=== PATIENT | male | born 1970 | race African-American/Black ===

== ENCOUNTER 2024-10-22 13:43 | Emergency (ER) | payer OTHER ==
--- OUTSIDE RECORDS SUMMARY | 2024-10-22 13:57 | XMS REPORT | Continuity of Care Document ---
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 [id number] Apply to area(s) 2 (two) times daily for 10 days. [facility] gentamicin 0.1 % ointment 2021-06 00:00: 00 05-19 05:59 :00 No [id number] Apply to area(s) 2 (two) times daily for 14 days. [facility] doxycycline hyclate 100 mg capsule 2021-06 1 00:00: 00 05-11 05:59 :00 No [id number] 100mg Take 1 capsule by mouth every 12 (twelve) hours for 14 days. [facility] doxycycline hyclate 100 mg capsule 03-22 00:00: 00 04-06 04:59 :00 No [id number] 100mg Take 1 capsule by mouth every 12 (twelve) hours for 14 days. [facility] doxycycline hyclate 100 mg capsule - 00:00: 00 03-16 04:59 :00 No [id number] 100mg Take 1 capsule by mouth every 12 (twelve) hours for 14 days. [facility] acetaminoph en (TYLENOL EXTRA STRENGTH) 500 mg tablet 12-21 11:59: 21 Yes 500mg Take 500 mg by mouth every 6 (six) hours as needed for Pain. [facility] clotrimazol e-betametha sone (LOTRISONE) cream 09-03 00:00: 00 12-30 00:00 :00 No [id number] Apply to area(s) 2 (two) times daily. [facility] Zinc Oxide (UNNA-FLEX ELASTIC UNNA BOOT) 4 X 10 "-yard [facility] 07-26 00:00: 00 Yes [id number] Use as directed [facility] Zinc Oxide (UNNA-FLEX ELASTIC UNNA BOOT) 4 X 10 "-yard [facility] 07-26 00:00: 00 Yes [id number] Use as directed [facility] ergocalcife rol, vitamin d2, (VITAMIN D2) 1,250 mcg (50,000 unit) capsule 2020-06 00:00: 00 Yes [id number] Take 1 capsule by mouth weekly. [facility] Non-Adheren t Bandage (MEPITEL) 2 X 3 " [facility] 2020-06 00:00: 00 Yes [id number] Use as directed [facility] Non-Adheren t Bandage (MEPITEL) 2 X 3 " [facility] 2020-06 0 00:00: 00 Yes [id number] Use as directed [facility] silver sulfate-non adh bandage 6 X 8 " [facility] - 00:00: 00 Yes [id number] Use as directed [facility] silver sulfate-non adh bandage 6 X 8 " [facility] 01-11 00:00: 00 Yes [id number] Use as directed [facility] omeprazole 40 mg capsule 11-25 00:00: 00 12-21 00:00 :00 No [id number] 40mg Take 1 capsule by mouth 2 (two) times daily. [facility] sodium hypochlorit e 0.125 % (DAKIN'S SOLUTION) solution 11-16 00:00: 00 Yes [id number] Apply to area(s) daily. [facility] lisinopriL- hydrochloro thiazide 20-12.5 mg per tablet 4-13 00:00: 00 02-23 00:00 :00 No [id number] 1{tbl} Take 1 tablet by mouth daily. [facility] calamine-zi nc oxide lotion 354 mL 07-23 17:12: 00 Yes 354mL [facility] Foam Bandage-Sadaf alva Sulfate (MEPILEX AG) 6 X 6 " [facility] 2018-06 0 00:00: 00 Yes [id number] Use as directed. Place over open wounds. [facility] Foam Bandage-Sadaf alva Sulfate (MEPILEX AG) 6 X 6 " [facility] 2018-06 0 00:00: 00 Yes [id number] Use as directed. Place over open wounds. [facility] silver nitrate applicator 2018-06 00:00: 00 12-21 00:00 :00 No [id number] 1{appli cator} Apply 1 Applicator to area(s) as needed (wound care). [facility] Immunizations Ordered Immunization Name Filled Immunization Name Date Status Comments Source Flu Injectable [facility]CK Pres-Free (FLUCELVAX) 2024-04-01 00:00:00 Completed [facility] SARS-COV-2 COVID-19 MODERNA 12+ YRS VACCINE 2024-03-19 15:00:00 Completed [facility] TDAP 2024-03-19 15:00:00 Completed [facility] Influenza Virus Vaccine Quad IM, Preserv and ABX Free 6 MO-64 YRS (FLUCELVAX) 2024-03-19 15:00:00 Completed [facility] SARS-COV-2 COVID-19 MODERNA 12+ YRS VACCINE 2024-03-05 09:30:00 Completed [facility] TDAP 2024-03-05 09:30:00 Completed [facility] SARS-COV-2 COVID-19 MODERNA 12+ YRS VACCINE 2023-12-12 09:30:00 Completed [facility] TDAP 2023-12-12 09:30:00 Completed [facility] Influenza Virus Vaccine Quad IM, Preserv and ABX Free 6 MO-64 YRS (FLUCELVAX) 2023-12-12 09:30:00 Completed [facility] SARS-COV-2 COVID-19 MODERNA 12+ YRS VACCINE 2023-12-08 10:15:00 Completed [facility] TDAP 2023-12-08 10:15:00 Completed [facility] Influenza Virus Vaccine Quad IM, Preserv and ABX Free 6 MO-64 YRS (FLUCELVAX) 2023-12-08 10:15:00 Completed [facility] SARS-COV-2 COVID-19 MODERNA 12+ YRS VACCINE 2023-12-05 10:15:00 Completed [facility] TDAP 2023-12-05 10:15:00 Completed [facility] Influenza Virus Vaccine Quad IM, Preserv and ABX Free 6 MO-64 YRS (FLUCELVAX) 2023-12-05 10:15:00 Completed [facility] SARS-COV-2 COVID-19 MODERNA 12+ YRS VACCINE 2023-11-30 10:15:00 Completed [facility] TDAP 2023-11-30 10:15:00 Completed [facility] Influenza Virus Vaccine Quad IM, Preserv and ABX Free 6 MO-64 YRS (FLUCELVAX) 2023-11-30 10:15:00 Completed [facility] SARS-COV-2 COVID-19 MODERNA 12+ YRS VACCINE 2023-11-24 11:00:00 Completed [facility] TDAP 2023-11-24 11:00:00 Completed [facility] Influenza Virus Vaccine Quad IM, Preserv and ABX Free 6 MO-64 YRS (FLUCELVAX) 2023-11-24 11:00:00 Completed [facility] SARS-COV-2 COVID-19 MODERNA 12+ YRS VACCINE 2023-11-10 11:00:00 Completed [facility] TDAP 2023-11-10 11:00:00 Completed [facility] Influenza Virus Vaccine Quad IM, Preserv and ABX Free 6 MO-64 YRS (FLUCELVAX) 2023-11-10 11:00:00 Completed [facility] SARS-COV-2 COVID-19 MODERNA 12+ YRS VACCINE 2023-11-03 14:30:00 Completed [facility] TDAP 2023-11-03 14:30:00 Completed [facility] Influenza Virus Vaccine Quad IM, Preserv and ABX Free 6 MO-64 YRS (FLUCELVAX) 2023-11-03 14:30:00 Completed [facility] SARS-COV-2 COVID-19 MODERNA 12+ YRS VACCINE 2023-10-31 14:30:00 Completed [facility] TDAP 2023-10-31 14:30:00 Completed [facility] Influenza Virus Vaccine Quad IM, Preserv and ABX Free 6 MO-64 YRS (FLUCELVAX) 2023-10-31 14:30:00 Completed [facility] SARS-COV-2 COVID-19 MODERNA 12+ YRS VACCINE 2023-10-26 08:00:00 Completed [facility] TDAP 2023-10-26 08:00:00 Completed [facility] Influenza Virus Vaccine Quad IM, Preserv and ABX Free 6 MO-64 YRS (FLUCELVAX) 2023-10-26 08:00:00 Completed [facility] SARS-COV-2 COVID-19 MODERNA 12+ YRS VACCINE 2023-10-20 14:00:00 Completed [facility] TDAP 2023-10-20 14:00:00 Completed [facility] Influenza Virus Vaccine Quad IM, Preserv and ABX Free 6 MO-64 YRS (FLUCELVAX) 2023-10-20 14:00:00 Completed [facility] SARS-COV-2 COVID-19 MODERNA 12+ YRS VACCINE 2023-10-17 15:15:00 Completed [facility] TDAP 2023-10-17 15:15:00 Completed [facility] Influenza Virus Vaccine Quad IM, Preserv and ABX Free 6 MO-64 YRS (FLUCELVAX) 2023-10-17 15:15:00 Completed [facility] SARS-COV-2 COVID-19 MODERNA 12+ YRS VACCINE 2023-10-12 13:00:00 Completed [facility] TDAP 2023-10-12 13:00:00 Completed [facility] Influenza Virus Vaccine Quad IM, Preserv and ABX Free 6 MO-64 YRS (FLUCELVAX) 2023-10-12 13:00:00 Completed [facility] SARS-COV-2 COVID-19 MODERNA 12+ YRS VACCINE 2023-10-06 08:45:00 Completed [facility] TDAP 2023-10-06 08:45:00 Completed [facility] Influenza Virus Vaccine Quad IM, Preserv and ABX Free 6 MO-64 YRS (FLUCELVAX) 2023-10-06 08:45:00 Completed [facility] SARS-COV-2 COVID-19 MODERNA 12+ YRS VACCINE 2023-10-04 00:00:00 Completed [facility] TDAP 2023-10-04 00:00:00 Completed [facility] Influenza Virus Vaccine Quad IM, Preserv and ABX Free 6 MO-64 YRS (FLUCELVAX) 2023-10-04 00:00:00 Completed [facility] SARS-COV-2 COVID-19 MODERNA 12+ YRS VACCINE 2023-10-03 08:00:00 Completed [facility] TDAP 2023-10-03 08:00:00 Completed [facility] Influenza Virus Vaccine Quad IM, Preserv and ABX Free 6 MO-64 YRS (FLUCELVAX) 2023-10-03 08:00:00 Completed [facility] SARS-COV-2 COVID-19 MODERNA 12+ YRS VACCINE 2023-10-02 00:00:00 Completed [facility] TDAP 2023-10-02 00:00:00 Completed [facility] Influenza Virus Vaccine Quad IM, Preserv and ABX Free 6 MO-64 YRS (FLUCELVAX) 2023-10-02 00:00:00 Completed [facility] SARS-COV-2 COVID-19 MODERNA 12+ YRS VACCINE 2023-09-29 11:30:00 Completed [facility] TDAP 2023-09-29 11:30:00 Completed [facility] Influenza Virus Vaccine Quad IM, Preserv and ABX Free 6 MO-64 YRS (FLUCELVAX) 2023-09-29 11:30:00 Completed [facility] Influenza Virus Vaccine Quad IM, Preserv and ABX Free 6 MO-64 YRS (FLUCELVAX) 2023-09-29 10:30:00 Completed [facility] SARS-COV-2 COVID-19 MODERNA 12+ YRS VACCINE 2023-09-29 10:30:00 Completed [facility] TDAP 2023-09-29 10:30:00 Completed [facility] SARS-COV-2 COVID-19 MODERNA 12+ YRS VACCINE 2023-09-27 15:15:00 Completed [facility] TDAP 2023-09-27 15:15:00 Completed [facility] Influenza Virus Vaccine Quad IM, Preserv and ABX Free 6 MO-64 YRS (FLUCELVAX) 2023-09-27 15:15:00 Completed [facility] SARS-COV-2 COVID-19 MODERNA 12+ YRS VACCINE 2023-09-15 14:00:00 Completed [facility] TDAP 2023-09-15 14:00:00 Completed [facility] Influenza Virus Vaccine Quad IM, Preserv and ABX Free 6 MO-64 YRS (FLUCELVAX) 2023-09-15 14:00:00 Completed [facility] SARS-COV-2 COVID-19 MODERNA 12+ YRS VACCINE 2023-09-12 15:15:00 Completed [facility] TDAP 2023-09-12 15:15:00 Completed [facility] Influenza Virus Vaccine Quad IM, Preserv and ABX Free 6 MO-64 YRS (FLUCELVAX) 2023-09-12 15:15:00 Completed [facility] SARS-COV-2 COVID-19 MODERNA 12+ YRS VACCINE 2023-09-06 13:00:00 Completed [facility] TDAP 2023-09-06 13:00:00 Completed [facility] Influenza Virus Vaccine Quad IM, Preserv and ABX Free 6 MO-64 YRS (FLUCELVAX) 2023-09-06 13:00:00 Completed [facility] SARS-COV-2 COVID-19 MODERNA 12+ YRS VACCINE 2023-09-06 00:00:00 Completed [facility] TDAP 2023-09-06 00:00:00 Completed [facility] Influenza Virus Vaccine Quad IM, Preserv and ABX Free 6 MO-64 YRS (FLUCELVAX) 2023-09-06 00:00:00 Completed [facility] SARS-COV-2 COVID-19 MODERNA 12+ YRS VACCINE 2023-09-06 00:00:00 Completed [facility] TDAP 2023-09-06 00:00:00 Completed [facility] Influenza Virus Vaccine Quad IM, Preserv and ABX Free 6 MO-64 YRS (FLUCELVAX) 2023-09-06 00:00:00 Completed [facility] SARS-COV-2 COVID-19 MODERNA 12+ YRS VACCINE 2023-09-04 00:00:00 Completed [facility] TDAP 2023-09-04 00:00:00 Completed [facility] Influenza Virus Vaccine Quad IM, Preserv and ABX Free 6 MO-64 YRS (FLUCELVAX) 2023-09-04 00:00:00 Completed [facility] SARS-COV-2 COVID-19 MODERNA 12+ YRS VACCINE 2023-09-01 15:15:00 Completed [facility] TDAP 2023-09-01 15:15:00 Completed [facility] Influenza Virus Vaccine Quad IM, Preserv and ABX Free 6 MO-64 YRS (FLUCELVAX) 2023-09-01 15:15:00 Completed [facility] SARS-COV-2 COVID-19 MODERNA 12+ YRS VACCINE 2023-09-01 00:00:00 Completed [facility] TDAP 2023-09-01 00:00:00 Completed [facility] Influenza Virus Vaccine Quad IM, Preserv and ABX Free 6 MO-64 YRS (FLUCELVAX) 2023-09-01 00:00:00 Completed [facility] SARS-COV-2 COVID-19 MODERNA 12+ YRS VACCINE 2023-08-25 16:00:00 Completed [facility] TDAP 2023-08-25 16:00:00 Completed [facility] Influenza Virus Vaccine Quad IM, Preserv and ABX Free 6 MO-64 YRS (FLUCELVAX) 2023-08-25 16:00:00 Completed [facility] SARS-COV-2 COVID-19 MODERNA 12+ YRS VACCINE 2023-08-23 00:00:00 Completed [facility] TDAP 2023-08-23 00:00:00 Completed [facility] Influenza Virus Vaccine Quad IM, Preserv and ABX Free 6 MO-64 YRS (FLUCELVAX) 2023-08-23 00:00:00 Completed [facility] SARS-COV-2 COVID-19 MODERNA 12+ YRS VACCINE 2023-08-22 13:45:00 Completed [facility] TDAP 2023-08-22 13:45:00 Completed [facility] Influenza Virus Vaccine Quad IM, Preserv and ABX Free 6 MO-64 YRS (FLUCELVAX) 2023-08-22 13:45:00 Completed [facility] SARS-COV-2 COVID-19 MODERNA 12+ YRS VACCINE 2023-08-18 13:45:00 Completed [facility] TDAP 2023-08-18 13:45:00 Completed [facility] Influenza Virus Vaccine Quad IM, Preserv and ABX Free 6 MO-64 YRS (FLUCELVAX) 2023-08-18 13:45:00 Completed [facility] SARS-COV-2 COVID-19 MODERNA 12+ YRS VACCINE 2023-08-15 16:45:00 Completed [facility] TDAP 2023-08-15 16:45:00 Completed [facility] Influenza Virus Vaccine Quad IM, Preserv and ABX Free 6 MO-64 YRS (FLUCELVAX) 2023-08-15 16:45:00 Completed [facility] SARS-COV-2 COVID-19 MODERNA 12+ YRS VACCINE 2023-08-11 13:00:00 Completed [facility] TDAP 2023-08-11 13:00:00 Completed [facility] Influenza Virus Vaccine Quad IM, Preserv and ABX Free 6 MO-64 YRS (FLUCELVAX) 2023-08-11 13:00:00 Completed [facility] Influenza Virus Vaccine Quad IM, Preserv and ABX Free 6 MO-64 YRS (FLUCELVAX) 2023-08-11 10:30:00 Completed [facility] SARS-COV-2 COVID-19 MODERNA 12+ YRS VACCINE 2023-08-11 10:30:00 Completed [facility] TDAP 2023-08-11 10:30:00 Completed [facility] SARS-COV-2 COVID-19 MODERNA 12+ YRS VACCINE 2023-08-11 10:22:01 Completed [facility] TDAP 2023-08-11 10:22:01 Completed [facility] Influenza Virus Vaccine Quad IM, Preserv and ABX Free 6 MO-64 YRS (FLUCELVAX) 2023-08-11 10:22:01 Completed [facility] SARS-COV-2 COVID-19 MODERNA 12+ YRS VACCINE 2023-08-11 00:00:00 Completed [facility] TDAP 2023-08-11 00:00:00 Completed [facility] Influenza Virus Vaccine Quad IM, Preserv and ABX Free 6 MO-64 YRS (FLUCELVAX) 2023-08-11 00:00:00 Completed [facility] Influenza Virus Vaccine Quad IM, Preserv and ABX Free 6 MO-64 YRS (FLUCELVAX) 2023-08-03 00:00:00 Completed [facility] SARS-COV-2 COVID-19 MODERNA 12+ YRS VACCINE 2023-08-03 00:00:00 Completed [facility] TDAP 2023-08-03 00:00:00 Completed [facility] SARS-COV-2 COVID-19 MODERNA 12+ YRS VACCINE 2023-08-02 14:30:00 Completed [facility] TDAP 2023-08-02 14:30:00 Completed [facility] Influenza Virus Vaccine Quad IM, Preserv and ABX Free 6 MO-64 YRS (FLUCELVAX) 2023-08-02 14:30:00 Completed [facility] SARS-COV-2 COVID-19 MODERNA 12+ YRS VACCINE 2023-07-31 22:23:00 Completed [facility] TDAP 2023-07-31 22:23:00 Completed [facility] Influenza Virus Vaccine Quad IM, Preserv and ABX Free 6 MO-64 YRS (FLUCELVAX) 2023-07-31 22:23:00 Completed [facility] SARS-COV-2 COVID-19 MODERNA 12+ YRS VACCINE 2023-07-28 10:15:00 Completed [facility] TDAP 2023-07-28 10:15:00 Completed [facility] Influenza Virus Vaccine Quad IM, Preserv and ABX Free 6 MO-64 YRS (FLUCELVAX) 2023-07-28 10:15:00 Completed [facility] SARS-COV-2 COVID-19 MODERNA 12+ YRS VACCINE 2023-07-28 00:00:00 Completed [facility] TDAP 2023-07-28 00:00:00 Completed [facility] Influenza Virus Vaccine Quad IM, Preserv and ABX Free 6 MO-64 YRS (FLUCELVAX) 2023-07-28 00:00:00 Completed [facility] SARS-COV-2 COVID-19 MODERNA 12+ YRS VACCINE 2023-07-19 13:00:00 Completed [facility] TDAP 2023-07-19 13:00:00 Completed [facility] Influenza Virus Vaccine Quad IM, Preserv and ABX Free 6 MO-64 YRS (FLUCELVAX) 2023-07-19 13:00:00 Completed [facility] SARS-COV-2 COVID-19 MODERNA 12+ YRS VACCINE 2023-07-14 09:30:00 Completed [facility] TDAP 2023-07-14 09:30:00 Completed [facility] Influenza Virus Vaccine Quad IM, Preserv and ABX Free 6 MO-64 YRS (FLUCELVAX) 2023-07-14 09:30:00 Completed [facility] SARS-COV-2 COVID-19 MODERNA 12+ YRS VACCINE 2023-07-11 00:00:00 Completed [facility] TDAP 2023-07-11 00:00:00 Completed [facility] Influenza Virus Vaccine Quad IM, Preserv and ABX Free 6 MO-64 YRS (FLUCELVAX) 2023-07-11 00:00:00 Completed [facility] SARS-COV-2 COVID-19 MODERNA 12+ YRS VACCINE 2023-06-30 13:00:00 Completed [facility] TDAP 2023-06-30 13:00:00 Completed [facility] Influenza Virus Vaccine Quad IM, Preserv and ABX Free 6 MO-64 YRS (FLUCELVAX) 2023-06-30 13:00:00 Completed [facility] SARS-COV-2 COVID-19 MODERNA 12+ YRS VACCINE 2023-06-27 14:30:00 Completed [facility] TDAP 2023-06-27 14:30:00 Completed [facility] Influenza Virus Vaccine Quad IM, Preserv and ABX Free 6 MO-64 YRS (FLUCELVAX) 2023-06-27 14:30:00 Completed [facility] SARS-COV-2 COVID-19 MODERNA 12+ YRS VACCINE 2023-06-20 00:00:00 Completed [facility] TDAP 2023-06-20 00:00:00 Completed [facility] Influenza Virus Vaccine Quad IM, Preserv and ABX Free 6 MO-64 YRS (FLUCELVAX) 2023-06-20 00:00:00 Completed [facility] SARS-COV-2 COVID-19 MODERNA 12+ YRS VACCINE 2023-06-14 15:15:00 Completed [facility] TDAP 2023-06-14 15:15:00 Completed [facility] Influenza Virus Vaccine Quad IM, Preserv and ABX Free 6 MO-64 YRS (FLUCELVAX) 2023-06-14 15:15:00 Completed [facility] SARS-COV-2 COVID-19 MODERNA 12+ YRS VACCINE 2023-06-08 13:00:00 Completed [facility] TDAP 2023-06-08 13:00:00 Completed [facility] Influenza Virus Vaccine Quad IM, Preserv and ABX Free 6 MO-64 YRS (FLUCELVAX) 2023-06-08 13:00:00 Completed [facility] SARS-COV-2 COVID-19 MODERNA 12+ YRS VACCINE 2023-06-01 13:00:00 Completed [facility] TDAP 2023-06-01 13:00:00 Completed [facility] Influenza Virus Vaccine Quad IM, Preserv and ABX Free 6 MO-64 YRS (FLUCELVAX) 2023-06-01 13:00:00 Completed [facility] SARS-COV-2 COVID-19 MODERNA 12+ YRS VACCINE 2023-05-25 13:00:00 Completed [facility] TDAP 2023-05-25 13:00:00 Completed [facility] Influenza Virus Vaccine Quad IM, Preserv and ABX Free 6 MO-64 YRS (FLUCELVAX) 2023-05-25 13:00:00 Completed [facility] SARS-COV-2 COVID-19 MODERNA 12+ YRS VACCINE 2023-05-16 13:00:00 Completed [facility] TDAP 2023-05-16 13:00:00 Completed [facility] Influenza Virus Vaccine Quad IM, Preserv and ABX Free 6 MO-64 YRS (FLUCELVAX) 2023-05-16 13:00:00 Completed [facility] SARS-COV-2 COVID-19 MODERNA 12+ YRS VACCINE 2023-05-12 00:00:00 Completed [facility] TDAP 2023-05-12 00:00:00 Completed [facility] Influenza Virus Vaccine Quad IM, Preserv and ABX Free 6 MO-64 YRS (FLUCELVAX) 2023-05-12 00:00:00 Completed [facility] Influenza Virus Vaccine Quad IM, Preserv and ABX Free 6 MO-64 YRS (FLUCELVAX) 2023-04-27 13:00:00 Completed [facility] SARS-COV-2 COVID-19 MODERNA 12+ YRS VACCINE 2023-04-27 13:00:00 Completed [facility] TDAP 2023-04-27 13:00:00 Completed [facility] SARS-COV-2 COVID-19 MODERNA 12+ YRS VACCINE 2023-04-20 00:00:00 Completed [facility] TDAP 2023-04-20 00:00:00 Completed [facility] Influenza Virus Vaccine Quad IM, Preserv and ABX Free 6 MO-64 YRS (FLUCELVAX) 2023-04-20 00:00:00 Completed [facility] SARS-COV-2 COVID-19 MODERNA 12+ YRS VACCINE 2023-04-14 13:00:00 Completed [facility] TDAP 2023-04-14 13:00:00 Completed [facility] Influenza Virus Vaccine Quad IM, Preserv and ABX Free 6 MO-64 YRS (FLUCELVAX) 2023-04-14 13:00:00 Completed [facility] SARS-COV-2 COVID-19 MODERNA 12+ YRS VACCINE 2023-04-07 08:00:00 Completed [facility] TDAP 2023-04-07 08:00:00 Completed [facility] Influenza Virus Vaccine Quad IM, Preserv and ABX Free 6 MO-64 YRS (FLUCELVAX) 2023-04-07 08:00:00 Completed [facility] SARS-COV-2 COVID-19 MODERNA 12+ YRS VACCINE 2023-03-31 08:00:00 Completed [facility] TDAP 2023-03-31 08:00:00 Completed [facility] Influenza Virus Vaccine Quad IM, Preserv and ABX Free 6 MO-64 YRS (FLUCELVAX) 2023-03-31 08:00:00 Completed [facility] SARS-COV-2 COVID-19 MODERNA 12+ YRS VACCINE 2023-03-28 14:30:00 Completed [facility] TDAP 2023-03-28 14:30:00 Completed [facility] Influenza Virus Vaccine Quad IM, Preserv and ABX Free 6 MO-64 YRS (FLUCELVAX) 2023-03-28 14:30:00 Completed [facility] SARS-COV-2 COVID-19 MODERNA 12+ YRS VACCINE 2023-03-24 08:00:00 Completed [facility] TDAP 2023-03-24 08:00:00 Completed [facility] Influenza Virus Vaccine Quad IM, Preserv and ABX Free 6 MO-64 YRS (FLUCELVAX) 2023-03-24 08:00:00 Completed [facility] SARS-COV-2 COVID-19 MODERNA 12+ YRS VACCINE 2023-03-17 08:00:00 Completed [facility] TDAP 2023-03-17 08:00:00 Completed [facility] Influenza Virus Vaccine Quad IM, Preserv and ABX Free 6 MO-64 YRS (FLUCELVAX) 2023-03-17 08:00:00 Completed [facility] SARS-COV-2 COVID-19 MODERNA 12+ YRS VACCINE 2022-06-03 00:00:00 Completed [facility] TDAP 2022-06-03 00:00:00 Completed [facility] Influenza Virus Vaccine Quad IM, Preserv and ABX Free 6 MO-64 YRS (FLUCELVAX) 2022-06-03 00:00:00 Completed [facility] SARS-COV-2 COVID-19 MODERNA 12+ YRS VACCINE 2021-12-31 00:00:00 Completed [facility] TDAP 2021-12-31 00:00:00 Completed [facility] Influenza Virus Vaccine Quad IM, Preserv and ABX Free 6 MO-64 YRS (FLUCELVAX) 2021-12-31 00:00:00 Completed [facility] SARS-COV-2 COVID-19 MODERNA 12+ YRS VACCINE 2021-10-04 00:00:00 Completed [facility] TDAP 2021-10-04 00:00:00 Completed [facility] Influenza Virus Vaccine Quad IM, Preserv and ABX Free 6 MO-64 YRS (FLUCELVAX) 2021-10-04 00:00:00 Completed [facility] SARS-COV-2 COVID-19 MODERNA 12+ YRS VACCINE 2021-04-08 00:00:00 Completed [facility] TDAP 2021-04-08 00:00:00 Completed [facility] Influenza Virus Vaccine Quad IM, Preserv and ABX Free 6 MO-64 YRS (FLUCELVAX) 2021-04-08 00:00:00 Completed [facility] Influenza Virus Vaccine Quad IM, Preserv and ABX Free 6 MO-64 YRS (FLUCELVAX) 2021-04-02 00:00:00 Completed [facility] TDAP 2021-04-02 00:00:00 Completed [facility] Influenza Virus Vaccine Quad IM, Preserv and ABX Free 6 MO-64 YRS (FLUCELVAX) 2021-04-02 00:00:00 Completed [facility] TDAP 2021-04-02 00:00:00 Completed [facility] Influenza Virus Vaccine Quad IM, Preserv and ABX Free 6 MO-64 YRS (FLUCELVAX) 2021-04-02 00:00:00 Completed [facility] TDAP 2021-04-02 00:00:00 Completed [facility] Influenza Virus Vaccine Quad IM, Preserv and ABX Free 6 MO-64 YRS (FLUCELVAX) 2021-04-02 00:00:00 Completed [facility] TDAP 2021-04-02 00:00:00 Completed [facility] Influenza Virus Vaccine Quad IM, Preserv and ABX Free 6 MO-64 YRS (FLUCELVAX) 2021-04-02 00:00:00 Completed [facility] TDAP 2021-04-02 00:00:00 Completed [facility] Influenza Virus Vaccine Quad IM, Preserv and ABX Free 6 MO-64 YRS 2021-04-02 00:00:00 Completed [facility] TDAP 2021-04-02 00:00:00 Completed [facility] Influenza Virus Vaccine Quad IM, Preserv and ABX Free 6 MO-64 YRS 2021-04-02 00:00:00 Completed [facility] TDAP 2021-04-02 00:00:00 Completed [facility] Influenza Virus Vaccine Quad IM, Preserv and ABX Free 6 MO-64 YRS 2021-04-02 00:00:00 Completed [facility] TDAP 2021-04-02 00:00:00 Completed [facility] Influenza Virus Vaccine Quad IM, Preserv and ABX Free 6 MO-64 YRS 2021-04-02 00:00:00 Completed [facility] TDAP 2021-04-02 00:00:00 Completed [facility] Influenza Virus Vaccine Quad IM, Preserv and ABX Free 6 MO-64 YRS 2021-04-02 00:00:00 Completed [facility] TDAP 2021-04-02 00:00:00 Completed [facility] Influenza Virus Vaccine Quad IM, Preserv and ABX Free 6 MO-64 YRS 2021-04-02 00:00:00 Completed [facility] TDAP 2021-04-02 00:00:00 Completed [facility] Influenza Virus Vaccine Quad IM, Preserv and ABX Free 6 MO-64 YRS 2021-04-02 00:00:00 Completed [facility] TDAP 2021-04-02 00:00:00 Completed [facility] Influenza Virus Vaccine Quad IM, Preserv and ABX Free 6 MO-64 YRS 2021-04-02 00:00:00 Completed [facility] TDAP 2021-04-02 00:00:00 Completed [facility] Influenza Virus Vaccine Quad IM, Preserv and ABX Free 6 MO-64 YRS 2021-04-02 00:00:00 Completed [facility] TDAP 2021-04-02 00:00:00 Completed [facility] Influenza Virus Vaccine Quad IM, Preserv and ABX Free 6 MO-64 YRS 2021-04-02 00:00:00 Completed [facility] TDAP 2021-04-02 00:00:00 Completed [facility] Influenza Virus Vaccine Quad IM, Preserv and ABX Free 6 MO-64 YRS 2021-04-02 00:00:00 Completed [facility] TDAP 2021-04-02 00:00:00 Completed [facility] Influenza Virus Vaccine Quad IM, Preserv and ABX Free 6 MO-64 YRS 2021-04-02 00:00:00 Completed [facility] TDAP 2021-04-02 00:00:00 Completed [facility] Influenza Virus Vaccine Quad IM, Preserv and ABX Free 6 MO-64 YRS 2021-04-02 00:00:00 Completed [facility] TDAP 2021-04-02 00:00:00 Completed [facility] Influenza Virus Vaccine Quad IM, Preserv and ABX Free 6 MO-64 YRS 2021-04-02 00:00:00 Completed [facility] TDAP 2021-04-02 00:00:00 Completed [facility] Influenza Virus Vaccine Quad IM, Preserv and ABX Free 6 MO-64 YRS 2021-04-02 00:00:00 Completed [facility] TDAP 2021-04-02 00:00:00 Completed [facility] Influenza Virus Vaccine Quad IM, Preserv and ABX Free 6 MO-64 YRS 2021-04-02 00:00:00 Completed [facility] TDAP 2021-04-02 00:00:00 Completed [facility] Influenza Virus Vaccine Quad IM, Preserv and ABX Free 6 MO-64 YRS 2021-04-02 00:00:00 Completed [facility] TDAP 2021-04-02 00:00:00 Completed [facility] Influenza Virus Vaccine Quad IM, Preserv and ABX Free 6 MO-64 YRS 2021-04-02 00:00:00 Completed [facility] TDAP 2021-04-02 00:00:00 Completed [facility] Influenza Virus Vaccine Quad IM, Preserv and ABX Free 6 MO-64 YRS 2021-04-02 00:00:00 Completed [facility] TDAP 2021-04-02 00:00:00 Completed [facility] Influenza Virus Vaccine Quad IM, Preserv and ABX Free 6 MO-64 YRS 2021-04-02 00:00:00 Completed [facility] TDAP 2021-04-02 00:00:00 Completed [facility] Influenza Virus Vaccine Quad IM, Preserv and ABX Free 6 MO-64 YRS 2021-04-02 00:00:00 Completed [facility] TDAP 2021-04-02 00:00:00 Completed [facility] Influenza Virus Vaccine Quad IM, Preserv and ABX Free 6 MO-64 YRS 2021-04-02 00:00:00 Completed [facility] TDAP 2021-04-02 00:00:00 Completed [facility] Influenza Virus Vaccine Quad IM, Preserv and ABX Free 6 MO-64 YRS 2021-04-02 00:00:00 Completed [facility] TDAP 2021-04-02 00:00:00 Completed [facility] Influenza Virus Vaccine Quad IM, Preserv and ABX Free 6 MO-64 YRS 2021-04-02 00:00:00 Completed [facility] TDAP 2021-04-02 00:00:00 Completed [facility] Influenza Virus Vaccine Quad IM, Preserv and ABX Free 6 MO-64 YRS 2021-04-02 00:00:00 Completed [facility] TDAP 2021-04-02 00:00:00 Completed [facility] Influenza Virus Vaccine Quad IM, Preserv and ABX Free 6 MO-64 YRS 2021-04-02 00:00:00 Completed [facility] TDAP 2021-04-02 00:00:00 Completed [facility] Influenza Virus Vaccine Quad IM, Preserv and ABX Free 6 MO-64 YRS 2021-04-02 00:00:00 Completed [facility] TDAP 2021-04-02 00:00:00 Completed [facility] Influenza Virus Vaccine Quad IM, Preserv and ABX Free 6 MO-64 YRS 2021-04-02 00:00:00 Completed [facility] TDAP 2021-04-02 00:00:00 Completed [facility] Influenza Virus Vaccine Quad IM, Preserv and ABX Free 6 MO-64 YRS 2021-04-02 00:00:00 Completed [facility] TDAP 2021-04-02 00:00:00 Completed [facility] Influenza Virus Vaccine Quad IM, Preserv and ABX Free 6 MO-64 YRS 2021-04-02 00:00:00 Completed [facility] TDAP 2021-04-02 00:00:00 Completed [facility] Influenza Virus Vaccine Quad IM, Preserv and ABX Free 6 MO-64 YRS 2021-04-02 00:00:00 Completed [facility] TDAP 2021-04-02 00:00:00 Completed [facility] Influenza Virus Vaccine Quad IM, Preserv and ABX Free 6 MO-64 YRS 2021-04-02 00:00:00 Completed [facility] TDAP 2021-04-02 00:00:00 Completed [facility] Influenza Virus Vaccine Quad IM, Preserv and ABX Free 6 MO-64 YRS 2021-04-02 00:00:00 Completed [facility] TDAP 2021-04-02 00:00:00 Completed [facility] Influenza Virus Vaccine Quad IM, Preserv and ABX Free 6 MO-64 YRS 2021-04-02 00:00:00 Completed [facility] TDAP 2021-04-02 00:00:00 Completed [facility] Influenza Virus Vaccine Quad IM, Preserv and ABX Free 6 MO-64 YRS 2021-04-02 00:00:00 Completed [facility] TDAP 2021-04-02 00:00:00 Completed [facility] Influenza Virus Vaccine Quad IM, Preserv and ABX Free 6 MO-64 YRS 2021-04-02 00:00:00 Completed [facility] TDAP 2021-04-02 00:00:00 Completed [facility] Influenza Virus Vaccine Quad IM, Preserv and ABX Free 6 MO-64 YRS 2021-04-02 00:00:00 Completed [facility] TDAP 2021-04-02 00:00:00 Completed [facility] Influenza Virus Vaccine Quad IM, Preserv and ABX Free 6 MO-64 YRS 2021-04-02 00:00:00 Completed [facility] TDAP 2021-04-02 00:00:00 Completed [facility] Influenza Virus Vaccine Quad IM, Preserv and ABX Free 6 MO-64 YRS 2021-04-02 00:00:00 Completed [facility] TDAP 2021-04-02 00:00:00 Completed [facility] Influenza Virus Vaccine Quad IM, Preserv and ABX Free 6 MO-64 YRS 2021-04-02 00:00:00 Completed [facility] TDAP 2021-04-02 00:00:00 Completed [facility] Influenza Virus Vaccine Quad IM, Preserv and ABX Free 6 MO-64 YRS 2021-04-02 00:00:00 Completed [facility] TDAP 2021-04-02 00:00:00 Completed [facility] Influenza Virus Vaccine Quad IM, Preserv and ABX Free 6 MO-64 YRS 2021-04-02 00:00:00 Completed [facility] TDAP 2021-04-02 00:00:00 Completed [facility] Influenza Virus Vaccine Quad IM, Preserv and ABX Free 6 MO-64 YRS 2021-04-02 00:00:00 Completed [facility] TDAP 2021-04-02 00:00:00 Completed [facility] Influenza Virus Vaccine Quad IM, Preserv and ABX Free 6 MO-64 YRS 2021-04-02 00:00:00 Completed [facility] TDAP 2021-04-02 00:00:00 Completed [facility] Influenza Virus Vaccine Quad IM, Preserv and ABX Free 6 MO-64 YRS 2021-04-02 00:00:00 Completed [facility] TDAP 2021-04-02 00:00:00 Completed [facility] Influenza Virus Vaccine Quad IM, Preserv and ABX Free 6 MO-64 YRS 2021-04-02 00:00:00 Completed [facility] TDAP 2021-04-02 00:00:00 Completed [facility] Influenza Virus Vaccine Quad IM, Preserv and ABX Free 6 MO-64 YRS 2021-04-02 00:00:00 Completed [facility] TDAP 2021-04-02 00:00:00 Completed [facility] Influenza Virus Vaccine Quad IM, Preserv and ABX Free 6 MO-64 YRS 2021-04-02 00:00:00 Completed [facility] TDAP 2021-04-02 00:00:00 Completed [facility] Influenza Virus Vaccine Quad IM, Preserv and ABX Free 6 MO-64 YRS 2021-04-02 00:00:00 Completed [facility] TDAP 2021-04-02 00:00:00 Completed [facility] Influenza Virus Vaccine Quad IM, Preserv and ABX Free 6 MO-64 YRS 2021-04-02 00:00:00 Completed [facility] TDAP 2021-04-02 00:00:00 Completed [facility] Influenza Virus Vaccine Quad IM, Preserv and ABX Free 6 MO-64 YRS 2021-04-02 00:00:00 Completed [facility] TDAP 2021-04-02 00:00:00 Completed [facility] Influenza Virus Vaccine Quad IM, Preserv and ABX Free 6 MO-64 YRS 2021-04-02 00:00:00 Completed [facility] TDAP 2021-04-02 00:00:00 Completed [facility] Influenza Virus Vaccine Quad IM, Preserv and ABX Free 6 MO-64 YRS 2021-04-02 00:00:00 Completed [facility] TDAP 2021-04-02 00:00:00 Completed [facility] Influenza Virus Vaccine Quad IM, Preserv and ABX Free 6 MO-64 YRS 2021-04-02 00:00:00 Completed [facility] TDAP 2021-04-02 00:00:00 Completed [facility] Influenza Virus Vaccine Quad IM, Preserv and ABX Free 6 MO-64 YRS 2021-04-02 00:00:00 Completed [facility] TDAP 2021-04-02 00:00:00 Completed [facility] Influenza Virus Vaccine Quad IM, Preserv and ABX Free 6 MO-64 YRS 2021-04-02 00:00:00 Completed [facility] TDAP 2021-04-02 00:00:00 Completed [facility] Influenza Virus Vaccine Quad IM, Preserv and ABX Free 6 MO-64 YRS 2021-04-02 00:00:00 Completed [facility] TDAP 2021-04-02 00:00:00 Completed [facility] Influenza Virus Vaccine Quad IM, Preserv and ABX Free 6 MO-64 YRS 2021-04-02 00:00:00 Completed [facility] TDAP 2021-04-02 00:00:00 Completed [facility] Influenza Virus Vaccine Quad IM, Preserv and ABX Free 6 MO-64 YRS 2021-04-02 00:00:00 Completed [facility] TDAP 2021-04-02 00:00:00 Completed [facility] Influenza Virus Vaccine Quad IM, Preserv and ABX Free 6 MO-64 YRS 2021-04-02 00:00:00 Completed [facility] TDAP 2021-04-02 00:00:00 Completed [facility] Influenza Virus Vaccine Quad IM, Preserv and ABX Free 6 MO-64 YRS 2021-04-02 00:00:00 Completed [facility] TDAP 2021-04-02 00:00:00 Completed [facility] Influenza Virus Vaccine Quad IM, Preserv and ABX Free 6 MO-64 YRS 2021-04-02 00:00:00 Completed [facility] TDAP 2021-04-02 00:00:00 Completed [facility] Influenza Virus Vaccine Quad IM, Preserv and ABX Free 6 MO-64 YRS 2021-04-02 00:00:00 Completed [facility] TDAP 2021-04-02 00:00:00 Completed [facility] Influenza Virus Vaccine Quad IM, Preserv and ABX Free 6 MO-64 YRS 2021-04-02 00:00:00 Completed [facility] TDAP 2021-04-02 00:00:00 Completed [facility] Influenza Virus Vaccine Quad IM, Preserv and ABX Free 6 MO-64 YRS 2021-04-02 00:00:00 Completed [facility] TDAP 2021-04-02 00:00:00 Completed [facility] Influenza Virus Vaccine Quad IM, Preserv and ABX Free 6 MO-64 YRS 2021-04-02 00:00:00 Completed [facility] TDAP 2021-04-02 00:00:00 Completed [facility] Influenza Virus Vaccine Quad IM, Preserv and ABX Free 6 MO-64 YRS 2021-04-02 00:00:00 Completed [facility] TDAP 2021-04-02 00:00:00 Completed [facility] Influenza Virus Vaccine Quad IM, Preserv and ABX Free 6 MO-64 YRS 2021-04-02 00:00:00 Completed [facility] TDAP 2021-04-02 00:00:00 Completed [facility] Influenza Virus Vaccine Quad IM, Preserv and ABX Free 6 MO-64 YRS 2021-04-02 00:00:00 Completed [facility] TDAP 2021-04-02 00:00:00 Completed [facility] Influenza Virus Vaccine Quad IM, Preserv and ABX Free 6 MO-64 YRS 2021-04-02 00:00:00 Completed [facility] TDAP 2021-04-02 00:00:00 Completed [facility] Influenza Virus Vaccine Quad IM, Preserv and ABX Free 6 MO-64 YRS 2021-04-02 00:00:00 Completed [facility] TDAP 2021-04-02 00:00:00 Completed [facility] Influenza Virus Vaccine Quad IM, Preserv and ABX Free 6 MO-64 YRS 2021-04-02 00:00:00 Completed [facility] TDAP 2021-04-02 00:00:00 Completed [facility] Influenza Virus Vaccine Quad IM, Preserv and ABX Free 6 MO-64 YRS 2021-04-02 00:00:00 Completed [facility] TDAP 2021-04-02 00:00:00 Completed [facility] Influenza Virus Vaccine Quad IM, Preserv and ABX Free 6 MO-64 YRS 2021-04-02 00:00:00 Completed [facility] TDAP 2021-04-02 00:00:00 Completed [facility] Influenza Virus Vaccine Quad IM, Preserv and ABX Free 6 MO-64 YRS 2021-04-02 00:00:00 Completed [facility] TDAP 2021-04-02 00:00:00 Completed [facility] Influenza Virus Vaccine Quad IM, Preserv and ABX Free 6 MO-64 YRS 2021-04-02 00:00:00 Completed [facility] TDAP 2021-04-02 00:00:00 Completed [facility] Influenza Virus Vaccine Quad IM, Preserv and ABX Free 6 MO-64 YRS 2021-04-02 00:00:00 Completed [facility] TDAP 2021-04-02 00:00:00 Completed [facility] Influenza Virus Vaccine Quad IM, Preserv and ABX Free 6 MO-64 YRS 2021-04-02 00:00:00 Completed [facility] TDAP 2021-04-02 00:00:00 Completed [facility] Influenza Virus Vaccine Quad IM, Preserv and ABX Free 6 MO-64 YRS 2021-04-02 00:00:00 Completed [facility] TDAP 2021-04-02 00:00:00 Completed [facility] Influenza Virus Vaccine Quad IM, Preserv and ABX Free 6 MO-64 YRS 2021-04-02 00:00:00 Completed [facility] TDAP 2021-04-02 00:00:00 Completed [facility] Influenza Virus Vaccine Quad IM, Preserv and ABX Free 6 MO-64 YRS 2021-04-02 00:00:00 Completed [facility] TDAP 2021-04-02 00:00:00 Completed [facility] Influenza Virus Vaccine Quad IM, Preserv and ABX Free 6 MO-64 YRS 2021-04-02 00:00:00 Completed [facility] TDAP 2021-04-02 00:00:00 Completed [facility] Influenza Virus Vaccine Quad IM, Preserv and ABX Free 6 MO-64 YRS 2021-04-02 00:00:00 Completed [facility] TDAP 2021-04-02 00:00:00 Completed [facility] Influenza Virus Vaccine Quad IM, Preserv and ABX Free 6 MO-64 YRS 2021-04-02 00:00:00 Completed [facility] TDAP 2021-04-02 00:00:00 Completed [facility] SARS-COV-2 COVID-19 MODERNA 12+ YRS VACCINE 2020-10-25 00:00:00 Completed [facility] TDAP 2020-10-25 00:00:00 Completed [facility] SARS-COV-2 COVID-19 MODERNA 12+ YRS VACCINE 2020-09-24 00:00:00 Completed [facility] TDAP 2020-09-24 00:00:00 Completed [facility] SARS-COV-2 COVID-19 MODERNA 12+ YRS VACCINE 2020-09-20 00:00:00 Completed [facility] SARS-COV-2 COVID-19 MODERNA 12+ YRS VACCINE 2020-09-20 00:00:00 Completed [facility] SARS-COV-2 COVID-19 MODERNA 12+ YRS VACCINE 2020-09-20 00:00:00 Completed [facility] SARS-COV-2 COVID-19 MODERNA 12+ YRS VACCINE 2020-09-20 00:00:00 Completed [facility] SARS-COV-2 COVID-19 MODERNA 12+ YRS VACCINE 2020-09-20 00:00:00 Completed [facility] SARS-COV-2 COVID-19 MODERNA 12+ YRS VACCINE 2020-09-20 00:00:00 Completed [facility] SARS-COV-2 COVID-19 MODERNA 12+ YRS VACCINE 2020-09-20 00:00:00 Completed [facility] SARS-COV-2 COVID-19 MODERNA 12+ YRS VACCINE 2020-09-20 00:00:00 Completed [facility] SARS-COV-2 COVID-19 MODERNA 12+ YRS VACCINE 2020-09-20 00:00:00 Completed [facility] SARS-COV-2 COVID-19 MODERNA 12+ YRS VACCINE 2020-09-20 00:00:00 Completed [facility] SARS-COV-2 COVID-19 MODERNA 12+ YRS VACCINE 2020-09-20 00:00:00 Completed [facility] SARS-COV-2 COVID-19 MODERNA 12+ YRS VACCINE 2020-09-20 00:00:00 Completed [facility] SARS-COV-2 COVID-19 MODERNA 12+ YRS VACCINE 2020-09-20 00:00:00 Completed [facility] SARS-COV-2 COVID-19 MODERNA 12+ YRS VACCINE 2020-09-20 00:00:00 Completed [facility] SARS-COV-2 COVID-19 MODERNA 12+ YRS VACCINE 2020-09-20 00:00:00 Completed [facility] SARS-COV-2 COVID-19 MODERNA 12+ YRS VACCINE 2020-09-20 00:00:00 Completed [facility] SARS-COV-2 COVID-19 MODERNA 12+ YRS VACCINE 2020-09-20 00:00:00 Completed [facility] SARS-COV-2 COVID-19 MODERNA 12+ YRS VACCINE 2020-09-20 00:00:00 Completed [facility] SARS-COV-2 COVID-19 MODERNA 12+ YRS VACCINE 2020-09-20 00:00:00 Completed [facility] SARS-COV-2 COVID-19 MODERNA 12+ YRS VACCINE 2020-09-20 00:00:00 Completed [facility] SARS-COV-2 COVID-19 MODERNA 12+ YRS VACCINE 2020-09-20 00:00:00 Completed [facility] SARS-COV-2 COVID-19 MODERNA 12+ YRS VACCINE 2020-09-20 00:00:00 Completed [facility] SARS-COV-2 COVID-19 MODERNA 12+ YRS VACCINE 2020-09-20 00:00:00 Completed [facility] SARS-COV-2 COVID-19 MODERNA 12+ YRS VACCINE 2020-09-20 00:00:00 Completed [facility] SARS-COV-2 COVID-19 MODERNA 12+ YRS VACCINE 2020-09-20 00:00:00 Completed [facility] SARS-COV-2 COVID-19 MODERNA 12+ YRS VACCINE 2020-09-20 00:00:00 Completed [facility] SARS-COV-2 COVID-19 MODERNA 12+ YRS VACCINE 2020-09-20 00:00:00 Completed [facility] SARS-COV-2 COVID-19 MODERNA 12+ YRS VACCINE 2020-09-20 00:00:00 Completed [facility] SARS-COV-2 COVID-19 MODERNA 12+ YRS VACCINE 2020-09-20 00:00:00 Completed [facility] SARS-COV-2 COVID-19 MODERNA 12+ YRS VACCINE 2020-09-20 00:00:00 Completed [facility] SARS-COV-2 COVID-19 MODERNA 12+ YRS VACCINE 2020-09-20 00:00:00 Completed [facility] SARS-COV-2 COVID-19 MODERNA 12+ YRS VACCINE 2020-09-20 00:00:00 Completed [facility] SARS-COV-2 COVID-19 MODERNA 12+ YRS VACCINE 2020-09-20 00:00:00 Completed [facility] SARS-COV-2 COVID-19 MODERNA 12+ YRS VACCINE 2020-09-20 00:00:00 Completed [facility] SARS-COV-2 COVID-19 MODERNA 12+ YRS VACCINE 2020-09-20 00:00:00 Completed [facility] SARS-COV-2 COVID-19 MODERNA 12+ YRS VACCINE 2020-09-20 00:00:00 Completed [facility] SARS-COV-2 COVID-19 MODERNA 12+ YRS VACCINE 2020-09-20 00:00:00 Completed [facility] SARS-COV-2 COVID-19 MODERNA 12+ YRS VACCINE 2020-09-20 00:00:00 Completed [facility] SARS-COV-2 COVID-19 MODERNA 12+ YRS VACCINE 2020-09-20 00:00:00 Completed [facility] SARS-COV-2 COVID-19 MODERNA 12+ YRS VACCINE 2020-09-20 00:00:00 Completed [facility] SARS-COV-2 COVID-19 MODERNA 12+ YRS VACCINE 2020-09-20 00:00:00 Completed [facility] SARS-COV-2 COVID-19 MODERNA 12+ YRS VACCINE 2020-09-20 00:00:00 Completed [facility] SARS-COV-2 COVID-19 MODERNA 12+ YRS VACCINE 2020-09-20 00:00:00 Completed [facility] SARS-COV-2 COVID-19 MODERNA 12+ YRS VACCINE 2020-09-20 00:00:00 Completed [facility] SARS-COV-2 COVID-19 MODERNA 12+ YRS VACCINE 2020-09-20 00:00:00 Completed [facility] SARS-COV-2 COVID-19 MODERNA 12+ YRS VACCINE 2020-09-20 00:00:00 Completed [facility] SARS-COV-2 COVID-19 MODERNA 12+ YRS VACCINE 2020-09-20 00:00:00 Completed [facility] SARS-COV-2 COVID-19 MODERNA 12+ YRS VACCINE 2020-09-20 00:00:00 Completed [facility] SARS-COV-2 COVID-19 MODERNA 12+ YRS VACCINE 2020-09-20 00:00:00 Completed [facility] SARS-COV-2 COVID-19 MODERNA 12+ YRS VACCINE 2020-09-20 00:00:00 Completed [facility] SARS-COV-2 COVID-19 MODERNA 12+ YRS VACCINE 2020-09-20 00:00:00 Completed [facility] SARS-COV-2 COVID-19 MODERNA 12+ YRS VACCINE 2020-09-20 00:00:00 Completed [facility] SARS-COV-2 COVID-19 MODERNA 12+ YRS VACCINE 2020-09-20 00:00:00 Completed [facility] SARS-COV-2 COVID-19 MODERNA 12+ YRS VACCINE 2020-09-20 00:00:00 Completed [facility] SARS-COV-2 COVID-19 MODERNA 12+ YRS VACCINE 2020-09-20 00:00:00 Completed [facility] SARS-COV-2 COVID-19 MODERNA 12+ YRS VACCINE 2020-09-20 00:00:00 Completed [facility] SARS-COV-2 COVID-19 MODERNA 12+ YRS VACCINE 2020-09-20 00:00:00 Completed [facility] SARS-COV-2 COVID-19 MODERNA 12+ YRS VACCINE 2020-09-20 00:00:00 Completed [facility] SARS-COV-2 COVID-19 MODERNA 12+ YRS VACCINE 2020-09-20 00:00:00 Completed [facility] SARS-COV-2 COVID-19 MODERNA 12+ YRS VACCINE 2020-09-20 00:00:00 Completed [facility] SARS-COV-2 COVID-19 MODERNA 12+ YRS VACCINE 2020-09-20 00:00:00 Completed [facility] SARS-COV-2 COVID-19 MODERNA 12+ YRS VACCINE 2020-09-20 00:00:00 Completed [facility] SARS-COV-2 COVID-19 MODERNA 12+ YRS VACCINE 2020-09-20 00:00:00 Completed [facility] SARS-COV-2 COVID-19 MODERNA 12+ YRS VACCINE 2020-09-20 00:00:00 Completed [facility] SARS-COV-2 COVID-19 MODERNA 12+ YRS VACCINE 2020-09-20 00:00:00 Completed [facility] SARS-COV-2 COVID-19 MODERNA 12+ YRS VACCINE 2020-09-20 00:00:00 Completed [facility] SARS-COV-2 COVID-19 MODERNA 12+ YRS VACCINE 2020-09-20 00:00:00 Completed [facility] SARS-COV-2 COVID-19 MODERNA 12+ YRS VACCINE 2020-09-20 00:00:00 Completed [facility] SARS-COV-2 COVID-19 MODERNA 12+ YRS VACCINE 2020-09-20 00:00:00 Completed [facility] SARS-COV-2 COVID-19 MODERNA 12+ YRS VACCINE 2020-09-20 00:00:00 Completed [facility] SARS-COV-2 COVID-19 MODERNA 12+ YRS VACCINE 2020-09-20 00:00:00 Completed [facility] SARS-COV-2 COVID-19 MODERNA 12+ YRS VACCINE 2020-09-20 00:00:00 Completed [facility] SARS-COV-2 COVID-19 MODERNA 12+ YRS VACCINE 2020-09-20 00:00:00 Completed [facility] SARS-COV-2 COVID-19 MODERNA 12+ YRS VACCINE 2020-09-20 00:00:00 Completed [facility] SARS-COV-2 COVID-19 MODERNA 12+ YRS VACCINE 2020-09-20 00:00:00 Completed [facility] SARS-COV-2 COVID-19 MODERNA 12+ YRS VACCINE 2020-09-20 00:00:00 Completed [facility] SARS-COV-2 COVID-19 MODERNA 12+ YRS VACCINE 2020-09-20 00:00:00 Completed [facility] SARS-COV-2 COVID-19 MODERNA 12+ YRS VACCINE 2020-09-20 00:00:00 Completed [facility] SARS-COV-2 COVID-19 MODERNA 12+ YRS VACCINE 2020-09-20 00:00:00 Completed [facility] SARS-COV-2 COVID-19 MODERNA 12+ YRS VACCINE 2020-09-20 00:00:00 Completed [facility] SARS-COV-2 COVID-19 MODERNA 12+ YRS VACCINE 2020-09-20 00:00:00 Completed [facility] SARS-COV-2 COVID-19 MODERNA 12+ YRS VACCINE 2020-09-20 00:00:00 Completed [facility] SARS-COV-2 COVID-19 MODERNA 12+ YRS VACCINE 2020-09-20 00:00:00 Completed [facility] SARS-COV-2 COVID-19 MODERNA 12+ YRS VACCINE 2020-09-20 00:00:00 Completed [facility] SARS-COV-2 COVID-19 MODERNA 12+ YRS VACCINE 2020-09-20 00:00:00 Completed [facility] SARS-COV-2 COVID-19 MODERNA 12+ YRS VACCINE 2020-09-20 00:00:00 Completed [facility] SARS-COV-2 COVID-19 MODERNA 12+ YRS VACCINE 2020-09-20 00:00:00 Completed [facility] SARS-COV-2 COVID-19 MODERNA 12+ YRS VACCINE 2020-09-20 00:00:00 Completed [facility] SARS-COV-2 COVID-19 MODERNA 12+ YRS VACCINE 2020-09-20 00:00:00 Completed [facility] SARS-COV-2 COVID-19 MODERNA 12+ YRS VACCINE 2020-08-23 00:00:00 Completed [facility] SARS-COV-2 COVID-19 MODERNA 12+ YRS VACCINE 2020-08-23 00:00:00 Completed [facility] SARS-COV-2 COVID-19 MODERNA 12+ YRS VACCINE 2020-08-23 00:00:00 Completed [facility] SARS-COV-2 COVID-19 MODERNA 12+ YRS VACCINE 2020-08-23 00:00:00 Completed [facility] SARS-COV-2 COVID-19 MODERNA 12+ YRS VACCINE 2020-08-23 00:00:00 Completed [facility] SARS-COV-2 COVID-19 MODERNA 12+ YRS VACCINE 2020-08-23 00:00:00 Completed [facility] SARS-COV-2 COVID-19 MODERNA 12+ YRS VACCINE 2020-08-23 00:00:00 Completed [facility] SARS-COV-2 COVID-19 MODERNA 12+ YRS VACCINE 2020-08-23 00:00:00 Completed [facility] SARS-COV-2 COVID-19 MODERNA 12+ YRS VACCINE 2020-08-23 00:00:00 Completed [facility] SARS-COV-2 COVID-19 MODERNA 12+ YRS VACCINE 2020-08-23 00:00:00 Completed [facility] SARS-COV-2 COVID-19 MODERNA 12+ YRS VACCINE 2020-08-23 00:00:00 Completed [facility] SARS-COV-2 COVID-19 MODERNA 12+ YRS VACCINE 2020-08-23 00:00:00 Completed [facility] SARS-COV-2 COVID-19 MODERNA 12+ YRS VACCINE 2020-08-23 00:00:00 Completed [facility] SARS-COV-2 COVID-19 MODERNA 12+ YRS VACCINE 2020-08-23 00:00:00 Completed [facility] SARS-COV-2 COVID-19 MODERNA 12+ YRS VACCINE 2020-08-23 00:00:00 Completed [facility] SARS-COV-2 COVID-19 MODERNA 12+ YRS VACCINE 2020-08-23 00:00:00 Completed [facility] SARS-COV-2 COVID-19 MODERNA 12+ YRS VACCINE 2020-08-23 00:00:00 Completed [facility] SARS-COV-2 COVID-19 MODERNA 12+ YRS VACCINE 2020-08-23 00:00:00 Completed [facility] SARS-COV-2 COVID-19 MODERNA 12+ YRS VACCINE 2020-08-23 00:00:00 Completed [facility] SARS-COV-2 COVID-19 MODERNA 12+ YRS VACCINE 2020-08-23 00:00:00 Completed [facility] SARS-COV-2 COVID-19 MODERNA 12+ YRS VACCINE 2020-08-23 00:00:00 Completed [facility] SARS-COV-2 COVID-19 MODERNA 12+ YRS VACCINE 2020-08-23 00:00:00 Completed [facility] SARS-COV-2 COVID-19 MODERNA 12+ YRS VACCINE 2020-08-23 00:00:00 Completed [facility] SARS-COV-2 COVID-19 MODERNA 12+ YRS VACCINE 2020-08-23 00:00:00 Completed [facility] SARS-COV-2 COVID-19 MODERNA 12+ YRS VACCINE 2020-08-23 00:00:00 Completed [facility] SARS-COV-2 COVID-19 MODERNA 12+ YRS VACCINE 2020-08-23 00:00:00 Completed [facility] SARS-COV-2 COVID-19 MODERNA 12+ YRS VACCINE 2020-08-23 00:00:00 Completed [facility] SARS-COV-2 COVID-19 MODERNA 12+ YRS VACCINE 2020-08-23 00:00:00 Completed [facility] SARS-COV-2 COVID-19 MODERNA 12+ YRS VACCINE 2020-08-23 00:00:00 Completed [facility] SARS-COV-2 COVID-19 MODERNA 12+ YRS VACCINE 2020-08-23 00:00:00 Completed [facility] SARS-COV-2 COVID-19 MODERNA 12+ YRS VACCINE 2020-08-23 00:00:00 Completed [facility] SARS-COV-2 COVID-19 MODERNA 12+ YRS VACCINE 2020-08-23 00:00:00 Completed [facility] SARS-COV-2 COVID-19 MODERNA 12+ YRS VACCINE 2020-08-23 00:00:00 Completed [facility] SARS-COV-2 COVID-19 MODERNA 12+ YRS VACCINE 2020-08-23 00:00:00 Completed [facility] SARS-COV-2 COVID-19 MODERNA 12+ YRS VACCINE 2020-08-23 00:00:00 Completed [facility] SARS-COV-2 COVID-19 MODERNA 12+ YRS VACCINE 2020-08-23 00:00:00 Completed [facility] SARS-COV-2 COVID-19 MODERNA 12+ YRS VACCINE 2020-08-23 00:00:00 Completed [facility] SARS-COV-2 COVID-19 MODERNA 12+ YRS VACCINE 2020-08-23 00:00:00 Completed [facility] SARS-COV-2 COVID-19 MODERNA 12+ YRS VACCINE 2020-08-23 00:00:00 Completed [facility] SARS-COV-2 COVID-19 MODERNA 12+ YRS VACCINE 2020-08-23 00:00:00 Completed [facility] SARS-COV-2 COVID-19 MODERNA 12+ YRS VACCINE 2020-08-23 00:00:00 Completed [facility] SARS-COV-2 COVID-19 MODERNA 12+ YRS VACCINE 2020-08-23 00:00:00 Completed [facility] SARS-COV-2 COVID-19 MODERNA 12+ YRS VACCINE 2020-08-23 00:00:00 Completed [facility] SARS-COV-2 COVID-19 MODERNA 12+ YRS VACCINE 2020-08-23 00:00:00 Completed [facility] SARS-COV-2 COVID-19 MODERNA 12+ YRS VACCINE 2020-08-23 00:00:00 Completed [facility] SARS-COV-2 COVID-19 MODERNA 12+ YRS VACCINE 2020-08-23 00:00:00 Completed [facility] SARS-COV-2 COVID-19 MODERNA 12+ YRS VACCINE 2020-08-23 00:00:00 Completed [facility] SARS-COV-2 COVID-19 MODERNA 12+ YRS VACCINE 2020-08-23 00:00:00 Completed [facility] SARS-COV-2 COVID-19 MODERNA 12+ YRS VACCINE 2020-08-23 00:00:00 Completed [facility] SARS-COV-2 COVID-19 MODERNA 12+ YRS VACCINE 2020-08-23 00:00:00 Completed [facility] SARS-COV-2 COVID-19 MODERNA 12+ YRS VACCINE 2020-08-23 00:00:00 Completed [facility] SARS-COV-2 COVID-19 MODERNA 12+ YRS VACCINE 2020-08-23 00:00:00 Completed [facility] SARS-COV-2 COVID-19 MODERNA 12+ YRS VACCINE 2020-08-23 00:00:00 Completed [facility] SARS-COV-2 COVID-19 MODERNA 12+ YRS VACCINE 2020-08-23 00:00:00 Completed [facility] SARS-COV-2 COVID-19 MODERNA 12+ YRS VACCINE 2020-08-23 00:00:00 Completed [facility] SARS-COV-2 COVID-19 MODERNA 12+ YRS VACCINE 2020-08-23 00:00:00 Completed [facility] SARS-COV-2 COVID-19 MODERNA 12+ YRS VACCINE 2020-08-23 00:00:00 Completed [facility] SARS-COV-2 COVID-19 MODERNA 12+ YRS VACCINE 2020-08-23 00:00:00 Completed [facility] SARS-COV-2 COVID-19 MODERNA 12+ YRS VACCINE 2020-08-23 00:00:00 Completed [facility] SARS-COV-2 COVID-19 MODERNA 12+ YRS VACCINE 2020-08-23 00:00:00 Completed [facility] SARS-COV-2 COVID-19 MODERNA 12+ YRS VACCINE 2020-08-23 00:00:00 Completed [facility] SARS-COV-2 COVID-19 MODERNA 12+ YRS VACCINE 2020-08-23 00:00:00 Completed [facility] SARS-COV-2 COVID-19 MODERNA 12+ YRS VACCINE 2020-08-23 00:00:00 Completed [facility] SARS-COV-2 COVID-19 MODERNA 12+ YRS VACCINE 2020-08-23 00:00:00 Completed [facility] SARS-COV-2 COVID-19 MODERNA 12+ YRS VACCINE 2020-08-23 00:00:00 Completed [facility] SARS-COV-2 COVID-19 MODERNA 12+ YRS VACCINE 2020-08-23 00:00:00 Completed [facility] SARS-COV-2 COVID-19 MODERNA 12+ YRS VACCINE 2020-08-23 00:00:00 Completed [facility] SARS-COV-2 COVID-19 MODERNA 12+ YRS VACCINE 2020-08-23 00:00:00 Completed [facility] SARS-COV-2 COVID-19 MODERNA 12+ YRS VACCINE 2020-08-23 00:00:00 Completed [facility] SARS-COV-2 COVID-19 MODERNA 12+ YRS VACCINE 2020-08-23 00:00:00 Completed [facility] SARS-COV-2 COVID-19 MODERNA 12+ YRS VACCINE 2020-08-23 00:00:00 Completed [facility] SARS-COV-2 COVID-19 MODERNA 12+ YRS VACCINE 2020-08-23 00:00:00 Completed [facility] SARS-COV-2 COVID-19 MODERNA 12+ YRS VACCINE 2020-08-23 00:00:00 Completed [facility] SARS-COV-2 COVID-19 MODERNA 12+ YRS VACCINE 2020-08-23 00:00:00 Completed [facility] SARS-COV-2 COVID-19 MODERNA 12+ YRS VACCINE 2020-08-23 00:00:00 Completed [facility] SARS-COV-2 COVID-19 MODERNA 12+ YRS VACCINE 2020-08-23 00:00:00 Completed [facility] SARS-COV-2 COVID-19 MODERNA 12+ YRS VACCINE 2020-08-23 00:00:00 Completed [facility] SARS-COV-2 COVID-19 MODERNA 12+ YRS VACCINE 2020-08-23 00:00:00 Completed [facility] SARS-COV-2 COVID-19 MODERNA 12+ YRS VACCINE 2020-08-23 00:00:00 Completed [facility] SARS-COV-2 COVID-19 MODERNA 12+ YRS VACCINE 2020-08-23 00:00:00 Completed [facility] SARS-COV-2 COVID-19 MODERNA 12+ YRS VACCINE 2020-08-23 00:00:00 Completed [facility] SARS-COV-2 COVID-19 MODERNA 12+ YRS VACCINE 2020-08-23 00:00:00 Completed [facility] SARS-COV-2 COVID-19 MODERNA 12+ YRS VACCINE 2020-08-23 00:00:00 Completed [facility] SARS-COV-2 COVID-19 MODERNA 12+ YRS VACCINE 2020-08-23 00:00:00 Completed [facility] SARS-COV-2 COVID-19 MODERNA 12+ YRS VACCINE 2020-08-23 00:00:00 Completed [facility] SARS-COV-2 COVID-19 MODERNA 12+ YRS VACCINE 2020-08-23 00:00:00 Completed [facility] SARS-COV-2 COVID-19 MODERNA 12+ YRS VACCINE 2020-08-23 00:00:00 Completed [facility] SARS-COV-2 COVID-19 MODERNA 12+ YRS VACCINE 2020-08-23 00:00:00 Completed [facility] SARS-COV-2 COVID-19 MODERNA 12+ YRS VACCINE 2020-08-23 00:00:00 Completed [facility] TDAP 2020-02-16 00:00:00 Completed [facility]AP 2020-01-26 00:00:00 Completed [facility] 2010-10-09 00:00:00 Completed [facility]AP 2010-10-09 00:00:00 Completed [facility] 2010-10-09 00:00:00 Completed [facility]AP 2010-10-09 00:00:00 Completed [facility] 2010-10-09 00:00:00 [facility] [facility] 2010-10-09 00:00:00 Completed [facility] TD[facility] 2010-10-09 00:00:00 Completed [facility] TD[facility] 2010-10-09 00:00:00 Completed [facility] TDAP 2010-10-09 00:00:00 Completed [facility] TDAP 2010-10-09 00:00:00 Completed [facility] TDAP 2010-10-09 00:00:00 Completed [facility] TDAP 2010-10-09 00:00:00 Completed [facility] TDAP 2010-10-09 00:00:00 Completed [facility] TDAP 2010-10-09 00:00:00 Completed [facility] TDAP 2010-10-09 00:00:00 Completed [facility] TDAP 2010-10-09 00:00:00 Completed [facility] TDAP 2010-10-09 00:00:00 Completed [facility] TDAP 2010-10-09 00:00:00 Completed [facility] TDAP 2010-10-09 00:00:00 Completed [facility] TDAP 2010-10-09 00:00:00 Completed [facility] TDAP 2010-10-09 00:00:00 Completed [facility] TDAP 2010-10-09 00:00:00 Completed [facility] TDAP 2010-10-09 00:00:00 Completed [facility] TDAP 2010-10-09 00:00:00 Completed [facility] TDAP 2010-10-09 00:00:00 Completed [facility] TDAP 2010-10-09 00:00:00 Completed [facility] TDAP 2010-10-09 00:00:00 Completed [facility] TDAP 2010-10-09 00:00:00 Completed [facility] TDAP 2010-10-09 00:00:00 Completed [facility] TDAP 2010-10-09 00:00:00 Completed [facility] TDAP 2010-10-09 00:00:00 Completed [facility] TDAP 2010-10-09 00:00:00 Completed [facility] TDAP 2010-10-09 00:00:00 Completed [facility] TDAP 2010-10-09 00:00:00 Completed [facility] TDAP 2010-10-09 00:00:00 Completed [facility] TDAP 2010-10-09 00:00:00 Completed [facility] TDAP 2010-10-09 00:00:00 Completed [facility] TDAP 2010-10-09 00:00:00 Completed [facility] TDAP 2010-10-09 00:00:00 Completed [facility] TDAP 2010-10-09 00:00:00 Completed [facility] TDAP 2010-10-09 00:00:00 Completed [facility] TDAP 2010-10-09 00:00:00 Completed [facility] TDAP 2010-10-09 00:00:00 Completed [facility] TDAP 2010-10-09 00:00:00 Completed [facility] TDAP 2010-10-09 00:00:00 Completed [facility] TDAP 2010-10-09 00:00:00 Completed [facility] TDAP 2010-10-09 00:00:00 Completed [facility] TDAP 2010-10-09 00:00:00 Completed [facility] TDAP 2010-10-09 00:00:00 Completed [facility] TDAP 2010-10-09 00:00:00 Completed [facility] TDAP 2010-10-09 00:00:00 Completed [facility] TDAP 2010-10-09 00:00:00 Completed [facility] TDAP 2010-10-09 00:00:00 Completed [facility] TDAP 2010-10-09 00:00:00 Completed [facility] TDAP 2010-10-09 00:00:00 Completed [facility] TDAP 2010-10-09 00:00:00 Completed [facility] TDAP 2010-10-09 00:00:00 Completed [facility] TDAP 2010-10-09 00:00:00 Completed [facility] TDAP 2010-10-09 00:00:00 Completed [facility] TDAP 2010-10-09 00:00:00 Completed [facility] TDAP 2010-10-09 00:00:00 Completed [facility] TDAP 2010-10-09 00:00:00 Completed [facility] TDAP 2010-10-09 00:00:00 Completed [facility] TDAP 2010-10-09 00:00:00 Completed [facility] TDAP 2010-10-09 00:00:00 Completed [facility] TDAP 2010-10-09 00:00:00 Completed [facility] TDAP 2010-10-09 00:00:00 Completed [facility] TDAP 2010-10-09 00:00:00 Completed [facility] TDAP 2010-10-09 00:00:00 Completed [facility] TDAP 2010-10-09 00:00:00 Completed [facility] TD[facility] 2010-10-09 00:00:00 Completed [facility] TDAP 2010-10-09 00:00:00 Completed [facility] TDAP 2010-10-09 00:00:00 Completed [facility] TDAP 2010-10-09 00:00:00 Completed [facility] TDAP 2010-10-09 00:00:00 Completed [facility] TDAP 2010-10-09 00:00:00 Completed [facility] TDAP 2010-10-09 00:00:00 Completed [facility] TDAP 2010-10-09 00:00:00 Completed [facility] TDAP 2010-10-09 00:00:00 Completed [facility] TDAP 2010-10-09 00:00:00 Completed [facility] TDAP 2010-10-09 00:00:00 Completed [facility] TDAP 2010-10-09 00:00:00 Completed [facility] TDAP 2010-10-09 00:00:00 Completed [facility] TDAP 2010-10-09 00:00:00 Completed [facility] TDAP 2010-10-09 00:00:00 Completed [facility] TDAP 2010-10-09 00:00:00 Completed [facility] TDAP 2010-10-09 00:00:00 Completed [facility] TDAP 2010-10-09 00:00:00 Completed [facility] TDAP 2010-10-09 00:00:00 Completed [facility] Vital Signs Vital Name Observation Time Observation Value Comments S nisreen Systolic blood pressure 2024-09-30 14:59:00 152 mm[Hg] [facility] Diastolic blood pressure 2024-09-30 14:59:00 81 mm[Hg] [facility] Heart rate 2024-09-30 14:51:00 62 /min [facility] Body height 2024-09-30 14:51:00 190.5 cm [facility] Body weight 2024-09-30 14:51:00 195.818 kg [facility] BMI 2024-09-30 14:51:00 53.96 kg/m2 [facility] Oxygen saturation in Arterial blood by Pulse oximetry 2024-09-30 14:51:00 99 /min [facility] Systolic blood pressure 2024-07-01 16:12:00 140 mm[Hg] [facility] Diastolic blood pressure 2024-07-01 16:12:00 75 mm[Hg] [facility] Heart rate 2024-07-01 16:12:00 73 /min [facility] Body height 2024-07-01 16:12:00 182.9 cm [facility] Body weight 2024-07-01 16:12:00 181.439 kg [facility] BMI 2024-07-01 16:12:00 54.25 kg/m2 [facility] Oxygen saturation in Arterial blood by Pulse oximetry 2024-07-01 16:12:00 97 /min [facility] Body temperature 2024-06-07 15:16:00 36.67 Camille [facility] Body height 2024-06-07 15:16:00 185.4 cm [facility] Body weight 2024-06-07 15:16:00 181.439 kg [facility] BMI 2024-06-07 15:16:00 52.77 kg/m2 [facility] Systolic blood pressure 2024-05-16 19:05:00 122 mm[Hg] [facility] Diastolic blood pressure 2024-05-16 19:05:00 78 mm[Hg] [facility] Heart rate 2024-05-16 19:05:00 80 /min [facility] Body height 2024-05-16 19:05:00 185.4 cm [facility] Body weight 2024-05-16 19:05:00 179.171 kg [facility] BMI 2024-05-16 19:05:00 52.11 kg/m2 [facility] Oxygen saturation in Arterial blood by Pulse oximetry 2024-05-16 19:05:00 98 /min [facility] Systolic blood pressure 2024-05-10 19:03:00 150 mm[Hg] [facility] Diastolic blood pressure 2024-05-10 19:03:00 77 mm[Hg] [facility] Heart rate 2024-05-10 19:03:00 95 /min [facility] Body temperature 2024-05-10 19:03:00 36.78 Cam[place] [facility] Respiratory rate 2024-05-10 19:03:00 16 /min [facility] Body height 2024-05-10 19:03:00 188 cm [facility] Body weight 2024-05-10 19:03:00 181.439 kg [facility] BMI 2024-05-10 19:03:00 51.36 kg/m2 [facility] Oxygen saturation in Arterial blood by Pulse oximetry 2024-05-10 19:03:00 99 /min [facility] Systolic blood pressure 2024-04-21 19:57:00 141 mm[Hg] [facility] Diastolic blood pressure 2024-04-21 19:57:00 74 mm[Hg] [facility] Heart rate 2024-04-21 19:57:00 103 /min [facility] Body temperature 2024-04-21 19:57:00 36.89 Cam[place] [facility] Respiratory rate 2024-04-21 19:57:00 20 /min [facility] Body weight 2024-04-21 19:57:00 190.511 kg [facility] BMI 2024-04-21 19:57:00 56.96 kg/m2 [facility] Oxygen saturation in Arterial blood by Pulse oximetry 2024-04-21 19:57:00 94 /min [facility] Systolic blood pressure 2024-04-19 15:31:00 141 mm[Hg] [facility] Diastolic blood pressure 2024-04-19 15:31:00 61 mm[Hg] [facility] Heart rate 2024-04-19 15:21:00 78 /min [facility] Body temperature 2024-04-19 15:21:00 36.61 Camille [facility] Respiratory rate 2024-04-19 15:21:00 18 /min [facility] Body height 2024-04-19 15:21:00 182.9 cm [facility] Body weight 2024-04-19 15:21:00 198.857 kg [facility] BMI 2024-04-19 15:21:00 59.46 kg/m2 [facility] Oxygen saturation in Arterial blood by Pulse oximetry 2024-04-19 15:21:00 97 /min [facility] Systolic blood pressure 2024-04-01 14:26:00 169 mm[Hg] [facility] Diastolic blood pressure 2024-04-01 14:26:00 77 mm[Hg] [facility] Heart rate 2024-04-01 14:25:00 76 /min [facility] Body temperature 2024-04-01 14:25:00 36.72 Cam[place] [facility] Respiratory rate 2024-04-01 14:25:00 18 /min [facility] Body height 2024-04-01 14:25:00 190.5 cm [facility] Body weight 2024-04-01 14:25:00 204.119 kg [facility] BMI 2024-04-01 14:25:00 56.25 kg/m2 [facility] Oxygen saturation in Arterial blood by Pulse oximetry 2024-04-01 14:25:00 96 /min [facility] Systolic blood pressure 2024-03-28 16:31:00 154 mm[Hg] [facility] Diastolic blood pressure 2024-03-28 16:31:00 75 mm[Hg] [facility] Heart rate 2024-03-28 15:58:00 66 /min [facility] Respiratory rate 2024-03-28 15:58:00 16 /min [facility] Body height 2024-03-28 15:58:00 193 cm [facility] Body weight 2024-03-28 15:58:00 206.84 kg [facility] BMI 2024-03-28 15:58:00 55.51 kg/m2 [facility] Oxygen saturation in Arterial blood by Pulse oximetry 2024-03-28 15:58:00 97 /min [facility] Heart rate 2024-02-11 03:01:00 100 /min [facility] Respiratory rate 2024-02-11 03:01:00 21 /min [facility] Oxygen saturation in Arterial blood by Pulse oximetry 2024-02-11 03:01:00 100 /min [facility] Systolic blood pressure 2024-02-11 02:29:00 169 mm[Hg] [facility] Diastolic blood pressure 2024-02-11 02:29:00 85 mm[Hg] [facility] Body temperature 2024-02-11 02:29:00 38.22 Camille [facility] Body height 2024-02-11 02:29:00 193 cm [facility] Body weight 2024-02-11 02:29:00 192.983 kg [facility] BMI 2024-02-11 02:29:00 51.79 kg/m2 [facility] Systolic blood pressure 2023-12-31 21:22:00 162 mm[Hg] [facility] Diastolic blood pressure 2023-12-31 21:22:00 87 mm[Hg] [facility] Heart rate 2023-12-31 21:21:00 80 /min [facility] Body temperature 2023-12-31 21:21:00 36.61 [place] [facility] Respiratory rate 2023-12-31 21:21:00 17 /min [facility] Body weight 2023-12-31 21:21:00 181.439 [facility] 2023-12-31 21:21:00 48.69 kg/m2 [facility] Oxygen saturation in Arterial blood by Pulse oximetry 2023-12-31 21:21:00 98 /min [facility] Systolic blood pressure 2023-09-29 15:41:00 140 mm[Hg] [facility] Diastolic blood pressure 2023-09-29 15:41:00 69 mm[Hg] [facility] Heart rate 2023-09-29 15:41:00 64 /min [facility] Body height 2023-09-29 15:41:00 193 cm [facility] Body weight 2023-09-29 15:41:00 181.439 kg [facility] BMI 2023-09-29 15:41:00 48.69 kg/m2 [facility] Oxygen saturation in Arterial blood by Pulse oximetry 2023-09-29 15:41:00 98 /min [facility] Body height 2023-08-11 16:17:00 193 cm [facility] Body weight 2023-08-11 16:17:00 181.439 kg [facility] BMI 2023-08-11 16:17:00 48.69 kg/m2 [facility] Systolic blood pressure 2023-08-02 13:54:00 169 mm[Hg] [facility] Diastolic blood pressure 2023-08-02 13:54:00 99 mm[Hg] [facility] Heart rate 2023-08-02 13:54:00 66 /min [facility] Body temperature 2023-08-02 13:54:00 36.11 Cam[place] [facility] Respiratory rate 2023-08-02 13:54:00 17 /min [facility] Oxygen saturation in Arterial blood by Pulse oximetry 2023-08-02 13:54:00 98 /min [facility] Body weight 2023-08-02 09:37:00 201.488 kg [facility] BMI 2023-08-02 09:37:00 55.52 kg/m2 [facility] Body height 2023-08-01 08:40:00 190.5 cm [facility] Systolic blood pressure 2023-03-10 15:04:00 139 mm[Hg] [facility] Diastolic blood pressure 2023-03-10 15:04:00 73 mm[Hg] [facility] Heart rate 2023-03-10 15:04:00 58 /min [facility] Body height 2023-03-10 15:04:00 190.5 cm [facility] Body weight 2023-03-10 15:04:00 189.15 kg [facility] BMI 2023-03-10 15:04:00 52.12 kg/m2 [facility] Oxygen saturation in Arterial blood by Pulse oximetry 2023-03-10 15:04:00 97 /min [facility] Systolic blood pressure 2023-02-23 20:02:00 173 mm[Hg] [facility] Diastolic blood pressure 2023-02-23 20:02:00 76 mm[Hg] [facility] Heart rate 2023-02-23 20:01:00 62 /min [facility] Body height 2023-02-23 20:01:00 190.5 cm [facility] Body weight 2023-02-23 20:01:00 189.558 kg [facility] BMI 2023-02-23 20:01:00 52.23 kg/m2 [facility] Oxygen saturation in Arterial blood by Pulse oximetry 2023-02-23 20:01:00 99 /min [facility] Systolic blood pressure 2022-12-12 04:30:00 172 mm[Hg] [facility] Diastolic blood pressure 2022-12-12 04:30:00 92 mm[Hg] [facility] Heart rate 2022-12-12 04:30:00 105 /min [facility] Respiratory rate 2022-12-12 04:30:00 16 /min [facility] Oxygen saturation in Arterial blood by Pulse oximetry 2022-12-12 04:30:00 99 /min [facility] Body temperature 2022-12-12 02:20:00 37.61 Cam[place] [facility] Body height 2022-12-12 02:20:00 190.5 cm [facility] Body weight 2022-12-12 02:20:00 158.759 kg [facility] BMI 2022-12-12 02:20:00 43.75 kg/m2 [facility] Systolic blood pressure 2022-09-23 14:16:00 171 mm[Hg] [facility] Diastolic blood pressure 2022-09-23 14:16:00 79 mm[Hg] [facility] Heart rate 2022-09-23 14:08:00 62 /min [facility] Body height 2022-09-23 14:08:00 193 cm [facility] Body weight 2022-09-23 14:08:00 175.497 kg [facility] BMI 2022-09-23 14:08:00 47.09 kg/m2 [facility] Oxygen saturation in Arterial blood by Pulse oximetry 2022-09-23 14:08:00 100 /min [facility] Systolic blood pressure 2022-08-31 14:45:00 182 mm[Hg] [facility] Diastolic blood pressure 2022-08-31 14:45:00 65 mm[Hg] [facility] Heart rate 2022-08-31 14:43:00 73 /min [facility] Body temperature 2022-08-31 14:43:00 36.67 Cam[place] [facility] Respiratory rate 2022-08-31 14:43:00 20 /min [facility] Body weight 2022-08-31 14:43:00 189.059 kg [facility] BMI 2022-08-31 14:43:00 50.73 kg/m2 [facility] Oxygen saturation in Arterial blood by Pulse oximetry 2022-08-31 14:43:00 100 /min [facility] Systolic blood pressure 2022-08-18 17:36:00 127 mm[Hg] [facility] Diastolic blood pressure 2022-08-18 17:36:00 84 mm[Hg] [facility] Heart rate 2022-08-18 17:36:00 87 /min [facility] Body temperature 2022-08-18 17:36:00 36.89 [place] [facility] Respiratory rate 2022-08-18 17:36:00 16 /min [facility] Body height 2022-08-18 17:36:00 193 cm [facility] Body weight 2022-08-18 17:36:00 181.439 kg [facility] BMI 2022-08-18 17:36:00 48.69 kg/m2 [facility] Oxygen saturation in Arterial blood by Pulse oximetry 2022-08-18 17:36:00 100 /min [facility] Systolic blood pressure 2022-08-03 20:32:00 166 mm[Hg] [facility] Diastolic blood pressure 2022-08-03 20:32:00 87 mm[Hg] [facility] Heart rate 2022-08-03 20:32:00 79 /min [facility] Body temperature 2022-08-03 20:32:00 36.56 Cam[place] [facility] Respiratory rate 2022-08-03 20:32:00 22 /min [facility] Oxygen saturation in Arterial blood by Pulse oximetry 2022-08-03 20:32:00 95 /min [facility] Respiratory rate 2022-06-07 20:31:00 18 /min [facility] Oxygen saturation in Arterial blood by Pulse oximetry 2022-06-07 20:31:00 99 /min [facility] Systolic blood pressure 2022-05-26 15:37:00 178 mm[Hg] [facility] Diastolic blood pressure 2022-05-26 15:37:00 91 mm[Hg] [facility] Heart rate 2022-05-26 15:37:00 73 /min [facility] Body temperature 2022-05-26 15:37:00 36.11 Cam[place] [facility] Respiratory rate 2022-05-26 15:37:00 22 /min [facility] Body weight 2022-05-26 15:37:00 188.243 kg [facility] BMI 2022-05-26 15:37:00 51.87 kg/m2 [facility] Oxygen saturation in Arterial blood by Pulse oximetry 2022-05-26 15:37:00 95 /min [facility] Systolic blood pressure 2022-05-26 14:37:00 135 mm[Hg] [facility] Diastolic blood pressure 2022-05-26 14:37:00 80 mm[Hg] [facility] Heart rate 2022-05-26 14:24:00 64 /min [facility] Body temperature 2022-05-26 14:24:00 35.56 [place] [facility] Body height 2022-05-26 14:24:00 190.5 cm [facility] Body weight 2022-05-26 14:24:00 188.923 kg [facility] BMI 2022-05-26 14:24:00 52.06 kg/m2 [facility] Oxygen saturation in Arterial blood by Pulse oximetry 2022-05-26 14:24:00 98 /min [facility] Systolic blood pressure 2022-05-04 15:09:00 158 mm[Hg] [facility] Diastolic blood pressure 2022-05-04 15:09:00 87 mm[Hg] [facility] Heart rate 2022-05-04 15:08:00 55 /min [facility] Body temperature 2022-05-04 15:08:00 37 [place] [facility] Respiratory rate 2022-05-04 15:08:00 22 /min [facility] Body weight 2022-05-04 15:08:00 186.882 kg [facility] BMI 2022-05-04 15:08:00 51.50 kg/m2 [facility] Oxygen saturation in Arterial blood by Pulse oximetry 2022-05-04 15:08:00 97 /min [facility] Systolic blood pressure 2022-04-20 13:55:00 183 mm[Hg] [facility] Diastolic blood pressure 2022-04-20 13:55:00 112 mm[Hg] [facility] Heart rate 2022-04-20 13:55:00 60 /min [facility] Body temperature 2022-04-20 13:55:00 36.39 Cam[place] [facility] Respiratory rate 2022-04-20 13:55:00 16 /min [facility] Body height 2022-04-20 13:55:00 190.5 cm [facility] Body weight 2022-04-20 13:55:00 189.059 kg [facility] BMI 2022-04-20 13:55:00 52.10 kg/m2 [facility] Oxygen saturation in Arterial blood by Pulse oximetry 2022-04-20 13:55:00 98 /min [facility] Systolic blood pressure 2022-03-16 13:59:00 150 mm[Hg] [facility] Diastolic blood pressure 2022-03-16 13:59:00 82 mm[Hg] [facility] Heart rate 2022-03-16 13:49:00 91 /min [facility] Body temperature 2022-03-16 13:49:00 36.78 Cam[place] [facility] Respiratory rate 2022-03-16 13:49:00 20 /min [facility] Body weight 2022-03-16 13:49:00 184.478 kg [facility] BMI 2022-03-16 13:49:00 50.83 kg/m2 [facility] Oxygen saturation in Arterial blood by Pulse oximetry 2022-03-16 13:49:00 98 /min [facility] Systolic blood pressure 2022-02-24 14:27:00 135 mm[Hg] [facility] Diastolic blood pressure 2022-02-24 14:27:00 80 mm[Hg] [facility] Heart rate 2022-02-24 14:27:00 76 /min [facility] Respiratory rate 2022-02-24 14:27:00 20 /min [facility] Body weight 2022-02-24 14:27:00 186.519 kg [facility] BMI 2022-02-24 14:27:00 51.40 kg/m2 [facility] Services Oxygen saturation in Arterial blood by Pulse oximetry 2022-02-24 14:27:00 96 /min [facility] Procedures Procedure Date / Time Performed Performing Clinician Source XR FOOT 3+ VW RIGHT 2024-05-10 19:50:09 Monika Silvestre [facility] FLU VACC (0917-2002), 6 MO-64 YRS, .5ML, IM, TIV (FLUCELVAX) 2024-04-01 14:49:58 Teresita Luque [facility] XR CHEST 2 VW 2024-02-11 03:16:26 [facility] RSV COVID NAAT 2024-02-11 02:55:00 Venkata Emerson [facility] PHYSICIAN ORDERS 2023-10-12 12:16:32 Doctor Unas signed, Huson [facility] REFERRAL- REQUEST/RESPONSE 2023-10-10 21:03:16 Doctor Unassigned, Huson [facility] COMP. METABOLIC PANEL (26169) 2023-09-29 16:35:00 Teresita Luque [facility] CBC WITH DIFF 2023-09-29 16:35:00 Teresita Luque [facility] DME/SUPPLY JUSTIFICATION 2023-09-29 13:54:23 Doc tor Unassigned, Huson [facility] PHYSICIAN ORDERS 2023-09-25 12:52:22 Doctor Unas signed, Huson [facility] PHYSICIAN ORDERS 2023-09-01 06:01:00 Doctor Unas signed, Huson [facility] XR ELBOW >3 VW RIGHT 2023-08-11 16:29:43 Arie Barbosa [facility] PHYSICIAN ORDERS 2023-08-11 06:01:00 Doctor Unas signed, Huson [facility] BASIC METABOLIC PANEL (NA, K, CL, CO2, GLUCOSE, BUN, CREATININE, CA) 2023-08-02 11:20:00 Va Benjamin [facility] CBC WITH DIFF 2023-08-02 11:20:00 Va Benjamin [facility] C-REACTIVE PROTEIN 2023-08-01 07:15:00 Katelyn Jensen [facility] LACTIC ACID WHOLE BLOOD 2023-08-01 07:08:00 Yehuda Jensen [facility] BLOOD CULTURE SCREEN 2023-08-01 07:05:00 Shola Jensen [facility] XR ELBOW >3 VW RIGHT 2023-08-01 05:11:34 Shola Jensen [facility] URIC ACID 2023-08-01 04:38:00 Katelyn Jensen [facility] BASIC METABOLIC PANEL (NA, K, CL, CO2, GLUCOSE, BUN, CREATININE, CA) 2023-08-01 04:38:00 Katelyn Jensen [facility] SEDIMENTATION RATE 2023-08-01 04:38:00 Katelyn Jensen [facility] CBC WITH DIFF 2023-08-01 04:38:00 Katelyn Jensen [facility] NOTICE OF PRIVACY PRACTICES 2023-08-01 04:17:09 Doctor Unassigned, Huson [facility] CONSENT/REFUSAL FOR DIAGNOSIS AND TREATMENT 2023-08-01 04:16:15 Doctor Unassigned, Huson [facility] PHYSICIAN ORDERS 2023-07-28 06:01:00 Doctor Unas signed, Huson [facility] PHYSICIAN ORDERS 2023-07-11 06:01:00 Doctor Unas signed, Huson [facility] PHYSICIAN ORDERS 2023-06-20 06:01:00 Doctor Unas signed, Huson [facility] PHYSICIAN ORDERS 2023-05-12 06:01:00 Doctor Unas signed, Huson [facility] PHYSICIAN ORDERS 2023-02-16 05:01:00 Doctor Unas signed, Huson [facility] PHYSICIAN ORDERS 2023-02-02 05:01:00 Doctor Unas signed, Huson [facility] PHYSICIAN ORDERS 2023-01-25 05:01:00 Doctor Unas signed, Huson [facility] PHYSICIAN ORDERS 2023-01-17 05:01:00 Doctor Alexandras signed, Huson [facility] PHYSICIAN ORDERS 2023-01-03 05:01:00 Doctor Alexandras signed, Huson [facility] PHYSICIAN ORDERS 2022-12-20 05:01:00 Doctor Alexandras signed, Huson [facility] XR CHEST 1 VW 2022-12-12 03:38:21 Singer [facility] URINALYSIS 2022-12-12 03:00:00 Wolfe, [facility] TROPONIN I 2022-12-12 02:53:00 Woodruff [facility] COMP. METABOLIC PANEL ([id number]) 2022-12-12 02:53:00 Singer Brad [facility] CBC WITH DIFF 2022-12-12 02:53:00 Woodruff [facility] PHYSICIAN ORDERS 2022-12-01 05:01:00 Doctor Pope signed, Huson [facility] ASSIGNMENT OF BENEFITS 2022-11-11 15:05:32 Docto r Unassigned, Huson [facility] PHYSICIAN ORDERS 2022-11-02 05:01:00 Doctor Toshia signed, Huson [facility] PHYSICIAN ORDERS 2022-10-13 05:01:00 Doctor Alexandras signed, Huson [facility] PHYSICIAN ORDERS 2022-09-27 05:01:00 Doctor Alexandras signed, Huson [facility] POCT HEMOGLOBIN A1C TEST 2022-09-23 14:18:00 Trent Bliss [facility] ASPIRATE OR ABSCESS CULTURE(AEROBIC/ANAEROBI C) 2022-08-31 15:31:00 Monisha Garcia [facility] WOUND/ASPIRATE OR ABSCESS CULTURE 2022-08-31 15:31:00 Monisha Garcia [facility] PATIENT FINANCIAL POLICY 2022-08-31 14:06:28 Doctor Unassigned, Huson [facility] COMP. METABOLIC PANEL ([id number]) 2022-08-18 19:43:00 Charanjit Rod [facility] CBC WITH DIFF 2022-08-18 19:43:00 Charanjit Rod [facility] ASSIGNMENT OF BENEFITS 2022-08-18 19:10:45 Docto r Unassigned, Huson [facility] CONSENT/REFUSAL FOR DIAGNOSIS AND TREATMENT 2022-08-18 16:50:11 Doctor Unassigned, Huson [facility] ASPIRATE OR ABSCESS CULTURE(AEROBIC/ANAEROBI C) 2022-08-03 21:10:00 Radha [facility] WOUND/ASPIRATE OR ABSCESS CULTURE 2022-08-03 21:10:00 Radha [facility] DME/SUPPLY JUSTIFICATION 2022-06-08 06:01:00 Doc tor Unassigned, Huson [facility] ASPIRATE OR ABSCESS CULTURE(AEROBIC/ANAEROBI C) 2022-06-07 22:13:00 Radha [facility] WOUND/ASPIRATE OR ABSCESS CULTURE 2022-06-07 22:13:00 Radha [facility] ASPIRATE OR ABSCESS CULTURE(AEROBIC/ANAEROBI C) 2022-05-26 21:56:00 Radha [facility] WOUND/ASPIRATE OR ABSCESS CULTURE 2022-05-26 21:56:00 Radha [facility] ASPIRATE OR ABSCESS CULTURE(AEROBIC/ANAEROBI C) 2022-04-20 14:57:00 Radha [facility] WOUND/ASPIRATE OR ABSCESS CULTURE 2022-04-20 14:57:00 Radha [facility] ASPIRATE OR ABSCESS CULTURE(AEROBIC/ANAEROBI C) 2022-03-16 18:39:00 Radha [facility] WOUND/ASPIRATE OR ABSCESS CULTURE 2022-03-16 18:39:00 Bridges, [facility] ASPIRATE OR ABSCESS CULTURE(AEROBIC/ANAEROBI C) 2022-02-24 16:47:00 Monisha Garcia [facility] WOUND/ASPIRATE OR ABSCESS CULTURE 2022-02-24 16:47:00 Monisha Garcia [facility] Encounters Start Date/Time End Date/Time Encounter Type Admission Type Attending [facility] Care Department Encounter ID Source 2021-12-06 09:19:04 Outpatient CECILE CASAS [facility] SVC [id number] [facility] 2021-10-07 16:58:12 Outpatient R CRISTINA BUSTILLOS [facility] EDVIN [id number] [facility] 2021-04-25 18:54:12 Outpatient R CRISTINA BUSTILLOS [facility] GIE [id number] [facility] 2021-04-22 18:10:20 Outpatient R LUCINDA LUCEROM [facility] GIE [id number] [facility] 2021-04-22 11:11:37 Outpatient R CHASE JANETTE [facility] GIE [id number] [facility] 2024-10-02 00:00:00 2024-10-02 12:59:06 Patient Secure Msg Doctor Unassigned, Huson Doctor Unassigned, Huson [facility] 2.840.114 350.1.13.10 4.2.7.2.686 [id number] [facility] 2024-09-30 10:45:00 2024-09-30 10:45:00 Wound Care Nurse Visit Lab, Ang - Teresita Ramírez Lab, Ang - Db [facility] 2.840.114 350.1.13.10 4.2.7.2.686 [id number] [facility] 2024-09-30 10:00:00 2024-09-30 10:37:36 Outpatient R TERESITA LUQUE [facility] [id number] [facility] 2024-09-30 10:00:00 2024-09-30 10:37:36 Office Visit Teresita Luque [facility] 1.2.840.114 350.1.13.10 4.2.7.2.686 [id number] [facility] 2024-08-29 00:00:00 2024-08-29 08:59:34 [facility] 1.2840.114 350.1.13.10 4.2.7.2.686 [id number] [facility] 2024-08-12 10:00:00 2024-08-12 10:00:00 Outpatient R AYLEEN GIFFORD [facility] [id number] [facility] 2018-06-04 00:00:00 2024-08-10 03:13:09 Orders Only Denisha Gonzalez [facility] ([facility]) 1.2.840.114 350.1.13.10 4.2.7.2.686 [id number] [facility] 2023-09-29 00:00:00 2024-08-10 02:26:47 Orders Only Doctor Unassigned, Huson Doctor Unassigned, Huson [facility] ([facility]) 1.2.840.114 350.1.13.10 4.2.7.2.686 [id number] [facility] 2023-10-10 00:00:00 2024-08-10 02:19:20 Orders Only Doctor Unassigned, Huson Doctor Unassigned, Huson [facility] ([facility]) 1.2.840.114 350.1.13.10 4.2.7.2.686 [id number] [facility] 2024-07-30 00:00:00 2024-07-30 10:44:37 Teresita Lindsey [facility] 1.2.840.114 350.1.13.10 4.2.7.2.686 [id number] [facility] 2024-07-01 09:45:00 2024-07-01 11:29:03 Outpatient R [facility] [id number] [facility] 2024-07-01 09:45:00 2024-07-01 11:29:03 Office Visit Balta [facility] 1.2.840.114 350.1.13.10 4.2.7.2.686 [id number] [facility] 2024-06-27 09:00:00 2024-06-27 09:00:00 Outpatient R KENNETH SOFI SUÁREZJamir [facility] [id number] [facility] 2024-06-10 00:00:00 2024-06-13 10:47:01 Telephone Kenneth [facility] 1.2.840.114 350.1.13.10 4.2.7.2.686 [id number] [facility] 2024-06-13 08:45:00 2024-06-13 08:45:00 Outpatient R RADHA DIMAS MITCHELL [facility] [id number] [facility] 2024-06-11 16:30:00 2024-06-11 16:30:00 Outpatient R GIA CARLOS [facility] [id number] [facility] 2024-06-07 08:50:00 2024-06-07 09:45:43 Outpatient R KELSY VALERIO [facility] [id number] [facility] 2024-06-07 08:50:00 2024-06-07 09:45:43 Office Visit Kelsy Valerio [facility] 1.2840.114 350.1.13.10 4.2.7.2.686 [id number] [facility] 2024-05-31 00:00:00 2024-06-06 20:40:55 [facility]phone [facility] 1.2840.114 350.1.13.10 4.2.7.2.686 [id number] [facility] 2024-05-31 16:30:00 2024-05-31 16:30:00 [facility] [id number] 2024-05-27 00:00:00 2024-05-30 16:20:13 Telephone Rebel [facility] 1.2840.114 350.1.13.10 4.2.7.2.686 [id number] [facility] 2024-05-27 00:00:00 2024-05-27 10:19:50 Telephone Gia Carlos [facility] 1.284.114 350.1.13.10 4.2.7.2.686 [id number] [facility] 2024-05-27 08:15:00 2024-05-27 08:15:00 Outpatient R [facility] [id number] [facility] 2024-05-22 14:12:52 2024-05-22 23:59:00 [facility] [id number] 2024-05-22 14:12:52 2024-05-22 23:59:00 Hospital Encounter Sofi Cooper [facility] 1.2840.114 350.1.13.10 4.2.7.2.686 [id number] [facility] 2024-05-22 14:12:52 2024-05-22 23:59:00 Hospital Encounter Sofi Cooper [facility] 1.2840.114 350.1.13.10 4.2.7.2.686 [id number] [facility] 2024-05-22 13:00:00 2024-05-22 14:27:49 Office Visit Sofi Cooper [facility] 1.2840.114 350.1.13.10 4.2.7.2.686 [id number] [facility] 2024-05-17 14:24:46 2024-05-17 23:59:00 Hospital Encounter Sofi Cooper [place] [facility] 1.2840.114 350.1.13.10 4.2.7.2.686 [id number] [facility] 2024-05-17 14:24:22 2024-05-17 23:59:00 Outpatient R SOFI COOPER SELENA [facility] [id number] [facility] 2024-05-17 14:24:22 2024-05-17 23:59:00 Hospital Encounter Sofi Cooper AT [facility] 1.2840.114 350.1.13.10 4.2.7.2.686 [id number] [facility] 2024-05-16 13:34:45 2024-05-16 23:59:00 Hospital Encounter Sofi Cooper [facility] 1.284.114 350.1.13.10 4.2.7.2.686 [id number] [facility] 2024-05-16 15:15:00 2024-05-16 15:15:00 Wound Care Nurse Visit Lab, Ang - Db Sujey Coopera Lab, Ang - Db [facility] 1..840.114 350.1.13.10 4.2.7.2.686 [id number] [facility] 2024-05-16 15:15:00 2024-05-16 14:46:57 Outpatient R KENNETHSOFI BowieTED SOFI [facility] [id number] [facility] 2024-05-16 13:00:00 2024-05-16 14:45:38 Office Visit [facility] 1.840.114 350.1.13.10 4.2.7.2.686 [id number] [facility] 2024-05-14 00:00:00 2024-05-14 10:34:17 Telephone [facility] 1.840.114 350.1.13.10 4.2.7.2.686 [id number] [facility] 2024-05-13 00:00:00 2024-05-13 12:08:08 Telephone [place], Gosia Anton Storey Gosia Walton ILANA MENDES 1.84.114 350.1.13.10 4.2.7.2.686 [id number] [facility] 2024-05-12 00:00:00 2024-05-13 09:59:04 [facility]ill [facility] 1.84.114 350.1.13.10 4.2.7.2.686 [id number] [facility] 2024-05-10 13:07:00 2024-05-10 15:15:00 Emergency X SILVA SILVESTRE [facility] ERT [id number] [facility] 2024-05-10 13:07:00 2024-05-10 15:15:00 Emergency Silva Silvestre [facility] 1.2840.114 350.1.13.10 4.2.7.2.686 [id number] [facility] 2024-04-21 14:40:00 2024-04-21 15:00:00 Urgent Care Talia Culp Unknown, Attending [facility] 1.84.114 350.1.13.10 4.2.7.2.686 [id number] [facility] 2024-04-21 14:40:00 2024-04-21 14:40:00 Outpatient R TALIA CULP [facility] [id number] [facility] 2024-04-19 10:30:00 2024-04-19 11:20:41 Outpatient R GREGORIO WALSH [facility] [id number] [facility] 2024-04-19 10:30:00 2024-04-19 11:20:41 Office Visit Gregorio Walsh [facility] 1.84.114 350.1.13.10 4.2.7.2.686 [id number] [facility] 2024-04-01 10:15:00 2024-04-01 10:34:54 Wound Care Nurse Visit Lab, Ang - Teresita Ramírez Lab, Ang - Db [facility] 1.840.114 350.1.13.10 4.2.7.2.686 [id number] [facility] 2024-04-01 09:30:00 2024-04-01 10:12:48 Outpatient R TERESITA LUQUE [facility] [id number] [facility] 2024-04-01 09:30:00 2024-04-01 10:12:48 Office Visit Teresita Luque [facility] 1..840.114 350.1.13.10 4.2.7.2.686 [id number] [facility] 2024-03-28 11:00:00 2024-03-28 11:34:44 Outpatient R RICK FULLER [facility] [id number] [facility] 2024-03-28 11:00:00 2024-03-28 11:34:44 Office Visit Rick Fuller [facility] 1.840.114 350.1.13.10 4.2.7.2.686 [id number] [facility] 2024-03-19 15:00:00 2024-03-19 16:00:42 Outpatient R SANJUANA BARBOSA CRAIG [facility] [id number] [facility] 2024-03-19 15:00:00 2024-03-19 16:00:42 Ancillary Visit Leigh Ann Meredith Craig L Brown, Melissa K [facility] BU[facility] 1..840.114 350.1.13.10 4.2.7.2.686 [id number] [facility] 2024-03-05 09:30:00 2024-03-05 10:19:53 Ancillary Visit Leigh Ann Meredith Craig L Brown, Melissa K [facility] BU[facility] 1..840.114 350.1.13.10 4.2.7.2.686 [id number] [facility] 2024-02-27 13:00:00 2024-02-27 14:00:00 Ancillary Visit Leigh Ann Meredith Craig L Brown Leigh Ann K [facility] BU[facility] 1.2.840.114 350.1.13.10 4.2.7.2.686 [id number] [facility] 2024-02-22 15:15:00 2024-02-22 16:11:42 Outpatient R SANJUANA BARBOSA CRAIG [facility] [id number] [facility] 2024-02-22 15:15:00 2024-02-22 16:11:42 Ancillary Visit Leigh Ann MeredithSanjuana Leigh Ann Meredith [facility] 1.2.840.114 350.1.13.10 4.2.7.2.686 [id number] [facility] 2024-02-16 09:30:00 2024-02-16 10:49:40 Ancillary Visit Leigh Ann Meredith BarbosaSanjuanaLeigh Ann [facility] 1.2.840.114 350.1.13.10 4.2.7.2.686 [id number] [facility] 2024-02-13 09:30:00 2024-02-13 10:33:23 Ancillary Visit Leigh Ann Meredith Leigh Ann Iglesias [facility] 1.2.840.114 350.1.13.10 4.2.7.2.686 [id number] [facility] 2024-02-12 00:00:00 2024-02-12 11:30:48 Telephone Alejandrina Taylor [facility] 1.2.840.114 350.1.13.10 4.2.7.2.686 [id number] [facility] 2024-02-10 21:31:00 2024-02-10 23:07:00 Emergency X AMADA, VENKATA EMERSON, VENKATA [facility] ERT [id number] [facility] 2024-02-10 21:31:00 2024-02-10 23:07:00 Emergency Venkata Emerson [facility] 1.2.840.114 350.1.13.10 4.2.7.2.686 [id number] [facility] 2024-02-09 14:30:00 2024-02-09 15:30:00 Ancillary Visit Leigh Ann Meredith Sanjuana Lord Leigh [facility] 1.2.840.114 350.1.13.10 4.2.7.2.686 [id number] [facility] 2024-02-02 10:15:00 2024-02-02 11:15:00 Ancillary Visit Masoud Leigh AnnSanjuana WardLeigh Ann [facility] BU[facility] 1.2.840.114 350.1.13.10 4.2.7.2.686 [id number] [facility] 2024-01-30 10:15:00 2024-01-30 11:48:10 Ancillary Visit Leigh Ann Meredith Sanjuana Lord Leigh Ann Meredith [facility] 1.2.840.114 350.1.13.10 4.2.7.2.686 [id number] [facility] 2024-01-25 11:00:00 2024-01-25 11:46:09 Ancillary Visit Ro MeredithSanjuana Ward [facility] 1.2.840.114 350.1.13.10 4.2.7.2.686 [id number] [facility] 2024-01-19 09:30:00 2024-01-19 10:21:19 Ancillary Visit Masoud Leigh AnnSanjuana Ward [facility] N[facility] BUILD[facility] 1.2.840.114 350.1.13.10 4.2.7.2.686 [id number] [facility] 2024-01-16 09:30:00 2024-01-16 10:46:00 Ancillary Visit Leigh Ann Meredith Craig L [facility] BU[facility] 1..840.114 350.1.13.10 4.2.7.2.686 [id number] [facility] 2024-01-12 00:00:00 2024-01-12 11:00:18 Case Management Leigh Ann Meredith [facility] 1.840.114 350.1.13.10 4.2.7.2.686 [id number] [facility] 2024-01-10 13:00:00 2024-01-10 13:00:00 Outpatient R SANJUANA BARBOSA CRAIG [facility] [id number] [facility] 2023-12-31 16:00:00 2023-12-31 16:33:05 Outpatient R ANA LILIA HENRIQUEZ [facility] [id number] [facility] 2023-12-31 16:00:00 2023-12-31 16:33:05 Urgent Care Ana Lilia Henriquez Unknown, Attending [facility] 1..840.114 350.1.13.10 4.2.7.2.686 [id number] [facility] 2023-12-22 08:45:00 2023-12-22 09:30:00 Ancillary Visit Leigh Ann Meredith Brian A [facility] BU[facility] 1..840.114 350.1.13.10 4.2.7.2.686 [id number] [facility] 2023-12-12 09:30:00 2023-12-12 10:14:48 Ancillary Visit Leigh Ann Meredith Brian A [facility] BUILD[facility] 1.2.840.114 350.1.13.10 4.2.7.2.686 [id number] [facility] 2023-12-08 10:15:00 2023-12-08 11:40:21 Ancillary Visit Leigh Ann Meredith Brian A [facility] BU[facility] 1.2.840.114 350.1.13.10 4.2.7.2.686 [id number] 179 [id number] [facility] 2023-12-05 10:15:00 2023-12-05 11:42:40 Ancillary Visit Leigh Ann Meredith Brian A [facility] BU[facility] 1.2.840.114 350.1.13.10 4.2.7.2.686 [id number] [facility] 2023-11-30 10:15:00 2023-11-30 11:34:15 Outpatient URBANO YOUNG [facility] [id number] [facility] 2023-11-30 10:15:00 2023-11-30 11:15:00 Ancillary Visit Leigh Ann Meredith Brian A [facility] BU[facility] 1.2.840.114 350.1.13.10 4.2.7.2.686 [id number] 179 [id number] [facility] 2023-11-24 11:00:00 2023-11-24 11:45:00 Ancillary Visit Leigh Ann Meredith Craig L [facility] BUILDING 1.2.840.114 350.1.13.10 4.2.7.2.686 [id number] 179 [id number] [facility] 2023-11-10 11:00:00 2023-11-10 11:47:41 Ancillary Visit Leigh Ann Meredith Craig L [facility] BU[facility] 1.2.840.114 350.1.13.10 4.2.7.2.686 [id number] 179 [id number] [facility] 2023-11-03 14:30:00 2023-11-03 15:30:00 Ancillary Visit Leigh Ann Meredith Craig L [facility] BU[facility] 1.2.840.114 350.1.13.10 4.2.7.2.686 [id number] 179 [id number] [facility] 2023-10-31 14:30:00 2023-10-31 15:30:00 Ancillary Visit Leigh Ann Meredith Craig L [facility] BU[facility] 1.2.840.114 350.1.13.10 4.2.7.2.686 [id number] 179 [id number] [facility] 2023-10-26 08:00:00 2023-10-26 10:48:24 Outpatient R SANJUANA BARBOSA CRAIG [facility] [id number] [facility] 2023-10-26 08:00:00 2023-10-26 09:00:00 Ancillary Visit Leigh Ann Meredith Craig L [facility] BU[facility] 1.2.840.114 350.1.13.10 4.2.7.2.686 [id number] 179 [id number] [facility] 2023-10-20 14:00:00 2023-10-20 14:56:27 Ancillary Visit Leigh Ann Meredith Craig L [facility] BU[facility] 1.2.840.114 350.1.13.10 4.2.7.2.686 [id number] 179 [id number] [facility] 2023-10-17 15:15:00 2023-10-17 16:11:22 Ancillary Visit Leigh Ann Meredith Craig L [facility] BU[facility] 1.2.840.114 350.1.13.10 4.2.7.2.686 [id number] 179 [id number] [facility] 2023-10-12 13:00:00 2023-10-12 14:00:00 Ancillary Visit Leigh Ann Meredith Craig L [facility] BU[facility] 1.2.840.114 350.1.13.10 4.2.7.2.686 [id number] 179 [id number] [facility] 2023-10-06 08:45:00 2023-10-06 09:56:17 Ancillary Visit Leigh Ann Meredith Craig L [facility] BU[facility] 1.2.840.114 350.1.13.10 4.2.7.2.686 [id number] 179 [id number] [facility] 2023-10-04 00:00:00 2023-10-04 00:00:00 Patient Secure Msg Doctor Unassigned, Huson [facility] BU[facility] 1.2.840.114 350.1.13.10 4.2.7.2.686 [id number] [facility] 2023-10-03 08:00:00 2023-10-03 09:12:39 Ancillary Visit Leigh Ann Meredith Craig L [facility] BU[facility] 1.2.840.114 350.1.13.10 4.2.7.2.686 [id number] 179 [id number] [facility] 2023-10-02 00:00:00 2023-10-02 00:00:00 Patient Secure Msg Doctor Unassigned, Huson [facility] 1.2.840.114 350.1.13.10 4.2.7.2.686 [id number] [id number] [facility] 2023-09-29 11:30:00 2023-09-29 11:45:00 Wound Care Nurse Visit Lab, Teresita Tolbert [facility] 1.2.840.114 350.1.13.10 4.2.7.2.686 [id number] [facility] 2023-09-29 10:30:00 2023-09-29 11:31:50 Outpatient R TERESITA LUQUE [facility] [id number] [facility] 2023-09-29 10:30:00 2023-09-29 11:31:50 Office Visit [facility]res[facility] 1.2.840.114 350.1.13.10 4.2.7.2.686 [id number] 044 [id number] [facility] 2023-09-27 15:15:00 2023-09-27 16:58:02 Outpatient R SANJUANA BARBOSA CRAIG [facility] [id number] [facility] 2023-09-27 15:15:00 2023-09-27 16:15:00 Ancillary Visit Leigh Ann Meredith Craig L [facility] 1.2.840.114 350.1.13.10 4.2.7.2.686 [id number] 179 [id number] [facility] 2023-09-15 14:00:00 2023-09-15 15:11:06 Ancillary Visit Leigh Ann Meredith Craig L [facility] NAL BUILDING 1.2.840.114 350.1.13.10 4.2.7.2.686 [id number] 179 [id number] [facility] 2023-09-12 15:15:00 2023-09-12 16:13:04 Ancillary Visit Leigh Ann Meredith Craig L [facility] BUILDING 1.2.840.114 350.1.13.10 4.2.7.2.686 [id number] 179 [id number] [facility] 2023-09-06 13:00:00 2023-09-06 14:00:00 Ancillary Visit Leigh Ann Meredith Cynthia [facility] 1.2.840.114 350.1.13.10 4.2.7.2.686 [id number] 179 [id number] [facility] 2023-09-06 00:00:00 2023-09-06 00:00:00 Refill [facility]qu[facility] 1.2.840.114 350.1.13.10 4.2.7.2.686 [id number] [id number] [facility] 2023-09-06 00:00:00 2023-09-06 00:00:00 Telephone Barbara [facility]ju[facility] 1.2840.114 350.1.13.10 4.2.7.2.686 [id number] [facility] 2023-09-04 00:00:00 2023-09-04 00:00:00 Telephone Rae Luquethia [facility] 1.2.840.114 350.1.13.10 4.2.7.2.686 [id number] [id number] [facility] 2023-09-01 15:15:00 2023-09-01 15:39:42 Ancillary Visit Leigh Ann Meredith [facility] NAL BUILDING 1.2.840.114 350.1.13.10 4.2.7.2.686 [id number] 179 [id number] [facility] 2023-09-01 00:00:00 2023-09-01 00:00:00 Orders Only Doctor Unassigned, Huson [facility] 1.2.840.114 350.1.13.10 4.2.7.2.686 [id number] [facility] 2023-08-25 16:00:00 2023-08-25 17:54:42 Outpatient R TERESITA LUQUE [facility] [id number] [facility] 2023-08-25 16:00:00 2023-08-25 17:00:00 Ancillary Visit Leigh Ann Meredith [facility]resita Lu[facility] 1.2.840.114 350.1.13.10 4.2.7.2.686 [id number] 179 [id number] [facility] 2023-08-23 00:00:00 2023-08-23 00:00:00 Telephone Teresita Luque [facility] 1.2.840.114 350.1.13.10 4.2.7.2.686 [id number] [id number] [facility] 2023-08-22 13:45:00 2023-08-22 15:20:50 Ancillary Visit Leigh Ann Meredith Brian A [facility] BU[facility] 1.2.840.114 350.1.13.10 4.2.7.2.686 [id number] 179 [id number] [facility] 2023-08-18 13:45:00 2023-08-18 14:45:00 Ancillary Visit Leigh Ann Meredith Craig L [facility] BUILDING 1.2.840.114 350.1.13.10 4.2.7.2.686 [id number] 179 [id number] [facility] 2023-08-15 16:45:00 2023-08-15 17:27:11 Ancillary Visit Leigh Ann Meredith Craig L [facility] BUILDING 1.2.840.114 350.1.13.10 4.2.7.2.686 [id number] 179 [id number] [facility] 2023-08-11 10:22:01 2023-08-11 23:59:00 Hospital Encounter Sanjuana Barbosa [facility] 1.114 350.1.13.10 4.2.7.2.686 [id number] [facility] 2023-08-11 13:00:00 2023-08-11 14:21:57 Ancillary Visit Leigh Ann Meredith Jill [facility] BUILDING 1..114 350.1.13.10 4.2.7.2.686 [id number] 179 [id number] [facility] 2023-08-11 10:30:00 2023-08-11 12:43:44 Outpatient R SANJUANA BARBOSA [facility] [id number] [facility] 2023-08-11 10:30:00 2023-08-11 12:43:44 Office Visit Sanjuana Barbosa [facility] 1.114 350.1.13.10 4.2.7.2.686 [id number] [facility] 2023-08-11 00:00:00 2023-08-11 00:00:00 Orders Only Doctor Unassigned, Huson [facility] 1.0.114 350.1.13.10 4.2.7.2.686 [id number] [id number] [facility] 2023-08-03 00:00:00 2023-08-03 00:00:00 Transition of Care Brandon Graham 1..114 350.1.13.10 4.2.7.2.686 [id number] [facility] 2023-08-02 14:30:00 2023-08-02 15:25:59 [facility] 1..114 350.1.13.10 4.2.7.2.686 [id number] 179 [id number] [facility] 2023-07-31 22:23:00 2023-08-02 10:55:00 Inpatient X DAREK SAUCEDO [facility] [id number] [facility] 2023-07-31 22:23:00 2023-08-02 10:55:00 Hospital Encounter Katelyn Jensen David Edionwe, [facility] 1..114 350.1.13.10 4.2.7.2.686 [id number] [id number] [facility] 2023-07-28 10:15:00 2023-07-28 11:02:29 Outpatient IVANIA MARKS [facility] [id number] [facility] 2023-07-28 10:15:00 2023-07-28 11:02:29 Ancillary [facility] 1.840.114 350.1.13.10 4.2.7.2.686 [id number] [facility] 2023-07-28 00:00:00 2023-07-28 00:00:00 Orders Only Doctor Unassigned, Huson [facility] 1..114 350.1.13.10 4.2.7.2.686 [id number] [id number] [facility] 2023-07-19 13:00:00 2023-07-19 14:00:00 Ancillary Visit Leigh Ann Meredith [facility] BUILDING 1.84.114 350.1.13.10 4.2.7.2.686 [id number] 179 [id number] [facility] 2023-07-14 09:30:00 2023-07-14 10:24:43 Ancillary Visit [facility] 1.2.840.114 350.1.13.10 4.2.7.2.686 [id number] 179 [id number] [facility] 2023-07-11 00:00:00 2023-07-11 00:00:00 Orders Only Doctor Unassigned, Huson [facility] 1.2.840.114 350.1.13.10 4.2.7.2.686 [id number] [facility] 2023-06-30 13:00:00 2023-06-30 14:05:28 Ancillary Visit Leigh Ann Meredith Ivania [facility] 1.2.840.114 350.1.13.10 4.2.7.2.686 [id number] 179 [id number] [facility] 2023-06-27 14:30:00 2023-06-27 16:18:07 Outpatient R IVANIA QUINTEROS [facility] [id number] [facility] 2023-06-27 14:30:00 2023-06-27 15:30:00 Ancillary Visit Leigh Ann Meredith Jill [facility] 1.2.840.114 350.1.13.10 4.2.7.2.686 [id number] [facility] 2023-06-20 00:00:00 2023-06-20 00:00:00 Orders Only Doctor Unassigned, Huson [facility] 1.2.840.114 350.1.13.10 4.2.7.2.686 [id number] [id number] [facility] 2023-06-14 15:15:00 2023-06-14 16:12:36 Outpatient R SANJUANA BARBOSA CRAIG [facility] [id number] [facility] 2023-06-14 15:15:00 2023-06-14 16:12:36 Ancillary Visit Leigh Ann Meredith Craig L [facility] BUILDING 1.2840.114 350.1.13.10 4.2.7.2.686 [id number] 179 [id number] [facility] 2023-06-08 13:00:00 2023-06-08 14:18:24 Ancillary Visit Leigh Ann Meredith Sanjuana Barbosa [facility] BUILDING 1.2840.114 350.1.13.10 4.2.7.2.686 [id number] 179 [id number] [facility] 2023-06-01 13:00:00 2023-06-01 14:01:03 Ancillary Visit Leigh Ann Meredith Sanjuana Barbosa [facility] 1.284.114 350.1.13.10 4.2.7.2.686 [id number] 179 [id number] [facility] 2023-05-25 13:00:00 2023-05-25 14:00:25 Outpatient R SANJUANA BARBOSA CRAIG [facility] [id number] [facility] 2023-05-25 13:00:00 2023-05-25 14:00:25 Ancillary Visit Leigh Ann Meredith Sanjuana Barbosa [facility] 1.284.114 350.1.13.10 4.2.7.2.686 [id number] 179 [id number] [facility] 2023-05-16 13:00:00 2023-05-16 14:05:11 Ancillary Visit Ro MeredithIvania Martins [facility] 1.284.114 350.1.13.10 4.2.7.2.686 [id number] 179 [id number] [facility] 2023-05-12 00:00:00 2023-05-12 00:00:00 Orders Only Doctor Unassigned, Huson [facility] 1.2.840.114 350.1.13.10 4.2.7.2.686 [id number] [id number] [facility] 2023-04-27 13:00:00 2023-04-27 14:29:52 Ancillary Visit Leigh Ann Meredith Ivania Quinter[facility] 1.2.840.114 350.1.13.10 4.2.7.2.686 [id number] [facility] 2023-04-20 13:45:00 2023-04-20 13:45:00 [id number] 2023-04-20 00:00:00 2023-04-20 00:00:00 Case Management Leigh Ann Meredith Charanjit [facility] BUILDING 1.2.840.114 350.1.13.10 4.2.7.2.686 [id number] 179 [id number] [facility] 2023-04-14 13:00:00 2023-04-14 13:45:00 Ancillary Visit MasoudRoLeigh AnnIvania Martins [facility] BUILDING 1.2.840.114 350.1.13.10 4.2.7.2.686 [id number] 179 [id number] [facility] 2023-04-07 08:00:00 2023-04-07 09:42:11 Ancillary Visit Leigh Ann Meredith Ivania Gordon [facility] BUILDING 1.2.840.114 350.1.13.10 4.2.7.2.686 [id number] 179 [id number] [facility] 2023-03-31 08:00:00 2023-03-31 09:00:00 Ancillary Visit Leigh Ann Meredith Craig L [facility] BUILDING 1.2.840.114 350.1.13.10 4.2.7.2.686 [id number] 179 [id number] [facility] 2023-03-30 14:08:12 2023-03-30 14:08:12 Outpatient [facility] [id number] Lauri Elias 2023-03-29 13:30:00 2023-03-29 13:30:00 Outpatient R ADEBAYO SCHMITT [facility] [id number] [facility] 2023-03-28 14:30:00 2023-03-28 14:30:00 Ancillary [facility] 1.2.840.114 350.1.13.10 4.2.7.2.686 [id number] 179 [id number] [facility] 2023-03-24 08:00:00 2023-03-24 08:51:46 Outpatient R IVANIA QUINTEROS [facility] [id number] [facility] 2023-03-24 08:00:00 2023-03-24 08:51:46 Ancillary Visit Leigh Ann Meredith [facility] BUILDING 1.2.840.114 350.1.13.10 4.2.7.2.686 [id number] 179 [id number] [facility] 2023-03-17 08:00:00 2023-03-17 09:12:06 Ancillary Visit Leigh Ann Meredith Craig L [facility] 1.2.840.114 350.1.13.10 4.2.7.2.686 [id number] 179 [id number] [facility] 2023-03-14 08:45:00 2023-03-14 09:45:00 Ancillary Visit Leigh Ann Meredith Craig L [facility] 1.2.840.114 350.1.13.10 4.2.7.2.686 [id number] [facility] 2023-03-10 10:00:00 2023-03-10 11:37:16 Outpatient R TERESITA LUQUE [facility] [id number] [facility] 2023-03-10 10:00:00 2023-03-10 11:37:16 [facility] 1.284.114 350.1.13.10 4.2.7.2.686 [id number] 044 [id number] [facility] 2023-03-10 11:00:00 2023-03-10 11:15:00 Wound Care Nurse Visit Lab, [facility]ign[facility] 1.284.114 350.1.13.10 4.2.7.2.686 [id number] [facility] 2023-03-08 08:00:00 2023-03-08 08:47:19 Ancillary Visit [facility] 1.84.114 350.1.13.10 4.2.7.2.686 [id number] [facility] 2023-02-23 15:00:00 2023-02-23 15:30:00 [facility] 1.284.114 350.1.13.10 4.2.7.2.686 [id number] [facility] 2023-02-23 15:00:00 2023-02-23 15:00:00 Outpatient R TERESITA LUQUE [facility] [id number] [facility] 2023-02-16 13:00:00 2023-02-16 14:16:12 Ancillary Visit Leigh Ann Meredith [facility] BUILDING 1.2840.114 350.1.13.10 4.2.7.2.686 [id number] 179 [id number] [facility] 2023-02-16 00:00:00 2023-02-16 00:00:00 Orders Only Doctor Unassigned, Huson [facility] 1.2.840.114 350.1.13.10 4.2.7.2.686 [id number] [id number] [facility] 2023-02-10 10:00:00 2023-02-10 10:00:00 Outpatient R TRENT BLISS [facility] [id number] [facility] 2023-02-10 08:00:00 2023-02-10 09:09:20 Ancillary Visit Leigh Ann Meredith Charanjit Bernardoe[facility] 1.2.840.114 350.1.13.10 4.2.7.2.686 [id number] 179 [id number] [facility] 2023-02-07 08:00:00 2023-02-07 09:17:20 Ancillary Visit Leigh Ann Meredith Charanjit Bernardoez [facility] BUILDING 1.2.840.114 350.1.13.10 4.2.7.2.686 [id number] 179 [id number] [facility] 2023-02-02 13:00:00 2023-02-02 13:58:02 Ancillary Visit Leigh Ann Meredith Neli [facility] BUILDING 1.2840.114 350.1.13.10 4.2.7.2.686 [id number] 179 [id number] [facility] 2023-02-02 00:00:00 2023-02-02 00:00:00 Orders Only Doctor Unassigned, Huson [facility] 1.2840.114 350.1.13.10 4.2.7.2.686 [id number] [id number] [facility] 2023-01-27 14:30:00 2023-01-27 15:28:32 Outpatient R IVANIA QUINTEROS [facility] [id number] [facility] 2023-01-27 14:30:00 2023-01-27 15:28:32 Ancillary Visit [facility] 1.2.840.114 350.1.13.10 4.2.7.2.686 [id number] [facility] 2023-01-25 00:00:00 2023-01-25 00:00:00 Orders Only Doctor Unassigned, Huson [facility] 1.2.840.114 350.1.13.10 4.2.7.2.686 [id number] [id number] [facility] 2023-01-20 09:30:00 2023-01-20 10:21:30 Ancillary Visit Leigh Ann Meredith [facility] 1.2.840.114 350.1.13.10 4.2.7.2.686 [id number] [facility] 2023-01-17 00:00:00 2023-01-17 00:00:00 Orders Only Doctor Unassigned, Huson [facility] 1.2.840.114 350.1.13.10 4.2.7.2.686 [id number] [facility] 2023-01-12 08:45:00 2023-01-12 09:45:00 Ancillary Visit Leigh Ann Meredith [facility] 1.2.840.114 350.1.13.10 4.2.7.2.686 [id number] [facility] 2023-01-05 08:45:00 2023-01-05 09:56:40 Outpatient R NELI, JILL [facility] [id number] [facility] 2023-01-05 08:45:00 2023-01-05 09:45:00 Ancillary Visit Leigh Ann Meredith [facility] BUILDING 1.2.840.114 350.1.13.10 4.2.7.2.686 [id number] [facility] 2023-01-03 00:00:00 2023-01-03 00:00:00 Orders Only Doctor Unassigned, Huson [facility] 1.2840.114 350.1.13.10 4.2.7.2.686 [id number] [facility] 2022-12-30 00:00:00 2022-12-30 00:00:00 Magalys Luque [facility] 1.2840.114 350.1.13.10 4.2.7.2.686 [id number] [facility] 2022-12-22 08:45:00 2022-12-22 09:42:55 [facility] 1.2840.114 350.1.13.10 4.2.7.2.686 [id number] 179 [id number] [facility] 2022-12-20 00:00:00 2022-12-20 00:00:00 Orders Only Doctor Unassigned, Huson [facility] 1.2840.114 350.1.13.10 4.2.7.2.686 [id number] [id number] [facility] 2022-12-14 13:00:00 2022-12-14 13:53:28 Ancillary Visit Leigh Ann Meredith [facility] 1.2840.114 350.1.13.10 4.2.7.2.686 [id number] [facility] 2022-12-13 00:00:00 2022-12-13 00:00:00 Case Management Leigh Ann Meredith Charanjit [facility] 1..840.114 350.1.13.10 4.2.7.2.686 [id number] [facility] 2022-12-11 21:17:00 2022-12-12 00:38:00 Emergency X SINGER BR[facility] [id number] [facility] 2022-12-11 21:17:00 2022-12-12 00:38:00 Emergency Singer [facility] 1..840.114 350.1.13.10 4.2.7.2.686 [id number] [facility] 2022-12-09 10:15:00 2022-12-09 11:03:42 Ancillary Visit [facility] 1..840.114 350.1.13.10 4.2.7.2.686 [id number] [facility] 2022-12-02 10:00:00 2022-12-02 10:00:00 Outpatient BEBETO CHIU [facility] [id number] [facility] 2022-12-01 10:00:00 2022-12-01 10:00:00 Outpatient BEBETO CHIU [facility] [id number] [facility] 2022-12-01 08:45:00 2022-12-01 09:45:00 Ancillary Visit Leigh Ann Meredith [facility] 1.2.840.114 350.1.13.10 4.2.7.2.686 [id number] [facility] 2022-12-01 00:00:00 2022-12-01 00:00:00 Orders Only Doctor Unassigned, Huson [facility] 1.2840.114 350.1.13.10 4.2.7.2.686 [id number] [facility] 2022-11-24 11:00:00 2022-11-24 11:55:11 [id number] 2022-11-24 11:00:00 2022-11-24 11:55:11 [facility]illary [facility] 1.2.840.114 350.1.13.10 4.2.7.2.686 [id number] [facility] 2022-11-18 08:45:00 2022-11-18 10:01:17 Ancillary Visit Leigh Ann Meredith [facility] 1.2.840.114 350.1.13.10 4.2.7.2.686 [id number] [facility] 2022-11-15 00:00:00 2022-11-15 00:00:00 Case Management Leigh Ann Meredith [facility] 1.2.840.114 350.1.13.10 4.2.7.2.686 [id number] [facility] 2022-11-11 10:15:00 2022-11-11 11:01:54 Ancillary Visit Leigh Ann Meredith [facility] 1.2.840.114 350.1.13.10 4.2.7.2.686 [id number] [facility] 2022-11-11 00:00:00 2022-11-11 00:00:00 Orders Only Doctor Unassigned, Huson [facility] 1.2840.114 350.1.13.10 4.2.7.2.686 [id number] [facility] 2022-11-08 08:00:00 2022-11-08 09:00:00 Ancillary Visit Leigh Ann Meredith Jill [facility] 1.20.114 350.1.13.10 4.2.7.2.686 [id number] [facility] 2022-11-02 08:45:00 2022-11-02 09:57:29 Ancillary Visit Leigh Ann Meredith [facility] 1.2.114 350.1.13.10 4.2.7.2.686 [id number] [facility] 2022-11-02 00:00:00 2022-11-02 00:00:00 Orders Only Doctor Unassigned, Huson [facility] 1.2.114 350.1.13.10 4.2.7.2.686 [id number] [facility] 2022-10-27 11:00:00 2022-10-27 11:00:00 Outpatient SANJUANA MARTINEZ CRAIG [facility] [id number] [facility] 2022-10-26 10:00:00 2022-10-26 10:00:00 Outpatient BEBETO CHIU [facility] [id number] [facility] 2022-10-25 16:45:00 2022-10-25 17:45:00 Ancillary Visit [facility] 1.284.114 350.1.13.10 4.2.7.2.686 [id number] [facility] 2022-10-21 13:00:00 2022-10-21 14:13:29 Ancillary Visit Leigh Ann Meredith Neli, [facility] 1.2840.114 350.1.13.10 4.2.7.2.686 [id number] [facility] 2022-10-18 08:45:00 2022-10-18 09:45:00 Ancillary Visit Masoud Leigh Ann Ivania [facility] 1.2.840.114 350.1.13.10 4.2.7.2.686 [id number] [facility] 2022-10-13 16:00:00 2022-10-13 16:50:53 Ancillary Visit [facility] 1.2.840.114 350.1.13.10 4.2.7.2.686 [id number] 179 [id number] [facility] 2022-10-13 00:00:00 2022-10-13 00:00:00 Orders Only Doctor Unassigned, Huson [facility] 1.2.840.114 350.1.13.10 4.2.7.2.686 [id number] [facility] 2022-10-11 09:00:00 2022-10-11 09:00:00 Outpatient BEBETO CHIU [facility] [id number] [facility] 2022-10-07 08:45:00 2022-10-07 09:30:00 Ancillary Visit Leigh Ann Meredith Jill [facility] 1.2.840.114 350.1.13.10 4.2.7.2.686 [id number] [facility] 2022-09-28 15:15:00 2022-09-28 16:27:26 Outpatient IVANIA MARKS [facility] [id number] [facility] 2022-09-28 15:15:00 2022-09-28 16:27:26 Ancillary Visit Brown, Leigh Ann K Neli, [facility] BUILDING 1.2840.114 350.1.13.10 4.2.7.2.686 [id number] [facility] 2022-09-27 00:00:00 2022-09-27 00:00:00 Orders Only Doctor Unassigned, Huson [facility] 1.2840.114 350.1.13.10 4.2.7.2.686 [id number] [facility] 2022-09-23 09:00:00 2022-09-23 10:18:49 Outpatient R TRENT BLISS [facility] [id number] [facility] 2022-09-23 09:00:00 2022-09-23 10:18:49 Office Visit Trent Bliss [facility] 1.2840.114 350.1.13.10 4.2.7.2.686 [id number] [facility] 2022-09-22 13:00:00 2022-09-22 14:00:00 Ancillary Visit MasoudLeigh Ann [facility] BUILDING 1.2840.114 350.1.13.10 4.2.7.2.686 [id number] 179 [id number] [facility] 2022-09-15 13:00:00 2022-09-15 14:14:25 Ancillary Visit Leigh Ann Meredith [facility] BUILDING 1.2840.114 350.1.13.10 4.2.7.2.686 [id number] [facility] 2022-09-08 08:45:00 2022-09-08 09:45:00 Ancillary Visit Leigh Ann Meredith [facility] BUILDING 1.2840.114 350.1.13.10 4.2.7.2.686 [id number] [facility] 2022-09-01 14:30:00 2022-09-01 15:33:04 Ancillary Visit Leigh Ann Meredith Jill [facility] 1.2.840.114 350.1.13.10 4.2.7.2.686 [id number] [facility] 2022-09-01 09:30:00 2022-09-01 09:30:00 Outpatient R IVANIA QUINTEROS [facility] [id number] [facility] 2022-08-31 08:00:00 2022-08-31 08:20:00 Office Visit Monisha Garcia [facility] 1.2.840.114 350.1.13.10 4.2.7.2.686 [id number] [facility] 2022-08-31 08:00:00 2022-08-31 08:00:00 Outpatient R MONISHA GARCIA [facility] [id number] [facility] 2022-08-31 00:00:00 2022-08-31 00:00:00 Orders Only Doctor Unassigned, Huson [facility] 1.2.840.114 350.1.13.10 4.2.7.2.686 [id number] [facility] 2022-08-30 00:00:00 2022-08-30 00:00:00 Case Management Leigh Ann Meredith [facility] 1.2.840.114 350.1.13.10 4.2.7.2.686 [id number] [facility] 2022-08-24 16:00:00 2022-08-24 16:57:12 Outpatient R IVANIA QUINTEROS [facility] [id number] [facility] 2022-08-24 16:00:00 2022-08-24 16:57:12 Ancillary Visit Leigh Ann Meredith Ivania [facility] BUILDING 1.2.840.114 350.1.13.10 4.2.7.2.686 [id number] 179 [id number] [facility] 2022-08-19 16:00:00 2022-08-19 17:00:00 Ancillary Visit Leigh Ann Meredith Brian A [facility] 1.2.840.114 350.1.13.10 4.2.7.2.686 [id number] [facility] 2022-08-18 11:39:00 2022-08-18 15:04:00 Emergency X Charanjit ROD [facility] [id number] [facility] 2022-08-18 11:39:00 2022-08-18 15:04:00 [facility] 1.2.840.114 350.1.13.10 4.2.7.2.686 [id number] [facility] 2022-08-17 11:20:00 2022-08-17 11:20:00 Outpatient MONISHA BLANK [facility] [id number] [facility] 2022-08-11 13:00:00 2022-08-11 14:00:00 Ancillary Visit Legih Ann Meredith Jill [facility] 1.2.840.114 350.1.13.10 4.2.7.2.686 [id number] [facility] 2022-08-09 13:45:00 2022-08-09 14:45:00 Ancillary Visit Leigh Ann Meredith [facility] 1.2.840.114 350.1.13.10 4.2.7.2.686 [id number] [facility] 2022-08-04 09:30:00 2022-08-04 10:28:30 Ancillary Visit Leigh Ann Meredith Craig L [facility] 1.2.840.114 350.1.13.10 4.2.7.2.686 [id number] 179 [id number] [facility] 2022-08-03 14:40:00 2022-08-03 15:00:00 Office Visit Monisha Garcia [facility] [place] 1.2.840.114 350.1.13.10 4.2.7.2.686 [id number] [facility] 2022-08-03 14:40:00 2022-08-03 14:40:00 Outpatient MONISHA BLANK [facility] [id number] [facility] 2022-07-28 15:15:00 2022-07-28 16:41:12 Outpatient R SANJUANA BARBOSA CRAIG [facility] [id number] [facility] 2022-07-28 15:15:00 2022-07-28 16:41:12 Ancillary Visit Leigh Ann Meredith Craig L [facility] 1.2.840.114 350.1.13.10 4.2.7.2.686 [id number] [facility] 2022-07-28 08:00:00 2022-07-28 08:00:00 Outpatient R MONISHA GARCIA [facility] [id number] [facility] 2022-07-14 16:45:00 2022-07-14 17:21:10 Ancillary Visit Leigh Ann Meredith Craig L [facility] 1.2.840.114 350.1.13.10 4.2.7.2.686 [id number] [facility] 2022-07-13 08:20:00 2022-07-13 08:20:00 Outpatient R MONISHA GARCIA [facility] [id number] [facility] 2022-07-07 13:00:00 2022-07-07 14:03:26 Ancillary Visit Leigh Ann Meredith Craig L [facility] 1.2.840.114 350.1.13.10 4.2.7.2.686 [id number] [facility] 2022-07-06 09:40:00 2022-07-06 09:40:00 Outpatient MONISHA BLANK [facility] [id number] [facility] 2022-06-30 13:00:00 2022-06-30 14:36:45 Outpatient SANJUANA MARTINEZ CRAIG [facility] [id number] [facility] 2022-06-30 13:00:00 2022-06-30 14:00:00 Ancillary Visit Leigh Ann Meredith Craig L [facility] 1..840.114 350.1.13.10 4.2.7.2.686 [id number] [facility] 2022-06-29 09:40:00 2022-06-29 09:40:00 Outpatient MONISHA BLANK [facility] [id number] [facility] 2022-06-23 08:45:00 2022-06-23 09:45:00 Ancillary Visit Leigh Ann Meredith Craig L [facility] 1..840.114 350.1.13.10 4.2.7.2.686 [id number] [facility] 2022-06-22 09:40:00 2022-06-22 09:40:00 Outpatient MONISHA BLANK [facility] [id number] [facility] 2022-06-21 00:00:00 2022-06-21 00:00:00 Telephone Monisha Garcia [facility] 1..840.114 350.1.13.10 4.2.7.2.686 [id number] [facility] 2022-06-14 08:45:00 2022-06-14 09:46:52 Ancillary Visit Leigh Ann Meredith Craig L [facility] 1.0.114 350.1.13.10 4.2.7.2.686 [id number] [facility] 2022-06-10 00:00:00 2022-06-10 00:00:00 Telephone Radha Monisha [facility] 1..114 350.1.13.10 4.2.7.2.686 [id number] [facility] 2022-06-09 09:20:00 2022-06-09 09:20:00 Outpatient R MONISHA GARCIA [facility] [id number] [facility] 2022-06-08 13:00:00 2022-06-08 14:41:22 Outpatient R SANJUANA BARBOSA [facility] [id number] [facility] 2022-06-08 13:00:00 2022-06-08 14:41:22 Ancillary Visit Windy Hanson Craig L [facility] 1..114 350.1.13.10 4.2.7.2.686 [id number] [facility] 2022-06-08 00:00:00 2022-06-08 00:00:00 Telephone RadhaMonisha [facility] 1..114 350.1.13.10 4.2.7.2.686 [id number] [facility] 2022-06-08 00:00:00 2022-06-08 00:00:00 Orders Only Doctor Unassigned, Huson [facility] 1.0.114 350.1.13.10 4.2.7.2.686 [id number] [facility] 2022-06-08 00:00:00 2022-06-08 00:00:00 Case Management Windy Hanson [facility] 1.2.840.114 350.1.13.10 4.2.7.2.686 [id number] [facility] 2022-06-07 13:20:00 2022-06-07 13:40:00 Office Visit Monisha Garcia [facility] 1.2.840.114 350.1.13.10 4.2.7.2.686 [id number] [facility] 2022-06-07 13:20:00 2022-06-07 13:20:00 Outpatient R MONISHA GARCIA [facility] [id number] [facility] 2022-06-03 00:00:00 2022-06-03 00:00:00 Patient Secure Msg Doctor Unassigned, Huson [facility] 1.2840.114 350.1.13.10 4.2.7.2.686 [id number] [facility] 2022-05-31 00:00:00 2022-05-31 00:00:00 Telephone Monisha Garcia [facility] 1.2.840.114 350.1.13.10 4.2.7.2.686 [id number] [facility] 2022-05-26 10:00:00 2022-05-26 10:30:00 Office Visit Monisha Garcia [facility] 1.2.840.114 350.1.13.10 4.2.7.2.686 [id number] [facility] 2022-05-26 10:00:00 2022-05-26 10:00:00 Outpatient R MONISHA GARCIA [facility] [id number] [facility] 2022-05-26 10:00:00 2022-05-26 10:00:00 Outpatient R MONISHA GARCIA [facility] [id number] [facility] 2022-05-26 08:00:00 2022-05-26 09:05:30 Office Visit Ivania Quinteros [facility] 1..840.114 350.1.13.10 4.2.7.2.686 [id number] [facility] 2022-05-12 09:30:00 2022-05-12 09:30:00 Outpatient R MONISHA GARCIA [facility] [id number] [facility] 2022-05-12 09:30:00 2022-05-12 09:30:00 Outpatient R MONISHA GARCIA [facility] [id number] [facility] 2022-05-11 08:30:00 2022-05-11 08:30:00 Outpatient R MONISHA GARCIA [facility] [id number] [facility] 2022-05-10 09:00:00 2022-05-10 09:00:00 Outpatient R IVANIA QUINTEROS [facility] [id number] [facility] 2022-05-04 09:00:00 2022-05-04 09:37:03 Outpatient R MONISHA GARCIA [facility] [id number] [facility] 2022-05-04 09:00:00 2022-05-04 09:37:03 Office Visit Monisha Garcia [facility] 1..840.114 350.1.13.10 4.2.7.2.686 [id number] [facility] 2022-04-26 11:00:00 2022-04-26 11:00:00 Outpatient R GIA CARLOS [facility] [id number] [facility] 2022-04-26 00:00:00 2022-04-26 00:00:00 Telephone Monisha Garcia [facility] 1..840.114 350.1.13.10 4.2.7.2.686 [id number] [facility] 2022-04-20 09:00:00 2022-04-20 09:30:00 Office Visit Monisha Garcia [facility] 1.2.840.114 350.1.13.10 4.2.7.2.686 [id number] [facility] 2022-04-20 09:00:00 2022-04-20 09:00:00 Outpatient R MONISHA GARCIA [facility] [id number] [facility] 2022-04-13 08:00:00 2022-04-13 09:10:40 Outpatient R SANJUANA BARBOSA [facility] [id number] [facility] 2022-04-13 08:00:00 2022-04-13 09:10:40 Ancillary Visit Leigh Ann Meredith Craig L [facility] 1.2.840.114 350.1.13.10 4.2.7.2.686 [id number] [facility] 2022-04-12 08:30:00 2022-04-12 08:30:00 Outpatient R MONISHA GARCIA [facility] [id number] [facility] 2022-03-30 08:00:00 2022-03-30 09:00:00 Ancillary Visit Leigh Ann Meredith Craig L [facility] 1.2.840.114 350.1.13.10 4.2.7.2.686 [id number] [facility] 2022-03-29 08:30:00 2022-03-29 09:00:00 Office Visit Monisha Garcia [facility] 1.2.840.114 350.1.13.10 4.2.7.2.686 [id number] [facility] 2022-03-29 08:30:00 2022-03-29 08:30:00 Outpatient R MONISHA GARCIA [facility] [id number] [facility] 2022-03-23 08:00:00 2022-03-23 09:00:00 Ancillary Visit Leigh Ann Meredith Craig L [facility] 1.2.840.114 350.1.13.10 4.2.7.2.686 [id number] [facility] 2022-03-23 08:00:00 2022-03-23 08:00:00 Outpatient R SANJUANA BARBOSA [facility] [id number] [facility] 2022-03-22 00:00:00 2022-03-22 00:00:00 Telephone Radha Monisha [facility] 1.2.840.114 350.1.13.10 4.2.7.2.686 [id number] [facility] 2022-03-16 09:00:00 2022-03-16 09:30:00 Office Visit Radha Monisha [facility] 1.2.840.114 350.1.13.10 4.2.7.2.686 [id number] [facility] 2022-03-16 09:00:00 2022-03-16 09:00:00 Outpatient R MONISHA GARCIA [facility] [id number] [facility] 2022-03-15 08:45:00 2022-03-15 09:50:41 Ancillary Visit Leigh Ann Meredith Craig L [facility] 1.2.840.114 350.1.13.10 4.2.7.2.686 [id number] [facility] 2022-03-10 10:15:00 2022-03-10 11:21:22 Ancillary Visit Leigh Ann Meredith Craig L [facility] 1.2.840.114 350.1.13.10 4.2.7.2.686 [id number] [facility] 2022-03-10 10:15:00 2022-03-10 10:15:00 Outpatient R SANJUANA BARBOSA [facility] [id number] [facility] 2022-03-09 08:30:00 2022-03-09 08:30:00 Outpatient R MONISHA GARCIA [facility] [id number] [facility] 2022-03-08 10:15:00 2022-03-08 11:40:23 Ancillary Visit Leigh Ann Meredith Craig L [facility] 1.2.840.114 350.1.13.10 4.2.7.2.686 [id number] [facility] 2022-03-03 10:15:00 2022-03-03 11:36:51 Ancillary Visit Leigh Ann Meredith Craig L [facility] 1.2.840.114 350.1.13.10 4.2.7.2.686 [id number] [facility] 2022-03-02 00:00:00 2022-03-02 00:00:00 Telephone Kriss Garcia [facility] 1.2.840.114 350.1.13.10 4.2.7.2.686 [id number] [facility] 2022-03-01 09:30:00 2022-03-01 10:58:47 Outpatient R SANJUANA BARBOSA [facility] [id number] [facility] 2022-03-01 09:30:00 2022-03-01 10:58:47 Ancillary Visit Leigh Ann Meredith Craig L [facility] 1.2.840.114 350.1.13.10 4.2.7.2.686 [id number] [facility] 2022-02-24 09:00:00 2022-02-24 09:30:00 Office Visit Monisha Garcia [facility] 1.2.840.114 350.1.13.10 4.2.7.2.686 [id number] [facility] 2022-02-24 09:00:00 2022-02-24 09:00:00 Outpatient MONISHA BLANK [facility] [id number] [facility] 2022-02-24 09:00:00 2022-02-24 09:00:00 Outpatient R MONISHA GARCIA [facility] [id number] [facility] 2022-02-24 09:00:00 2022-02-24 09:00:00 Outpatient MONISHA BLANK [facility] [id number] [facility] 2022-02-22 10:15:00 2022-02-22 11:49:39 Outpatient SANJUANA MARTINEZ [facility] [id number] [facility] 2022-02-22 10:15:00 2022-02-22 11:49:39 Ancillary Visit Leigh Ann Meredith Craig L [facility] 1.2.840.114 350.1.13.10 4.2.7.2.686 [id number] [facility] 2022-02-17 08:45:00 2022-02-17 09:49:36 Ancillary Visit Leigh Ann Meredith Craig L [facility] 1.2.840.114 350.1.13.10 4.2.7.2.686 [id number] [facility] 2022-02-15 08:45:00 2022-02-15 10:01:45 Ancillary Visit Leigh Ann Meredith Craig L [facility] 1.2.840.114 350.1.13.10 4.2.7.2.686 [id number] [facility] 2022-02-15 08:45:00 2022-02-15 08:45:00 Outpatient SANJUANA MARTINEZ [facility] [id number] [facility] 2022-02-11 13:45:00 2022-02-11 14:30:00 Ancillary Visit Leigh Ann Meredith Craig L [facility] 1.2.840.114 350.1.13.10 4.2.7.2.686 [id number] 179 [id number] [facility] 2022-02-09 11:00:00 2022-02-09 11:45:00 Ancillary Visit [facility] 1.2.840.114 350.1.13.10 4.2.7.2.686 [id number] [facility] 2022-02-04 09:00:00 2022-02-04 09:00:00 Outpatient R CHEYENNE ROBERTS [facility] [id number] [facility] 2022-02-03 08:45:00 2022-02-03 09:30:00 Ancillary Visit Leigh Ann Meredith Craig [facility] 1.2.840.114 350.1.13.10 4.2.7.2.686 [id number] [facility] 2022-02-03 08:45:00 2022-02-03 08:45:00 Outpatient R SANJUANA BARBOSA [facility] [id number] [facility] 2022-02-02 09:00:00 2022-02-02 09:30:00 Office Visit Monisha Garcia [facility] 1.2.840.114 350.1.13.10 4.2.7.2.686 [id number] [facility] 2022-02-02 09:00:00 2022-02-02 09:00:00 Outpatient MONISHA BLANK [facility] [id number] [facility] 2022-02-02 09:00:00 2022-02-02 09:00:00 Outpatient R MONISHA GARCIA [facility] [id number] [facility] 2022-02-02 09:00:00 2022-02-02 09:00:00 Outpatient MONISHA BLANK [facility] [id number] [facility] 2022-01-27 10:15:00 2022-01-27 13:06:18 Ancillary Visit Leigh Ann Meredith Craig L [facility] 1.2.840.114 350.1.13.10 4.2.7.2.686 [id number] [facility] 2022-01-25 10:15:00 2022-01-25 11:37:53 Ancillary Visit Leigh Ann Meredith Craig L [facility] 1.2.840.114 350.1.13.10 4.2.7.2.686 [id number] [facility] 2022-01-21 10:15:00 2022-01-21 11:07:30 Ancillary Visit Leigh Ann Meredith Craig L [facility] 1.2.840.114 350.1.13.10 4.2.7.2.686 [id number] [facility] 2022-01-19 10:00:00 2022-01-19 10:00:00 Outpatient MONISHA BLANK [facility] [id number] [facility] 2022-01-14 15:30:00 2022-01-14 15:30:00 Outpatient R TRENT BLISS [facility] [id number] [facility] 2022-01-11 08:30:00 2022-01-11 08:30:00 Outpatient R RONNY MARTINEZ [facility] [id number] [facility] 2022-01-07 00:00:00 2022-01-07 00:00:00 Telephone Monisha Garcia [facility] 1.2.840.114 350.1.13.10 4.2.7.2.686 [id number] [facility] 2022-01-06 10:15:00 2022-01-06 11:17:29 Ancillary Visit Leigh Ann Meredith Craig L [facility] 1.2.840.114 350.1.13.10 4.2.7.2.686 [id number] [facility] 2022-01-06 10:15:00 2022-01-06 10:15:00 Outpatient R SANJUANA BARBOSA [facility] [id number] [facility] 2022-01-05 10:00:00 2022-01-05 10:30:00 Office Visit Monisha Garcia [facility] 1.2.840.114 350.1.13.10 4.2.7.2.686 [id number] [facility] 2022-01-05 10:00:00 2022-01-05 10:00:00 Outpatient R MONISHA GARCIA [facility] [id number] [facility] 2022-01-05 10:00:00 2022-01-05 10:00:00 Outpatient R MONISHA GARCIA [facility] [id number] [facility] 2022-01-04 10:15:00 2022-01-04 12:01:01 Outpatient R SANJUANA BARBOSA [facility] [id number] [facility] 2022-01-04 10:15:00 2022-01-04 12:01:01 Ancillary Visit Leigh Ann Meredith Craig L [facility] 1.2.840.114 350.1.13.10 4.2.7.2.686 [id number] [facility] 2022-01-03 11:00:00 2022-01-03 11:30:00 Office Visit Cheyenne Roberts [facility] 1.840.114 350.1.13.10 4.2.7.2.686 [id number] [facility] 2022-01-03 11:00:00 2022-01-03 11:00:00 Outpatient R CHEYENNE ROBERTS [facility] [id number] [facility] 2021-12-31 00:00:00 2021-12-31 00:00:00 Patient Secure Msg Doctor Unassigned, [facility] 1.840.114 350.1.13.10 4.2.7.2.686 [id number] [facility] 2021-12-29 08:45:00 2021-12-29 09:00:00 Wound Care Nurse Visit Pob, [facility] Main Gia Carlos [facility] 1..840.114 350.1.13.10 4.2.7.2.686 [id number] [facility] 2021-12-29 08:45:00 2021-12-29 08:45:00 Outpatient GIA JAMISON [facility] [id number] [facility] 2021-12-29 08:45:00 2021-12-29 08:45:00 Outpatient G[facility] JAMISON [facility] [facility] [id number] [facility] 2021-12-28 14:30:00 2021-12-28 15:39:16 Outpatient R SANJUANA BARBOSA [facility] [id number] [facility] 2021-12-28 14:30:00 2021-12-28 15:39:16 Ancillary Visit Leigh Ann Meredith Craig L [facility] 1.840.114 350.1.13.10 4.2.7.2.686 [id number] [facility] 2021-12-28 14:30:00 2021-12-28 15:39:16 Outpatient SANJUANA MARTINEZ [facility] [id number] [facility] 2021-12-28 14:30:00 2021-12-28 14:30:00 Outpatient SANJUANA MARTINEZ [facility] [id number] [facility] 2021-12-28 11:00:00 2021-12-28 13:10:16 Office Visit Gia Carlos [facility] 1..114 350.1.13.10 4.2.7.2.686 [id number] [facility] 2021-12-28 11:00:00 2021-12-28 13:10:16 Outpatient GIA JAMISON [facility] [id number] [facility] 2021-12-28 11:00:00 2021-12-28 11:00:00 Outpatient GIA JAMISON [facility] [id number] [facility] 2021-12-23 13:00:00 2021-12-23 14:00:00 Ancillary Visit Leigh Ann Meredith Craig L [facility] 1.84.114 350.1.13.10 4.2.7.2.686 [id number] [facility] 2021-12-21 05:08:00 2021-12-21 11:51:00 Outpatient R CECILE CASAS [facility] [id number] [facility] 2021-12-21 05:08:00 2021-12-21 11:51:00 Hospital Encounter [facility] 1..114 350.1.13.10 4.2.7.2.686 [id number] [facility] 2021-12-21 06:55:00 2021-12-21 09:42:00 Surgery [facility] 1..114 350.1.13.10 4.2.7.2.686 [id number] [facility] 2021-12-20 08:15:00 2021-12-20 08:30:00 Laboratory Only Only, Adc Test Cecile Casas [facility] 1.2.840.114 350.1.13.10 4.2.7.2.686 [id number] [facility] 2021-12-20 08:15:00 2021-12-20 08:15:00 Outpatient R JEZ CASASNIFER [facility] [id number] [facility] 2021-12-18 08:30:00 2021-12-18 08:30:00 Outpatient R JEZ CASASNIFER [facility] [id number] [facility] 2021-12-16 10:15:00 2021-12-16 11:15:00 Ancillary Visit Leigh Ann Meredith Craig L [facility] 1.2.840.114 350.1.13.10 4.2.7.2.686 [id number] 179 [id number] [facility] 2021-12-14 15:30:00 2021-12-14 16:30:00 Ancillary Visit Leigh Ann Meredith Craig L [facility] 1.2.840.114 350.1.13.10 4.2.7.2.686 [id number] [facility] 2021-12-09 10:15:00 2021-12-09 11:15:00 Ancillary Visit Leigh Ann Meredith Craig L [facility] 1.2.840.114 350.1.13.10 4.2.7.2.686 [id number] [facility] 2021-12-09 10:15:00 2021-12-09 10:15:00 Outpatient R SANJUANA BARBOSA [facility] [id number] [facility] 2021-12-07 10:15:00 2021-12-07 11:15:00 Ancillary Visit Leigh Ann Meredith Craig L [facility] 1.2.840.114 350.1.13.10 4.2.7.2.686 [id number] 179 [id number] [facility] 2021-12-06 08:00:00 2021-12-06 09:23:27 Office Visit RobertsCheyenne whitney [facility] 1.2.840.114 350.1.13.10 4.2.7.2.686 [id number] [facility] 2021-12-06 08:00:00 2021-12-06 09:23:27 Outpatient R ROBERTS, [place] [facility] [id number] [facility] 2021-12-06 08:00:00 2021-12-06 08:00:00 Outpatient R JEB [place] [facility] [id number] [facility] 2021-12-06 00:00:00 2021-12-06 00:00:00 Prep For Surgery Roberts, [place] [facility] 1.2.840.114 350.1.13.10 4.2.7.2.686 [id number] [facility] 2021-12-02 10:15:00 2021-12-02 11:15:00 Ancillary Visit Leigh Ann Meredith Craig L [facility] 1.2.840.114 350.1.13.10 4.2.7.2.686 [id number] [facility] 2021-12-02 10:15:00 2021-12-02 10:15:00 Outpatient R SANJUANA BARBOSA [facility] [id number] [facility] 2021-11-30 10:15:00 2021-11-30 11:15:00 Ancillary Visit Leigh Ann Meredith Craig L [facility] 1.2.840.114 350.1.13.10 4.2.7.2.686 [id number] [facility] 2021-11-26 13:00:00 2021-11-26 13:30:00 Office Visit Monisha Garcia [facility] [place] 1.2.840.114 350.1.13.10 4.2.7.2.686 [id number] [facility] 2021-11-26 13:00:00 2021-11-26 13:00:00 Outpatient R MONISHA GARCIA [facility] [id number] [facility] 2021-11-25 09:30:00 2021-11-25 09:30:00 Outpatient R SANJUANA BARBOSA [facility] [id number] [facility] 2021-11-25 09:30:00 2021-11-25 09:30:00 Outpatient R SANJUANA BARBOSA [facility] [id number] [facility] 2021-11-23 10:15:00 2021-11-23 11:15:00 Ancillary Visit Leigh Ann Meredith Craig L [facility] 1.2.840.114 350.1.13.10 4.2.7.2.686 [id number] 179 [id number] [facility] 2021-11-18 10:15:00 2021-11-18 11:15:00 Ancillary Visit Leigh Ann Meredith Craig L [facility] 1.2.840.114 350.1.13.10 4.2.7.2.686 [id number] [facility] 2021-11-17 13:00:00 2021-11-17 13:00:00 Outpatient R MONISHA GARCIA [facility] [id number] [facility] 2021-11-16 09:30:00 2021-11-16 10:30:00 Ancillary Visit Leigh Ann Meredith Craig L [facility] 1.2.840.114 350.1.13.10 4.2.7.2.686 [id number] [facility] 2021-11-11 09:30:00 2021-11-11 10:30:00 Ancillary Visit Leigh Ann MeredithonaldSanjuana [facility] 1.2.840.114 350.1.13.10 4.2.7.2.686 [id number] 179 [id number] [facility] 2021-11-09 09:30:00 2021-11-09 10:30:00 Ancillary Visit Leigh Ann Meredith Craig L [facility] 1.2.840.114 350.1.13.10 4.2.7.2.686 [id number] [facility] 2021-11-09 09:30:00 2021-11-09 09:30:00 Outpatient R SANJUANA BARBOSA [facility] [id number] [facility] 2021-11-04 14:30:00 2021-11-04 15:30:00 Ancillary Visit Leigh Ann Meredith BarbosaSanjuana [facility] 1.2.840.114 350.1.13.10 4.2.7.2.686 [id number] [facility] 2021-11-04 15:15:00 2021-11-04 15:15:00 Outpatient R SANJUANA BARBOSA [facility] [id number] [facility] 2021-11-03 08:00:00 2021-11-03 08:40:36 Outpatient MONISHA BLANK [facility] [id number] [facility] 2021-11-03 08:00:00 2021-11-03 08:40:36 Office Visit Monisha Garcia [facility] 1.84.114 350.1.13.10 4.2.7.2.686 [id number] [facility] 2021-11-03 08:00:00 2021-11-03 08:40:36 Outpatient MONISHA BLANK [facility] [id number] [facility] 2021-10-28 14:45:00 2021-10-28 15:45:00 Ancillary Visit Leigh Ann Meredith Craig L [facility] 1.840.114 350.1.13.10 4.2.7.2.686 [id number] [facility] 2021-10-28 14:45:00 2021-10-28 14:45:00 Outpatient R SANJUANA BARBOSA [facility] [id number] [facility] 2021-10-28 14:45:00 2021-10-28 14:45:00 Outpatient R SANJUANA BARBOSA [facility] [id number] [facility] 2021-10-28 14:45:00 2021-10-28 14:45:00 Outpatient R SANJUANA BARBOSA [facility] [id number] [facility] 2021-10-21 10:15:00 2021-10-21 10:15:00 Outpatient Noman SANJUANA BARBOSA [facility] [id number] [facility] 2021-10-19 10:15:00 2021-10-19 11:15:00 Ancillary Visit Leigh Ann Meredith Craig L [facility] 1.840.114 350.1.13.10 4.2.7.2.686 [id number] [facility] 2021-10-14 10:15:00 2021-10-14 11:15:00 Ancillary Visit Leigh Ann Meredith Craig L [facility] 1.840.114 350.1.13.10 4.2.7.2.686 [id number] [facility] 2021-10-11 00:00:00 2021-10-11 00:00:00 Telephone Monisha Garcia [facility] 1.2.840.114 350.1.13.10 4.2.7.2.686 [id number] [facility] 2021-10-06 14:30:00 2021-10-06 15:30:00 Ancillary Visit Leigh Ann Meredith Craig L [facility] 1.2.840.114 350.1.13.10 4.2.7.2.686 [id number] [facility] 2021-10-06 14:30:00 2021-10-06 14:30:00 Outpatient R SANJUANA BARBOSA [facility] [id number] [facility] 2021-10-06 10:30:00 2021-10-06 10:44:45 Office Visit Monisha Garcia [facility] 1.2.840.114 350.1.13.10 4.2.7.2.686 [id number] [facility] 2021-10-06 10:30:00 2021-10-06 10:44:45 Outpatient R MONISHA GARCIA [facility] [id number] [facility] 2021-10-06 10:30:00 2021-10-06 10:44:45 Outpatient R MONISHA GARCIA [facility] [id number] [facility] 2021-10-06 10:30:00 2021-10-06 10:44:45 Outpatient R MONISHA GARCIA [facility] [id number] [facility] 2021-10-06 10:30:00 2021-10-06 10:30:00 Outpatient R MONISHA GARCIA [facility] [id number] [facility] 2021-10-04 00:00:00 2021-10-04 00:00:00 Patient Secure Msg Doctor Unassigned, Huson [facility] 1.2.840.114 350.1.13.10 4.2.7.2.686 [id number] [facility] 2021-09-28 14:30:00 2021-09-30 09:05:03 Outpatient SANJUANA MARTINEZ [facility] [id number] [facility] 2021-09-28 14:30:00 2021-09-30 09:05:03 Outpatient SANJUANA MARTINEZ [facility] [id number] [facility] 2021-09-28 14:30:00 2021-09-30 09:05:03 Outpatient SANJUANA MARTINEZ [facility] [id number] [facility] 2021-09-28 14:30:00 2021-09-28 15:30:00 Ancillary Visit Leigh Ann Meredith Craig L [facility] 1.2.840.114 350.1.13.10 4.2.7.2.686 [id number] [facility] 2021-09-28 14:30:00 2021-09-28 14:30:00 Outpatient SANJUANA MARTINEZ [facility] [id number] [facility] 2021-09-22 10:15:00 2021-09-22 11:45:53 Outpatient SANJUANA MARTINEZ [facility] [id number] [facility] 2021-09-22 10:15:00 2021-09-22 11:45:53 Ancillary Visit Leigh Ann Meredith Craig L [facility] 1.2.840.114 350.1.13.10 4.2.7.2.686 [id number] [facility] 2021-09-20 13:00:00 2021-09-20 14:37:06 Outpatient JUANITO BURTON [facility] [id number] [facility] 2021-09-20 13:00:00 2021-09-20 14:37:06 Office Visit Juanito Fu [facility] 1.2.840.114 350.1.13.10 4.2.7.2.686 [id number] [facility] 2021-09-20 13:00:00 2021-09-20 14:37:06 Outpatient R JUANITO FU [facility] [id number] [facility] 2021-09-17 10:15:00 2021-09-17 11:05:39 Outpatient R SANJUANA BARBOSA [facility] [id number] [facility] 2021-09-17 10:15:00 2021-09-17 11:05:39 Ancillary [facility] 1.2.840.114 350.1.13.10 4.2.7.2.686 [id number] [facility] 2021-09-16 16:15:00 2021-09-16 17:09:43 Ancillary Visit Leigh Ann Meredith Craig L [facility] 1.2.840.114 350.1.13.10 4.2.7.2.686 [id number] [facility] 2021-09-15 10:15:00 2021-09-15 11:15:00 Ancillary Visit Leigh Ann Meredith Craig L [facility] 1.2.840.114 350.1.13.10 4.2.7.2.686 [id number] [facility] 2021-09-14 16:15:00 2021-09-14 17:25:22 Ancillary Visit Leigh Ann Meredith Craig L [facility] 1.2.840.114 350.1.13.10 4.2.7.2.686 [id number] [facility] 2021-09-10 13:45:00 2021-09-10 14:49:23 Ancillary Visit Masoud Sanjuana Melara [facility] 1.2.840.114 350.1.13.10 4.2.7.2.686 [id number] [facility] 2021-09-09 16:00:00 2021-09-09 17:00:00 Ancillary Visit Masoud Sanjuana Melara [facility] 1.2.840.114 350.1.13.10 4.2.7.2.686 [id number] [facility] 2021-09-08 10:15:00 2021-09-08 11:15:00 Ancillary Visit Leigh Ann Meredith Craig L [facility] 1.2.840.114 350.1.13.10 4.2.7.2.686 [id number] [facility] 2021-09-07 14:30:00 2021-09-07 15:30:00 Ancillary Visit Masoud Sanjuana Melara [facility] 1.2.840.114 350.1.13.10 4.2.7.2.686 [id number] [facility] 2021-09-07 08:30:00 2021-09-07 08:30:00 Outpatient MONISHA BLANK [facility] [id number] [facility] 2021-09-01 13:00:00 2021-09-01 14:00:00 Ancillary Visit Leigh Ann Meredith Craig L [facility] 1.2.840.114 350.1.13.10 4.2.7.2.686 [id number] [facility] 2021-09-01 08:00:00 2021-09-01 08:00:00 Outpatient MONISHA BLANK [facility] [id number] [facility] 2021-09-01 00:00:00 2021-09-01 00:00:00 Orders Only Doctor Unassigned, Huson [facility] 1.2.840.114 350.1.13.10 4.2.7.2.686 [id number] [facility] 2021-08-25 16:00:00 2021-08-25 17:19:41 Outpatient R SANJUANA BARBOSA [facility] [id number] [facility] 2021-08-25 16:00:00 2021-08-25 17:19:41 Outpatient R SANJUANA BARBOSA [facility] [id number] [facility] 2021-08-25 16:00:00 2021-08-25 17:19:41 Outpatient R SANJUANA BARBOSA [facility] [id number] [facility] 2021-08-25 16:00:00 2021-08-25 17:19:41 Outpatient R SANJUANA BARBOSA [facility] [id number] [facility] 2021-08-25 16:00:00 2021-08-25 17:00:00 Ancillary Visit Leigh Ann Meredith Craig L [facility] 1.2.840.114 350.1.13.10 4.2.7.2.686 [id number] [facility] 2021-08-18 10:15:00 2021-08-18 11:35:06 Ancillary Visit Leigh Ann Meredith Craig L [facility] 1.2.840.114 350.1.13.10 4.2.7.2.686 [id number] [facility] 2021-08-18 10:15:00 2021-08-18 10:15:00 Outpatient R SANJUANA BARBOSA [facility] [id number] [facility] 2021-08-17 14:00:00 2021-08-17 14:00:00 Outpatient R MONISHA GARCIA [facility] [id number] [facility] 2021-08-11 10:15:00 2021-08-11 11:15:00 Ancillary Visit Masoud Leigh Ann Sanjuana Lord [facility] 1..840.114 350.1.13.10 4.2.7.2.686 [id number] [facility] 2021-08-11 10:15:00 2021-08-11 10:15:00 Outpatient R SANJUANA BARBOSA [facility] [id number] [facility] 2021-08-10 07:55:48 2021-08-10 23:59:00 Outpatient R DOUG LANG [facility] [id number] [facility] 2021-08-10 07:55:48 2021-08-10 23:59:00 Hospital Encounter Monisha Garcia [facility] 1..840.114 350.1.13.10 4.2.7.2.686 [id number] [facility] 2021-08-10 07:55:48 2021-08-10 23:59:00 Outpatient R DOUG LANG [facility] [id number] [facility] 2021-08-10 00:00:00 2021-08-10 00:00:00 Telephone Monisha Garcia [facility] 1..840.114 350.1.13.10 4.2.7.2.686 [id number] [facility] 2021-08-06 09:30:00 2021-08-06 10:32:55 Outpatient R CHEYENNE ROBERTS [facility] [id number] [facility] 2021-08-06 09:30:00 2021-08-06 10:32:55 Office Visit Cheyenne Roberts [facility] 1.2.840.114 350.1.13.10 4.2.7.2.686 [id number] [facility] 2021-08-06 09:30:00 2021-08-06 09:30:00 Outpatient R JEB CHEYENNE [facility] [id number] [facility] 2021-08-04 09:30:00 2021-08-04 11:47:32 Outpatient R SANJUANA BARBOSA [facility] [id number] [facility] 2021-08-04 09:30:00 2021-08-04 11:47:32 Ancillary Visit [facility] 1.2.840.114 350.1.13.10 4.2.7.2.686 [id number] [facility] 2021-08-04 09:30:00 2021-08-04 09:30:00 Outpatient R SANJUANA BARBOSA [facility] [id number] [facility] 2021-08-04 00:00:00 2021-08-04 00:00:00 Telephone Monisha Garcia [facility] 1.2.840.114 350.1.13.10 4.2.7.2.686 [id number] [facility] 2021-08-03 14:30:00 2021-08-03 15:00:00 Office Visit Monisha Garcia [facility] 1.2.840.114 350.1.13.10 4.2.7.2.686 [id number] [facility] 2021-08-03 14:30:00 2021-08-03 15:00:00 Office Visit Monisha Garcia [facility] 1.2.840.114 350.1.13.10 4.2.7.2.686 [id number] [facility] 2021-08-03 14:30:00 2021-08-03 14:30:00 Outpatient R RADHA MONISHA [facility] [id number] [facility] 2021-08-03 14:30:00 2021-08-03 14:30:00 Outpatient R RADHA MONISHA [facility] [id number] [facility] 2021-08-03 00:00:00 2021-08-03 00:00:00 Orders Only Doctor Unassigned, Huson [facility] 1..840.114 350.1.13.10 4.2.7.2.686 [id number] [facility] 2021-07-28 09:30:00 2021-07-28 10:40:39 Ancillary Visit Leigh Ann Meredith Craig L [facility] 1..840.114 350.1.13.10 4.2.7.2.686 [id number] [facility] 2021-07-28 09:30:00 2021-07-28 10:40:39 Outpatient R SANJUANA BARBOSA [facility] [id number] [facility] 2021-07-28 09:30:00 2021-07-28 10:40:39 Outpatient R SANJUANA BARBOSA [facility] [id number] [facility] 2021-07-28 09:30:00 2021-07-28 10:40:39 Outpatient R SANJUANA BARBOSA [facility] [id number] [facility] 2021-07-28 09:30:00 2021-07-28 10:40:39 Outpatient R SANJUANA BARBOSA [facility] [id number] [facility] 2021-07-28 09:30:00 2021-07-28 10:40:39 Outpatient R SANJUANA BARBOSA [facility] [id number] [facility] 2021-07-26 13:15:00 2021-07-26 14:02:11 Outpatient R JUANITO FU [facility] [id number] [facility] 2021-07-26 13:15:00 2021-07-26 14:02:11 Office Visit Nickie Juanito Travis [facility] 1.2.840.114 350.1.13.10 4.2.7.2.686 [id number] [facility] 2021-07-21 10:15:00 2021-07-21 11:00:00 Ancillary Visit Masoud Leigh Ann Donohue [facility] Barb[facility] [id number] 350.1.13.10 4.2.7.2.686 [id number] [facility] 2021-07-21 10:15:00 2021-07-21 10:15:00 Outpatient R SANJUANA BARBOSA [facility] [id number] [facility] 2021-07-15 10:00:00 2021-07-15 10:00:00 Outpatient R CHEYENNE ROBERTS [facility] [id number] [facility] 2021-07-13 00:00:00 2021-07-13 00:00:00 Telephone Cheyenne Roberts [facility] 1.2.840.114 350.1.13.10 4.2.7.2.686 [id number] [facility] 2021-07-09 08:51:01 2021-07-09 23:59:00 Outpatient R CHEYENNE ROBERTS [facility] [id number] [facility] 2021-07-09 08:51:01 2021-07-09 23:59:00 Hospital Encounter Cheyenne Roberts R [facility] [id number] 350.1.13.10 4.2.7.2.686 [id number] [facility] 2021-07-09 00:00:00 2021-07-09 00:00:00 Outpatient R CHEYENNE ROBERTS [facility] [id number] [facility] 2021-07-09 00:00:00 2021-07-09 00:00:00 Orders Only Doctor Unassigned, [facility] .840.114 350.1.13.10 4.2.7.2.686 [id number] [facility] 2021-06-30 10:00:00 2021-06-30 11:59:19 Outpatient R SANJUANA BARBOSA [facility] [id number] [facility] 2021-06-30 10:00:00 2021-06-30 11:59:19 Outpatient R SANJUANA BARBOSA [facility] [id number] [facility] 2021-06-30 10:00:00 2021-06-30 11:59:19 Outpatient R SANJUANA BARBOSA [facility] [id number] [facility] 2021-06-30 10:00:00 2021-06-30 11:59:19 Outpatient R SANJUANA BARBOSA [facility] [id number] [facility] 2021-06-30 10:00:00 2021-06-30 11:59:19 Outpatient R SANJUANA BARBOSA [facility] [id number] [facility] 2021-06-30 10:00:00 2021-06-30 11:59:19 Outpatient R SANJUANA BARBOSA [facility] [id number] [facility] 2021-06-30 10:00:00 2021-06-30 11:59:19 Outpatient R SANJUANA BARBOSA [facility] [id number] [facility] 2021-06-30 10:00:00 2021-06-30 11:00:00 Ancillary Visit Leigh Ann Meredith Craig L [facility] 1.840.114 350.1.13.10 4.2.7.2.686 [id number] 179 [id number] [facility] 2021-06-30 00:00:00 2021-06-30 00:00:00 Telephone Cheyenne Roberts Noman [facility] OFF[facility] BUILDING 1.2.840.114 350.1.13.10 4.2.7.2.686 [id number] [facility] 2021-06-23 10:00:00 2021-06-23 10:55:51 Outpatient R SANJUANA BARBOSA [facility] [id number] [facility] 2021-06-23 10:00:00 2021-06-23 10:55:51 Ancillary Visit Leigh Ann Meredith Craig [facility] 1.2.840.114 350.1.13.10 4.2.7.2.686 [id number] 179 [id number] [facility] 2021-06-23 10:00:00 2021-06-23 10:00:00 Outpatient R SANJUANA BARBOSA [facility] [id number] [facility] 2021-06-21 09:30:00 2021-06-21 09:30:00 Outpatient R TRACEYCRISTINA Dupree [facility] [id number] [facility] 2021-06-21 09:30:00 2021-06-21 09:30:00 Outpatient R TRACEYCRISTINA Dupree [facility] [id number] [facility] 2021-06-16 10:00:00 2021-06-16 11:00:00 Ancillary Visit Leigh Ann Meredith Craig L [facility] BU[facility]ING 1.2.840.114 350.1.13.10 4.2.7.2.686 [id number] 179 [id number] [facility] 2021-06-09 10:00:00 2021-06-09 11:00:00 Ancillary Visit Leigh Ann Meredith Craig L [facility] BU[facility]ING 1.2.840.114 350.1.13.10 4.2.7.2.686 [id number] 179 [id number] [facility] 2021-06-02 10:12:14 2021-06-02 10:54:52 Ancillary Visit Leigh Ann Meredith Craig L [facility] BU[facility]ING 1.2.840.114 350.1.13.10 4.2.7.2.686 [id number] 179 [id number] [facility] 2021-05-28 14:56:05 2021-05-28 15:26:05 Office Visit Cheyenne Roberts [facility] 1.2840.114 350.1.13.10 4.2.7.2.686 [id number] [facility] 2021-05-28 15:00:00 2021-05-28 15:00:00 Outpatient R CHEYENNE ROBERTS [facility] [id number] [facility] 2021-05-25 08:00:00 2021-05-25 08:00:00 Outpatient R SANJUANA BARBOSA [facility] [id number] [facility] 2021-05-12 10:02:46 2021-05-12 11:02:46 Ancillary Visit Leigh Ann Meredith Craig L [facility] BUILDING 1.2.840.114 350.1.13.10 4.2.7.2.686 [id number] 179 [id number] [facility] 2021-05-05 10:03:19 2021-05-05 14:47:31 Ancillary Visit Leigh Ann Meredith Craig L [facility] BUILDING 1.2.840.114 350.1.13.10 4.2.7.2.686 [id number] 179 [id number] [facility] 2021-04-28 10:30:12 2021-04-28 14:22:09 Ancillary Visit Leigh Ann Meredith Craig L [facility] BUILDING 1.2.840.114 350.1.13.10 4.2.7.2.686 [id number] 179 [id number] [facility] 2021-04-28 00:00:00 2021-04-28 00:00[facility] 1.2840.114 350.1.13.10 4.2.7.2.686 [id number] [facility] 2021-04-21 09:47:10 2021-04-21 10:44:58 Ancillary Visit Leigh Ann Meredith Craig L [facility] Building 1.2840.114 350.1.13.10 4.2.7.2.686 [id number] 179 [id number] [facility] 2021-04-15 09:30:00 2021-04-15 09:30:00 Outpatient CHEYENNE MANN [facility] [id number] [facility] 2021-04-14 09:43:12 2021-04-14 10:43:12 Ancillary Visit Leigh Ann Meredith Craig L [facility] Building 1.20.114 350.1.13.10 4.2.7.2.686 [id number] 179 [id number] [facility] 2021-04-12 00:00:00 2021-04-12 00:00:00 Magalys Luque [facility] [facility] Medical Office Building 1.2840.114 350.1.13.10 4.2.7.2.686 [id number] [id number] [facility] 2021-04-08 09:21:35 2021-04-08 11:32:05 Ancillary Visit Leigh Ann Meredith Craig L [facility] Building 1.2840.114 350.1.13.10 4.2.7.2.686 [id number] 179 [id number] [facility] 2021-04-08 00:00:00 2021-04-08 00:00:00 Patient Secure Msg Doctor Unassigned, Huson [facility] 1.2840.114 350.1.13.10 4.2.7.2.686 [id number] [facility] 2021-04-05 14:18:22 2021-04-05 15:36:32 Office Visit Juanito Fu [facility] Professio nal Building 1.2.114 350.1.13.10 4.2.7.2.686 [id number] 201 [id number] [facility] 2021-04-05 14:30:00 2021-04-05 14:30:00 Outpatient R JUANITO FU [facility] [id number] [facility] 2021-04-02 11:33:33 2021-04-02 11:55:30 Wound Care Nurse Visit Lab, Jignesh Teaguecayetano [facility] Medical Office Building 1.284.114 350.1.13.10 4.2.7.2.686 [id number] [facility] 2021-04-02 11:33:33 2021-04-02 11:48:33 Wound Care Nurse Visit Lab, Jignesh Teaguecayetano [facility] Medical Office Building 1.2.114 350.1.13.10 4.2.7.2.686 [id number] 353 [id number] [facility] 2021-04-02 10:26:26 2021-04-02 11:34:34 Office Visit Rebel [facility] Medical Office Building 1.20.114 350.1.13.10 4.2.7.2.686 [id number] [facility] 2021-04-02 10:30:00 2021-04-02 10:30:00 Outpatient TERESITA BERGMAN [facility] [id number] [facility] 2021-03-31 09:57:55 2021-03-31 11:14:22 Ancillary Visit Leigh Ann Meredith Craig L [facility] Professio nal Building 1.2.840.114 350.1.13.10 4.2.7.2.686 [id number] 179 [id number] [facility] 2021-03-31 10:00:00 2021-03-31 10:00:00 Outpatient R SANJUANA BARBOSA [facility] [id number] [facility] 2021-03-24 09:42:15 2021-03-24 15:28:57 Ancillary Visit Leigh Ann Meredith Craig [facility] 1.2.840.114 350.1.13.10 4.2.7.2.686 [id number] [facility] 2021-03-10 09:47:55 2021-03-10 10:47:55 Ancillary Visit Leigh Ann Meredith Craig L [facility] 1.2.840.114 350.1.13.10 4.2.7.2.686 [id number] [facility] 2021-03-08 13:30:00 2021-03-08 13:30:00 Outpatient R NICKIE JUANITO [facility] [id number] [facility] 2021-03-03 10:05:14 2021-03-03 11:04:24 Ancillary Visit Leigh Ann Meredith Craig [facility] Building 1.2.840.114 350.1.13.10 4.2.7.2.686 [id number] 179 [id number] [facility] 2021-03-03 10:00:00 2021-03-03 10:00:00 Outpatient [facility] [id number] [facility] 2021-02-24 09:10:00 2021-02-24 10:30:00 Ancillary Visit Leigh Ann Meredith Craig [facility] 1.2.840.114 350.1.13.10 4.2.7.2.686 [id number] 179 [id number] [facility] 2021-02-17 10:20:08 2021-02-17 11:11:19 Ancillary Visit Leigh Ann Meredith Craig L [facility] Building 1.2.840.114 350.1.13.10 4.2.7.2.686 [id number] [facility] 2021-02-10 10:55:23 2021-02-10 11:11:29 Ancillary Visit Leigh Ann Meredith BarbosaSanjuana [facility] Building 1.2.840.114 350.1.13.10 4.2.7.2.686 [id number] 179 [id number] [facility] 2021-02-03 15:07:13 2021-02-03 16:07:21 Ancillary Visit Leigh Ann MeerdithonaldSanjuana [facility] Building 1.2.840.114 350.1.13.10 4.2.7.2.686 [id number] 179 [id number] [facility] 2021-01-27 10:02:38 2021-01-27 11:03:01 Ancillary Visit Leigh Ann Meredith BarbosaSanjuana [facility] Building 1.2.840.114 350.1.13.10 4.2.7.2.686 [id number] 179 [id number] [facility] 2021-01-27 10:00:00 2021-01-27 10:00:00 Outpatient R SANJUANA BARBOSA [facility] [id number] [facility] 2021-01-25 13:29:38 2021-01-25 14:28:10 Office Visit Juanito Fu [facility] 1.2.840.114 350.1.13.10 4.2.7.2.686 [id number] [facility] 2021-01-25 13:30:00 2021-01-25 13:30:00 Outpatient R JUANITO FU [facility] [id number] [facility] 2021-01-20 10:01:41 2021-01-20 11:19:02 Ancillary Visit Leigh Ann Meredith Craig L [facility] 1.2.840.114 350.1.13.10 4.2.7.2.686 [id number] 179 [id number] [facility] 2021-01-14 13:02:46 2021-01-14 15:07:49 Ancillary Visit Leigh Ann Meredith Craig L [facility] 1.2.840.114 350.1.13.10 4.2.7.2.686 [id number] 179 [id number] [facility] 2021-01-14 00:00:00 2021-01-14 00:00:00 Telephone Juanito Fu [facility] 1.2.840.114 350.1.13.10 4.2.7.2.686 [id number] 201 [id number] [facility] 2021-01-14 00:00:00 2021-01-14 00:00:00 Orders Only Doctor Unassigned, Huson [facility] 1.2.840.114 350.1.13.10 4.2.7.2.686 [id number] [facility] 2021-01-11 13:35:36 2021-01-11 14:38:43 Office Visit Juanito Fu [facility] 1.2.840.114 350.1.13.10 4.2.7.2.686 [id number] 201 [id number] [facility] 2021-01-11 13:30:00 2021-01-11 13:30:00 Outpatient JUANITO BURTON [facility] [id number] [facility] 2021-01-08 13:36:24 2021-01-08 15:15:18 Ancillary Visit Leigh Ann Meredith Craig L [facility] 1.2.840.114 350.1.13.10 4.2.7.2.686 [id number] [facility] 2020-12-30 11:14:34 2020-12-30 11:55:01 Ancillary Visit Leigh Ann Meredith Craig L [facility] 1.2.840.114 350.1.13.10 4.2.7.2.686 [id number] 179 [id number] [facility] 2020-12-30 10:40:00 2020-12-30 10:40:00 Outpatient SANJUANA MARTINEZ [facility] [id number] [facility] 2020-12-28 13:22:38 2020-12-28 14:30:36 Office Visit Juanito Fu [facility] 1.2.840.114 350.1.13.10 4.2.7.2.686 [id number] [facility] 2020-12-28 13:30:00 2020-12-28 13:30:00 Outpatient JUANITO BURTON [facility] [id number] [facility] 2020-12-21 10:08:34 2020-12-21 10:36:53 Office Visit Cristina Bustillos [facility] 1..840.114 350.1.13.10 4.2.7.2.686 [id number] [facility] 2020-12-21 10:00:00 2020-12-21 10:00:00 Outpatient R CRISTINA BUSTILLOS [facility] [id number] [facility] 2020-12-02 09:14:21 2020-12-02 10:01:44 Ancillary Visit Leigh Ann Meerdith Craig L [facility] 1.2840.114 350.1.13.10 4.2.7.2.686 [id number] 179 [id number] [facility] 2020-11-25 09:52:07 2020-11-25 10:52:07 Ancillary Visit Leigh Ann Meredith Craig [facility] 1.20.114 350.1.13.10 4.2.7.2.686 [id number] 179 [id number] [facility] 2020-11-25 10:00:00 2020-11-25 10:00:00 Outpatient Noman SANJUANA BARBOSA [facility] [id number] [facility] 2020-11-19 09:00:00 2020-11-19 10:15:00 Surgery Cristina Bustillos [facility] 1.0.114 350.1.13.10 4.2.7.2.686 [id number] [facility] 2020-11-19 07:22:00 2020-11-19 09:59:00 Hospital Encounter Cristina Bustillos [facility] 1.20.114 350.1.13.10 4.2.7.2.686 [id number] [facility] 2020-11-19 00:00:00 2020-11-19 00:00:00 Orders Only Doctor Unassigned, Huson [facility] 1.2840.114 350.1.13.10 4.2.7.2.686 [id number] [facility] 2020-11-17 10:50:18 2020-11-17 11:56:33 Ancillary Visit Leigh Ann Meredith Kristina [facility] Professio nal Building 1.2840.114 350.1.13.10 4.2.7.2.686 [id number] 179 [id number] [facility] 2020-11-16 14:10:57 2020-11-16 15:20:38 Office Visit Deannareji Juanito Travis [facility] Building 1.2840.114 350.1.13.10 4.2.7.2.686 [id number] 201 [id number] [facility] 2020-11-16 14:15:00 2020-11-16 14:15:00 Outpatient R JUANITO UF [facility] [id number] [facility] 2020-11-16 08:04:24 2020-11-16 08:19:24 Laboratory Only Only, Adc Test [facility] 1.284.114 350.1.13.10 4.2.7.2.686 [id number] [facility] 2020-11-12 09:16:21 2020-11-12 10:25:57 Ancillary Visit Leigh Ann Meredith Kristina [facility] Building 1.2840.114 350.1.13.10 4.2.7.2.686 [id number] [facility] 2020-11-12 09:20:00 2020-11-12 09:20:00 Outpatient R [facility] [id number] [facility] 2020-11-04 09:54:47 2020-11-04 13:06:31 Ancillary Visit Leigh Ann Meredith Kristina [facility] Building 1.2840.114 350.1.13.10 4.2.7.2.686 [id number] [facility] 2020-11-02 14:11:34 2020-11-02 15:34:02 Office Visit Nickie Juanito Thaddeus [facility] 1.2840.114 350.1.13.10 4.2.7.2.686 [id number] [facility] 2020-11-02 14:15:00 2020-11-02 14:15:00 Outpatient R JUANITO FU [facility] [id number] [facility] 2020-10-27 10:25:52 2020-10-27 11:28:28 Office Visit Vianey Sheriff [facility] [place] [facility] 1.2840.114 350.1.13.10 4.2.7.2.686 [id number] 201 [id number] [facility] 2020-10-27 10:30:00 2020-10-27 10:30:00 Outpatient R VIANEY SHERIFF [facility] [id number] [facility] 2020-10-25 00:00:00 2020-10-25 00:00:00 Patient Secure Msg Doctor Unassigned, Huson [facility] 1.2.114 350.1.13.10 4.2.7.2.686 [id number] [facility] 2020-10-21 10:58:32 2020-10-21 13:03:38 Ancillary Visit Leigh Ann Meredith Craig L [facility] 1.2840.114 350.1.13.10 4.2.7.2.686 [id number] 179 [id number] [facility] 2020-10-19 14:31:52 2020-10-19 16:31:52 Office Visit Cristina Bustillos [facility] 1.2.840.114 350.1.13.10 4.2.7.2.686 [id number] [facility] 2020-10-19 16:00:00 2020-10-19 16:00:00 Outpatient Noman TRESSACRISTINA [facility] [id number] [facility] 2020-10-15 10:26:20 2020-10-15 11:28:35 Ancillary Visit Leigh Ann Meredith Craig L [facility] Building 1.2840.114 350.1.13.10 4.2.7.2.686 [id number] [facility] 2020-10-08 10:53:44 2020-10-08 11:55:06 Ancillary Visit Leigh Ann Meredith Craig L [facility] Building 1.840.114 350.1.13.10 4.2.7.2.686 [id number] [facility] 2020-10-07 00:00:00 2020-10-07 00:00:00 Telephone Lc [facility] Office Building One 1..114 350.1.13.10 4.2.7.2.686 [id number] 044 [id number] [facility] 2020-10-06 08:53:54 2020-10-06 09:29:29 Wound Care Nurse Visit Lab, [facility] Pob I Lc [facility] Office Building One 1..114 350.1.13.10 4.2.7.2.686 [id number] [facility] 2020-10-06 08:22:38 2020-10-06 09:28:38 Office Visit Lc [facility] Office Building One 1..114 350.1.13.10 4.2.7.2.686 [id number] [facility] 2020-10-06 08:30:00 2020-10-06 08:30:00 Outpatient R LAKSHMI PLATT [facility] [id number] [facility] 2020-10-01 10:39:25 2020-10-01 11:45:15 Ancillary Visit [facility] 1.2.840.114 350.1.13.10 4.2.7.2.686 [id number] 179 [id number] [facility] 2020-09-24 10:44:30 2020-09-24 11:55:55 Ancillary Visit Leigh Ann Meredith [facility] 1.2.840.114 350.1.13.10 4.2.7.2.686 [id number] 179 [id number] [facility] 2020-09-24 10:44:30 2020-09-24 11:55:55 Ancillary Visit Leigh Ann Meredith Craig L [facility] Building 1.2.840.114 350.1.13.10 4.2.7.2.686 [id number] [facility] 2020-09-24 10:40:00 2020-09-24 10:40:00 Outpatient R [facility] [id number] [facility] 2020-09-24 00:00:00 2020-09-24 00:00:00 Patient Secure Msg Lakshmi Platt [facility] OFFICE BUILDING ONE 1.2.840.114 350.1.13.10 4.2.7.2.686 [id number] [facility] 2020-09-20 08:35:00 2020-09-20 08:35:00 Outpatient [facility] [id number] [facility] 2020-09-15 13:03:48 2020-09-15 14:46:03 Ancillary Visit Leigh Ann Meredith Craig L [facility] Building 1.2.840.114 350.1.13.10 4.2.7.2.686 [id number] [facility] 2020-09-10 10:48:56 2020-09-10 12:01:13 Ancillary Visit Leigh Ann Meredith Craig L [facility] Building 1.2.840.114 350.1.13.10 4.2.7.2.686 [id number] [facility] 2020-08-31 00:00:00 2020-08-31 00:00:00 Refill LcLakshmi [facility] Office Building One 1.2.840.114 350.1.13.10 4.2.7.2.686 [id number] [facility] 2020-08-27 13:07:37 2020-08-27 14:16:40 Ancillary Visit Leigh Ann Meredith Craig L [facility] Building 1.2.840.114 350.1.13.10 4.2.7.2.686 [id number] 179 [id number] [facility] 2020-08-27 13:00:00 2020-08-27 13:00:00 Outpatient R SANJUANA BARBOSA [facility] [id number] [facility] 2020-08-23 08:25:00 2020-08-23 08:25:00 Outpatient [facility] [id number] [facility] 2020-08-20 09:02:47 2020-08-20 10:09:00 Ancillary Visit Leigh Ann Meredith Craig L [facility] Building 1.2.840.114 350.1.13.10 4.2.7.2.686 [id number] [facility] 2020-08-06 09:04:05 2020-08-06 10:30:30 Ancillary Visit Leigh Ann [facility]eredith [facility] 1.2.840.114 350.1.13.10 4.2.7.2.686 [id number] 179 [id number] [facility] 2020-08-05 10:40:00 2020-08-05 10:40:00 Outpatient [facility] [id number] [facility] 2020-07-22 13:42:22 2020-07-22 14:54:41 Ancillary Visit Leigh Ann Meredith Brian A [facility] Building 1.2.840.114 350.1.13.10 4.2.7.2.686 [id number] 179 [id number] [facility] 2020-07-15 09:58:49 2020-07-15 11:06:00 Ancillary Visit Leigh Ann Meredith Kristina [facility] Building 1.2.840.114 350.1.13.10 4.2.7.2.686 [id number] [facility] 2020-07-08 13:51:34 2020-07-08 15:21:34 Ancillary Visit Leigh Ann Meredith Kristina [facility] Building 1.2.840.114 350.1.13.10 4.2.7.2.686 [id number] 179 [id number] [facility] 2020-07-02 10:12:04 2020-07-02 16:55:17 Ancillary Visit Leigh Ann Meredith Craig L [facility] Building 1.2.840.114 350.1.13.10 4.2.7.2.686 [id number] [facility] 2020-07-02 10:12:04 2020-07-02 16:55:17 Ancillary Visit Leigh Ann Meredith Craig L [facility] Building 1.2.840.114 350.1.13.10 4.2.7.2.686 [id number] [facility] 2020-07-02 10:20:00 2020-07-02 10:20:00 Outpatient R SANJUANA BARBOSA [facility] [id number] [facility] 2020-06-23 00:00:00 2020-06-23 00:00:00 Telephone Gia Carlos [facility] 1.2.840.114 350.1.13.10 4.2.7.2.686 [id number] 201 [id number] [facility] 2020-06-16 13:08:40 2020-06-16 14:38:40 Ancillary Visit Leigh Ann Meredith Craig L [facility] Building 1.2.840.114 350.1.13.10 4.2.7.2.686 [id number] [facility] 2020-06-11 10:03:40 2020-06-11 11:16:12 Ancillary Visit Navi Sheth Craig L [facility] Building 1.2.840.114 350.1.13.10 4.2.7.2.686 [id number] 179 [id number] [facility] 2020-06-04 09:57:20 2020-06-04 10:57:20 Ancillary Visit Naiv Sheth Brittany [facility] Building [id number] 350.1.13.10 4.2.7.2.686 [id number] [facility] 2020-05-28 10:43:09 2020-05-28 11:43:09 Ancillary Visit Leigh Ann Meredith [facility] 1.2.840.114 350.1.13.10 4.2.7.2.686 [id number] 179 [id number] 2020-05-28 10:43:09 2020-05-28 11:43:09 Ancillary Visit Leigh Ann MeredithefLakshmi hill [facility] 1.2.840.114 350.1.13.10 4.2.7.2.686 [id number] [facility] 2020-05-28 10:40:00 2020-05-28 10:40:00 [facility] [id number] 2020-05-19 09:48:16 2020-05-19 11:08:16 Ancillary Visit Ro [facility]bayo [facility] 1.2.840.114 350.1.13.10 4.2.7.2.686 [id number] 179 [id number] [facility] 2020-05-14 09:51:21 2020-05-14 11:11:21 Ancillary Visit Leigh Ann Meredith Craig L [facility] Building 1.2.840.114 350.1.13.10 4.2.7.2.686 [id number] 179 [id number] [facility] 2020-05-08 11:01:22 2020-05-08 14:13:10 Ancillary Visit Leigh Ann Meredith Craig L [facility] Building 1.2.840.114 350.1.13.10 4.2.7.2.686 [id number] [facility] 2020-04-29 13:40:29 2020-04-29 15:00:29 Ancillary Visit Leigh Ann Meredith Craig L [facility] Building 1.2.840.114 350.1.13.10 4.2.7.2.686 [id number] 179 [id number] [facility] 2020-04-29 13:40:00 2020-04-29 13:40:00 Outpatient R SANJUANA BARBOSA [facility] [id number] [facility] 2020-04-23 11:55:21 2020-04-23 13:15:21 Ancillary [facility] 1.2.840.114 350.1.13.10 4.2.7.2.686 [id number] 179 [id number] [facility] 2020-04-15 08:46:44 2020-04-15 10:06:44 Ancillary Visit [facility] 1.2.840.114 350.1.13.10 4.2.7.2.686 [id number] 179 [id number] [facility] 2020-04-09 10:05:17 2020-04-09 11:25:17 Ancillary Visit Leigh Ann Meredith Craig L [facility] Building 1.2.840.114 350.1.13.10 4.2.7.2.686 [id number] [facility] 2020-04-02 10:05:41 2020-04-02 11:25:41 Ancillary Visit Leigh Ann Meredith Craig [facility] 1.2.840.114 350.1.13.10 4.2.7.2.686 [id number] [facility] 2020-03-26 09:51:23 2020-03-26 11:11:23 Ancillary Visit Leigh Ann Meredith Craig [facility] 1.2.840.114 350.1.13.10 4.2.7.2.686 [id number] 179 [id number] [facility] 2020-03-26 10:00:00 2020-03-26 10:00:00 Outpatient R [facility] [id number] [facility] 2020-03-24 10:15:31 2020-03-24 11:10:50 Office Visit Vianey Sheriff [facility] 1.2840.114 350.1.13.10 4.2.7.2.686 [id number] 201 [id number] [facility] 2020-03-24 10:30:00 2020-03-24 10:30:00 Outpatient R VIANEY SHERIFF [facility] [id number] [facility] 2020-03-20 15:23:49 2020-03-20 16:43:49 Ancillary Visit Leigh Ann Meredith Craig L [facility] 1.2.840.114 350.1.13.10 4.2.7.2.686 [id number] 179 [id number] [facility] 2020-03-17 09:00:00 2020-03-17 09:00:00 Outpatient R VIANEY SHERIFF [facility] [id number] [facility] 2020-03-13 14:20:21 2020-03-13 15:20:21 Ancillary Visit Leigh Ann Meredith Craig L [facility] 1.2840.114 350.1.13.10 4.2.7.2.686 [id number] 179 [id number] [facility] 2020-03-10 09:03:29 2020-03-10 09:54:36 Office Visit Vianey Sheriff [facility] 1.2840.114 350.1.13.10 4.2.7.2.686 [id number] 201 [id number] [facility] 2020-03-10 09:00:00 2020-03-10 09:00:00 Outpatient R VIANEY SHERIFF [facility] [id number] [facility] 2020-03-05 10:04:33 2020-03-05 11:04:33 Ancillary Visit Leigh Ann Meredith Brittany [facility] Building 1.2840.114 350.1.13.10 4.2.7.2.686 [id number] 179 [id number] [facility] 2020-03-03 08:54:58 2020-03-03 09:56:20 Office Visit Vianey Sheriff [facility] 1.20.114 350.1.13.10 4.2.7.2.686 [id number] 201 [id number] [facility] 2020-03-03 09:00:00 2020-03-03 09:00:00 Outpatient VIANEY CEVALLOS [facility] [id number] [facility] 2020-02-26 09:28:00 2020-02-26 10:28:00 Ancillary Visit Leigh Ann Meredith Vicki S [facility] Building 1.284.114 350.1.13.10 4.2.7.2.686 [id number] [facility] 2020-02-26 09:20:00 2020-02-26 09:20:00 Outpatient EDITH JOSEPH [facility] [id number] [facility] 2020-02-16 00:00:00 2020-02-16 00:00:00 Patient Secure Msg Doctor Unassigned, Huson [facility] 1.2.114 350.1.13.10 4.2.7.2.686 [id number] [facility] 2020-02-06 13:04:57 2020-02-06 16:43:54 Ancillary Visit Leigh Ann Meredith Craig L [facility] Building 1.2840.114 350.1.13.10 4.2.7.2.686 [id number] [facility] 2020-02-06 10:20:00 2020-02-06 10:20:00 Outpatient R [facility] [id number] [facility] 2020-01-30 10:06:12 2020-01-30 11:36:12 Ancillary Visit Leigh Ann Meredith Craig L [facility] Building 1.114 350.1.13.10 4.2.7.2.686 [id number] 179 [id number] [facility] 2020-01-26 00:00:00 2020-01-26 00:00:00 Patient Secure Msg Doctor Unassigned, Huson [facility] 1.114 350.1.13.10 4.2.7.2.686 [id number] [facility] 2020-01-24 08:06:37 2020-01-24 09:02:16 Urgent Care Pob1, Acute Care Clinic Joana Bennett [facility] Office Building One 1.114 350.1.13.10 4.2.7.2.686 [id number] [facility] 2020-01-24 08:00:00 2020-01-24 08:00:00 Outpatient R [facility] [id number] [facility] 2020-01-24 00:00:00 2020-01-24 00:00:00 Letter (Out) Doctor Unassigned, Huson [facility] 1.114 350.1.13.10 4.2.7.2.686 [id number] [facility] 2020-01-24 00:00:00 2020-01-24 00:00:00 Refill Ирина Chapman [facility] Office Building One 1.114 350.1.13.10 4.2.7.2.686 [id number] [id number] [facility] 2020-01-22 13:41:00 2020-01-22 15:11:00 Ancillary Visit Leigh Ann Meredith Craig L [facility] Building 1.2.840.114 350.1.13.10 4.2.7.2.686 [id number] [facility] 2019-12-11 16:22:34 2020-01-17 16:04:46 Ancillary Visit Leigh Ann Meredith Craig L [facility] Building 1.2.840.114 350.1.13.10 4.2.7.2.686 [id number] [facility] 2020-01-15 10:43:23 2020-01-15 11:43:23 Ancillary Visit Leigh Ann Meredith Craig L [facility] Building 1.2.840.114 350.1.13.10 4.2.7.2.686 [id number] [facility] 2020-01-08 13:04:57 2020-01-08 14:04:57 Ancillary Visit Leigh Ann Meredith Charanjit BarbosaSanjuana [facility] Building 1.2.840.114 350.1.13.10 4.2.7.2.686 [id number] 179 [id number] [facility] 2020-01-01 13:43:13 2020-01-01 14:43:13 Ancillary Visit Leigh Ann Meredith Vicki S [facility] Building 1.2.840.114 350.1.13.10 4.2.7.2.686 [id number] [facility] 2019-12-26 15:49:16 2019-12-26 16:29:16 Ancillary Visit Leigh Ann Meredith Vicki S [facility] Building 1.2.840.114 350.1.13.10 4.2.7.2.686 [id number] [facility] 2019-12-26 15:10:00 2019-12-26 15:10:00 Outpatient R [facility] [id number] [facility] 2019-12-17 15:40:04 2019-12-17 16:40:04 Ancillary Visit Leigh Ann Meredith Vicki S [facility] Gilson Shankar [facility] 1.84.114 350.1.13.10 4.2.7.2.686 [id number] 179 [id number] [facility] 2019-12-11 14:20:00 2019-12-11 14:20:00 Outpatient R SANJUANA BARBOSA [facility] [id number] [facility] 2019-12-11 00:00:00 2019-12-11 00:00:00 Orders Only Doctor Unassigned, Huson [facility] 1.84.114 350.1.13.10 4.2.7.2.686 [id number] [facility] 2019-11-28 08:17:10 2019-11-28 09:22:57 Office Visit Vianey Sheriff [facility] 1.840.114 350.1.13.10 4.2.7.2.686 [id number] 201 [id number] [facility] 2019-11-28 09:00:00 2019-11-28 09:00:00 Outpatient R VIANEY SHERIFF [facility] [id number] [facility] 2019-11-26 09:30:00 2019-11-26 09:30:00 Outpatient GIA JAMISON [facility] [id number] [facility] 2019-11-25 00:00:00 2019-11-25 00:00:00 Telephone Gia Carlos [facility] 1.840.114 350.1.13.10 4.2.7.2.686 [id number] 201 [id number] [facility] 2019-11-19 00:00:00 2019-11-19 00:00:00 Orders Only Doctor Unassigned, Huson [facility] 1.2840.114 350.1.13.10 4.2.7.2.686 [id number] [facility] 2019-11-01 08:06:11 2019-11-01 09:06:11 Ancillary Visit Leigh Ann Meredith Craig L [facility] Building 1.2.840.114 350.1.13.10 4.2.7.2.686 [id number] [facility] 2019-11-01 08:00:00 2019-11-01 08:00:00 Outpatient R SANJUANA BARBOSA [facility] [id number] [facility] 2019-10-23 10:00:00 2019-10-23 11:00:00 Ancillary Visit Leigh Ann Meredith Craig L [facility] Building 1.2840.114 350.1.13.10 4.2.7.2.686 [id number] [facility] 2019-10-16 09:58:30 2019-10-16 12:01:19 Ancillary Visit Leigh Ann Meredith Craig L [facility] Building 1.2840.114 350.1.13.10 4.2.7.2.686 [id number] [facility] 2019-10-13 00:00:00 2019-10-13 00:00:00 [facility] 1.2840.114 350.1.13.10 4.2.7.2.686 [id number] [facility] 2019-10-11 10:12:00 2019-10-11 10:21:42 Nurse Visit [facility] Building 1.2840.114 350.1.13.10 4.2.7.2.686 [id number] [facility] 2019-10-11 10:15:00 2019-10-11 10:15:00 Outpatient R [facility] [id number] [facility] 2019-10-11 00:00:00 2019-10-11 00:00:00 Telephone Ashwini Peterson [facility] 1.0.114 350.1.13.10 4.2.7.2.686 [id number] [facility] 2019-10-09 09:58:06 2019-10-09 10:58:06 Ancillary Visit Leigh Ann Meredith Craig L [facility] Building 1.2.114 350.1.13.10 4.2.7.2.686 [id number] [facility] 2019-10-02 10:06:25 2019-10-02 11:37:31 Ancillary Visit Leigh Ann Meredith Craig L [facility] 1.20.114 350.1.13.10 4.2.7.2.686 [id number] 179 [id number] [facility] 2019-10-01 00:00:00 2019-10-01 00:00:00 Orders Only Doctor Unassigned, Huson [facility] 1.114 350.1.13.10 4.2.7.2.686 [id number] [facility] 2019-09-26 11:00:00 2019-09-26 11:00:00 Outpatient R [facility] [id number] [facility] 2019-09-26 08:30:00 2019-09-26 08:30:00 Outpatient R JANETTE STONE [facility] [id number] [facility] 2019-09-25 09:56:39 2019-09-25 10:56:39 Ancillary Visit Leigh Ann Meredith Craig L [facility] Building 1.2.840.114 350.1.13.10 4.2.7.2.686 [id number] [facility] 2019-09-24 09:30:00 2019-09-24 09:30:00 Outpatient GIA JAMISON [facility] [id number] [facility] 2019-09-18 09:54:45 2019-09-18 10:54:45 Ancillary Visit Leigh Ann Meredith Craig L [facility] Building 1.2.840.114 350.1.13.10 4.2.7.2.686 [id number] [facility] 2019-09-12 13:24:42 2019-09-12 13:37:29 Ancillary Visit Leigh Ann Meredith Craig L [facility] Building 1.2.840.114 350.1.13.10 4.2.7.2.686 [id number] [facility] 2019-08-22 10:17:35 2019-09-11 14:27:23 Ancillary Visit Leigh Ann Meredith Craig L [facility] Building 1.2.840.114 350.1.13.10 4.2.7.2.686 [id number] [facility] 2019-09-05 13:07:27 2019-09-05 14:07:27 Ancillary Visit Leigh Ann Meredith Craig L [facility] Building 1.2.840.114 350.1.13.10 4.2.7.2.686 [id number] [facility] 2019-08-29 10:20:31 2019-08-29 11:20:31 Ancillary Visit Leigh Ann Meredith Craig L [facility] Building 1.2.840.114 350.1.13.10 4.2.7.2.686 [id number] [facility] 2019-08-29 10:20:00 2019-08-29 10:20:00 Outpatient SANJUANA MARTINEZ [facility] [id number] [facility] 2019-08-22 10:20:00 2019-08-22 10:20:00 Outpatient SANJUANA MARTINEZ [facility] [id number] [facility] 2019-08-01 15:07:11 2019-08-16 09:11:41 Ancillary Visit Leigh Ann Meredith BarbosaArieig [facility] nal Building 1.2840.114 350.1.13.10 4.2.7.2.686 [id number] [facility] 2019-08-15 10:27:01 2019-08-15 11:27:01 Ancillary Visit [facility] 1.2840.114 350.1.13.10 4.2.7.2.686 [id number] 179 [id number] [facility] 2019-07-25 14:45:00 2019-07-25 14:45:00 Outpatient SANJUANA MARTINEZ [facility] [id number] [facility] 2019-07-23 09:24:56 2019-07-23 17:15:16 Office Visit Gia Carlos [facility] 1.2840.114 350.1.13.10 4.2.7.2.686 [id number] 201 [id number] [facility] 2019-07-18 14:38:24 2019-07-18 17:09:27 Ancillary Visit Leigh Ann MeredithSanjuana [facility] Building 1.2.84.114 350.1.13.10 4.2.7.2.686 [id number] [facility] 2019-07-11 15:10:59 2019-07-11 16:10:59 Ancillary Visit Leigh Ann Meredith Craig L [facility] 1.2840.114 350.1.13.10 4.2.7.2.686 [id number] 179 [id number] [facility] 2019-06-16 09:31:44 2019-06-17 15:40:00 Outpatient X KEMI LIZARRAGA [facility] [id number] [facility] 2019-03-14 10:02:33 2019-03-14 11:02:33 Ancillary Visit Leigh Ann Meredith Craig L [facility] 1.2840.114 350.1.13.10 4.2.7.2.686 [id number] 179 [id number] [facility] 2019-03-14 00:00:00 2019-03-14 00:00:00 Telephone Gia Carlos [facility] [place] [facility] 1.2.840.114 350.1.13.10 4.2.7.2.686 [id number] 201 [id number] [facility] 2019-03-12 09:57:27 2019-03-12 17:08:32 Office Visit Gia Carlos [facility] [place] [facility] 1.2840.114 350.1.13.10 4.2.7.2.686 [id number] 201 [id number] [facility] 2019-03-07 14:18:19 2019-03-08 09:58:11 Ancillary Visit Leigh Ann Meredith Craig L [facility] 1.2.840.114 350.1.13.10 4.2.7.2.686 [id number] 179 [id number] [facility] 2019-03-07 00:00:00 2019-03-07 00:00:00 Telephone Gia Carlos [facility] [place] [facility] 1.2840.114 350.1.13.10 4.2.7.2.686 [id number] 201 [id number] [facility] 2019-03-05 10:08:27 2019-03-05 18:33:46 Office Visit Gia Carlos [facility] [place] [facility] 1.2.840.114 350.1.13.10 4.2.7.2.686 [id number] 201 [id number] [facility] 2019-03-01 10:14:29 2019-03-01 11:41:51 Ancillary Visit Leigh Ann Meredith Craig L [facility] 1.2.840.114 350.1.13.10 4.2.7.2.686 [id number] [facility] 2019-02-28 00:00:00 2019-02-28 00:00:00 Telephone Vianey Sheriff [facility] [place] [facility] 1.2.840.114 350.1.13.10 4.2.7.2.686 [id number] 201 [id number] [facility] 2019-02-27 13:01:26 2019-02-27 13:46:26 Ancillary Visit Leigh Ann Meredith Craig L [facility] 1.2.840.114 350.1.13.10 4.2.7.2.686 [id number] [facility] 2019-02-26 10:26:08 2019-02-26 20:10:09 Office Visit Gia Carlos [facility] [place] [facility] 1.2.840.114 350.1.13.10 4.2.7.2.686 [id number] 201 [id number] [facility] 2019-02-26 12:43:19 2019-02-26 12:58:19 Wound Care Nurse Visit Vls-Lab Gia Carlos [facility] [place] [facility] 1.2.840.114 350.1.13.10 4.2.7.2.686 [id number] [facility] 2019-02-21 15:03:43 2019-02-21 17:11:51 Ancillary Visit Navi Sheth Craig L [facility] 1.2.840.114 350.1.13.10 4.2.7.2.686 [id number] 179 [id number] [facility] 2019-02-20 00:00:00 2019-02-20 00:00:00 Orders Only Doctor Unassigned, Huson [facility] 1.2.840.114 350.1.13.10 4.2.7.2.686 [id number] [facility] 2019-02-19 10:26:26 2019-02-19 19:50:04 Office Visit Gia Carlos [facility] 1.840.114 350.1.13.10 4.2.7.2.686 [id number] 201 [id number] [facility] 2019-02-14 00:00:00 2019-02-14 00:00:00 Transition of Care Nevin Tubbs 1.2.840.114 350.1.13.10 4.2.7.2.686 [id number] [facility] 2019-02-11 05:21:00 2019-02-13 14:13:00 Hospital Encounter Gia Carlos [facility] 1.2.840.114 350.1.13.10 4.2.7.2.686 [id number] 111 [id number] [facility] 2019-02-13 00:00:00 2019-02-13 00:00:00 Case Management Vianey Sheriff [facility] [place] [facility] 1.2.840.114 350.1.13.10 4.2.7.2.686 [id number] 201 [id number] [facility] 2019-02-11 00:00:00 2019-02-11 00:00:00 Orders Only Doctor Unassigned, Huson [facility] 1.2.840.114 350.1.13.10 4.2.7.2.686 [id number] [facility] 2019-02-07 13:17:31 2019-02-07 14:51:31 Ancillary Visit Leigh Ann Meredith Craig L [facility] 1.2.840.114 350.1.13.10 4.2.7.2.686 [id number] [facility] 2019-02-05 00:00:00 2019-02-05 00:00:00 Telephone Gia Carlos [facility] [place] [facility] 1.2.840.114 350.1.13.10 4.2.7.2.686 [id number] 201 [id number] [facility] 2019-01-31 13:10:43 2019-01-31 16:41:35 Ancillary Visit Leigh Ann Meredith Craig L [facility] 1.2.840.114 350.1.13.10 4.2.7.2.686 [id number] [facility] 2019-01-31 00:00:00 2019-01-31 00:00:00 Telephone Vianey Sheriff [facility] [place] [facility] 1.2.840.114 350.1.13.10 4.2.7.2.686 [id number] 201 [id number] [facility] 2019-01-29 07:55:25 2019-01-29 18:43:35 Office Visit Gia Carlos [facility] [place] [facility] 1.2.840.114 350.1.13.10 4.2.7.2.686 [id number] 201 [id number] [facility] 2019-01-29 14:14:30 2019-01-29 14:29:30 Wound Care Nurse Visit 1, Adc Lab Gia Carlos [facility] 1.2.840.114 350.1.13.10 4.2.7.2.686 [id number] [facility] 2019-01-29 12:54:17 2019-01-29 13:09:17 Office Visit Edith Stacy [facility] 1.2.840.114 350.1.13.10 4.2.7.2.686 [id number] [facility] 2019-01-24 13:02:16 2019-01-24 15:08:20 Ancillary Visit Leigh Ann Meredith Craig L [facility] 1.2.840.114 350.1.13.10 4.2.7.2.686 [id number] 179 [id number] [facility] 2019-01-22 10:12:15 2019-01-22 11:44:57 Ancillary Visit MasoudLeigh Ann Craig L [facility] 1.2.840.114 350.1.13.10 4.2.7.2.686 [id number] 179 [id number] [facility] 2019-01-18 10:14:44 2019-01-18 11:24:31 Ancillary Visit MasoudLeigh Ann Craig L [facility] 1.2.840.114 350.1.13.10 4.2.7.2.686 [id number] 179 [id number] [facility] Results Test Description Test Time Test Comments Results Result Comments Source XR FOOT 3+ VW RIGHT 2024-04 20:03:3 6 XR FOOT 3+ VW RIGHT HISTORY: ?pain due to injury COMPARISON: ?none available. [facility] XR CHEST 2 VW 2024-01 03:31:0 0 Ordering physician: VENKATA EMERSON Indication: Fever, cough and wheezing Comparison: None Technical quality: Adequate Findings: PA and lateral views of the chest. The cardiopericardialsilhouette is within normal limits. There is thickening of the rubin of thecentral airways. The visualized bony thorax is intact. [facility] PHYSICIAN ORDERS 2023-09 12:16:3 2 Ordered by an unspecified provider. [facility] REFERRAL- REQUEST/RESPON SE 2023-09 21:03:1 6 Ordered by an unspecified provider. [facility] ([facility]69[facility]2023-09-29 20:22:41* Test Item Value Reference Range Interpretation Comme nts NA (test code = 0704474407) 139 mmol/L 135-145 K (test code = 3381305028) 3.9 mmol/L 3.5-5.0 CL (test code = 5299607440) 103 mmol/L 98-108 CO2 TOTAL (test code = 5146496749) 29 mmol/L 23-31 AGAP (test code = 5618175516) 7 2-16 BUN (test code = 1633499928) 13 mg/dL 7-23 GLUCOSE (test code = 8189467053) 90 mg/dL 70-110 CREATININE (test code = 2160-0) 0.98 mg/dL 0.60-1.25 TOTAL BILI (test code = 7982807749) 0.7 mg/dL 0.1-1.1 CALCIUM (test code = 1321062500) 8.6 mg/dL 8.6-10.6 T PROTEIN (test code = 5161164522) 8.8 g/dL 6.3-8.2 H ALBUMIN (test code = 5696493516) 3.8 g/dL 3.5-5.0 ALK PHOS (test code = 1057426664) 72 U/L 34-122 ALTv (test code = 1742-6) 15 U/L 5-50 AST(SGOT) (test code = 7323470001) 48 U/L 13-40 H eGFR (test code = 63568-7) 91.1 mL/min/1.73m2 CKD-EPI eGFR (2020). Assuming creatinine has been stable day-to-day for at least three months, the eGFR indicates Category G1 (>= 90 mL/min/1.73 m2) Lab Interpretation (test code = 42761-3) Abnormal [facility] with [id number] 19:32:30* Test Item Value Reference Range Interpretation Comme nts WBC (test code = 6690-2) 7.97 4.20-10.70 RBC (test code = 789-8) 4.57 4.26-5.52 HGB (test code = 718-7) 12.0 g/dL 12.2-16.4 L HCT (test code = 4544-3) 39.0 % 38.4-49.3 MCV (test code = 787-2) 85.3 fL 81.7-95.6 MCH (test code = 785-6) 26.3 pg 26.1-32.7 MCHC (test code = 786-4) 30.8 g/dL 31.2-35.0 L RDW-SD (test code = 37992-5) 52.8 fL 38.5-51.6 H RDW-CV (test code = 788-0) 17.2 % 12.1-15.4 H PLT (test code = 777-3) 341 150-328 H MPV (test code = 45136-0) 9.9 fL 9.8-13.0 NRBC/100 WBC (test code = 8164429820) 0.0 0.0-10.0 NRBC x10^3 (test code = 3787842436) See_Comment [Automated messa ge] The system which generated this result transmitted reference range: 10*3/?L. The reference range was not used to interpret this result as normal/abnormal. GRAN MAT (NEUT) % (test code = 770-8) 62.5 % IMM GRAN % (test code = 3836219949) 0.40 % LYMPH % (test code = 736-9) 24.2 % MONO % (test code = 5905-5) 5.5 % EOS % (test code = 713-8) 6.4 % BASO % (test code = 706-2) 1.0 % GRAN MAT x10^3(ANC) (test code = 9131117365) 4.98 10*3/uL 1.99-6.95 IMM GRAN x10^3 (test code = 7672782368) 0.03 10*3/uL 0.00-0.06 LYMPH x10^3 (test code = 731-0) 1.93 10*3/uL 1.09-3.23 MONO x10^3 (test code = 742-7) 0.44 10*3/uL 0.36-1.02 EOS x10^3 (test code = 711-2) 0.51 10*3/uL 0.06-0.53 BASO x10^3 (test code = 704-7) 0.08 10*3/uL 0.01-0.09 Lab Interpretation (test code = 48272-6) Abnormal [facility] with [id number] 19:32:30* Test Item Value Reference Range Interpretation Comme nts WBC (test code = 6690-2) 7.97 4.20-10.70 RBC (test code = 789-8) 4.57 4.26-5.52 HGB (test code = 718-7) 12.0 g/dL 12.2-16.4 L HCT (test code = 4544-3) 39.0 % 38.4-49.3 MCV (test code = 787-2) 85.3 fL 81.7-95.6 MCH (test code = 785-6) 26.3 pg 26.1-32.7 MCHC (test code = 786-4) 30.8 g/dL 31.2-35.0 L RDW-SD (test code = 56513-4) 52.8 fL 38.5-51.6 H RDW-CV (test code = 788-0) 17.2 % 12.1-15.4 H PLT (test code = 777-3) 341 150-328 H MPV (test code = 60440-1) 9.9 fL 9.8-13.0 NRBC/100 WBC (test code = 9810997048) 0.0 0.0-10.0 NRBC x10^3 (test code = 6853557007) See_Comment [Automated messa ge] The system which generated this result transmitted reference range: 10*3/?L. The reference range was not used to interpret this result as normal/abnormal. GRAN MAT (NEUT) % (test code = 770-8) 62.5 % IMM GRAN % (test code = 4752715927) 0.40 % LYMPH % (test code = 736-9) 24.2 % MONO % (test code = 5905-5) 5.5 % EOS % (test code = 713-8) 6.4 % BASO % (test code = 706-2) 1.0 % GRAN MAT x10^3(ANC) (test code = 1902963699) 4.98 10*3/uL 1.99-6.95 IMM GRAN x10^3 (test code = 7049256312) 0.03 10*3/uL 0.00-0.06 LYMPH x10^3 (test code = 731-0) 1.93 10*3/uL 1.09-3.23 MONO x10^3 (test code = 742-7) 0.44 10*3/uL 0.36-1.02 EOS x10^3 (test code = 711-2) 0.51 10*3/uL 0.06-0.53 BASO x10^3 (test code = 704-7) 0.08 10*3/uL 0.01-0.09 Lab Interpretation (test code = 38998-6) [facility]normal [facility] [id number] 13:54:23 Ordered by an unspecified provider.[facility]YSICIAN [id number] 12:52:22Ordered by an unspecified provider.[facility]XR ELBOW 3+ VW [id number] 01:28:51EXAM: XR ELBOW 3+ VW RIGHT HISTORY: right elbow fx ? COMPARISON: Radiographs from 07/31/2023 FINDINGS: Redemonstration of chronic chronic olecranon avulsion fracture with softtissue swelling at the level of the triceps tendon. Hypertrophic changes atthe lateral epicondyle of the distal humerus. The joint spaces aremaintained. Medial elbow soft tissue swelling.[facility] SouthC-Reactive Protein 2023-08-01 16:56:44* Test Item Value Reference Range Interpretation Comme nts CRP (test code = 5788299961) 10.0 mg/dL <=0.8 H Lab Interpretation (test cod e = 90561-3) Abnormal [facility] EL[facility]OW [facility]+ VW [id number] 15:07:59EXAM: XR ELBOW 3+ VW RIGHT HISTORY: right elbow pain and swelling, decreased ROM, no known injury COMPARISON: None] available FINDINGS: Radiographs of the right elbow demonstrate chronic appearing olecranonavulsion fracture with soft tissue swelling at the level of the tricepstendon. The joint spaces are maintained. Medial elbow soft tissue swelling.Small elbow joint effusion.[facility] SouthSedimentation [id number] 06:03:54* Test Item Value Reference Range Interpretation Comme [facility] ESR (test code = 05915-8) 69 0-10 H Lab Interpretation (test cod e = 13008-1) Abnormal [facility] Metabolic Panel (NA, K, CL, CO2, GLUCOSE, BUN, CREATININE, CA)2023-08-01 05:51:17* Test Item Value Reference Range Interpretation Comme nts NA (test code = 2943640875) 134 mmol/L 135-145 L K (test code = 1596102972) 4.0 mmol/L 3.5-5.0 CL (test code = 4555837837) 103 mmol/L 98-108 CO2 TOTAL (test code = 1238366357) 26 mmol/L 23-31 AGAP (test code = 9108191832) 5 2-16 BUN (test code = 6763949370) 17 mg/dL 7-23 GLUCOSE (test code = 5345165941) 96 mg/dL 70-110 CREATININE (test code = 4029100857) 0.98 mg/dL 0.60-1.25 CALCIUM (test code = 2464123242) 8.5 mg/dL 8.6-10.6 L eGFR (test code = 73523-5) 91.1 mL/min/1.73m2 CKD-EPI eGFR (2020). Assuming creatinine has been stable day-to-day for at least three months, the eGFR indicates Category G1 (>= 90 mL/min/1.73 m2) Lab Interpretation (test code = 06464-1) Abnormal [facility] SouthUric [id number] 05:51:17* Test Item Value Reference Range Interpretation Comme [facility] URIC ACID (test code = 6512033737) 8.8 mg/dL 3.6-8.0 H Lab Interpretation (test cod e = 16879-7) Abnormal [facility] with [id number] 05:21:51* Test Item Value Reference Range Interpretation Comme nts WBC (test code = 6690-2) 11.15 4.20-10.70 H RBC (test code = 789-8) 4.46 4.26-5.52 HGB (test code = 718-7) 11.4 g/dL 12.2-16.4 L HCT (test code = 4544-3) 36.5 % 38.4-49.3 L MCV (test code = 787-2) 81.8 fL 81.7-95.6 MCH (test code = 785-6) 25.6 pg 26.1-32.7 L MCHC (test code = 786-4) 31.2 g/dL 31.2-35.0 RDW-SD (test code = 12902-2) 49.7 fL 38.5-51.6 RDW-CV (test code = 788-0) 17.0 % 12.1-15.4 H PLT (test code = 777-3) 354 150-328 H MPV (test code = 19437-4) 9.7 fL 9.8-13.0 L NRBC/100 WBC (test code = 7101838819) 0.0 0.0-10.0 NRBC x10^3 (test code = 0768445451) See_Comment [Automated messa ge] The system which generated this result transmitted reference range: 10*3/?L. The reference range was not used to interpret this result as normal/abnormal. GRAN MAT (NEUT) % (test code = 770-8) 66.7 % IMM GRAN % (test code = 8390924340) 0.50 % LYMPH % (test code = 736-9) 22.1 % MONO % (test code = 5905-5) 6.2 % EOS % (test code = 713-8) 3.8 % BASO % (test code = 706-2) 0.7 % GRAN MAT x10^3(ANC) (test code = 2899559706) 7.44 10*3/uL 1.99-6.95 H IMM GRAN x10^3 (test code = 9149912472) 0.06 10*3/uL 0.00-0.06 LYMPH x10^3 (test code = 731-0) 2.46 10*3/uL 1.09-3.23 MONO x10^3 (test code = 742-7) 0.69 10*3/uL 0.36-1.02 EOS x10^3 (test code = 711-2) 0.42 10*3/uL 0.06-0.53 BASO x10^3 (test code = 704-7) 0.08 10*3/uL 0.01-0.09 Lab Interpretation (test code = 46237-1) Abnormal [facility] SouthTROPONIN [id number] 03:57:03* Test Item Value Reference Range Interpretation Comme nts TROPONIN I (test code = 6240866537) 0.006 ng/mL <=0.034 DUYEN (test code = DUYEN) Reference (Normal) Range (defined by the 99th percentile reference limit): <= 0.034 ng/mL Note: Cardiac troponin begins to rise 3-4 hours after the onset of ischemia. Repeat in 4-6 hours if the sample was drawn within 3-4 hours of the onset of the symptom and found normal. Diagnosis of myocardial injury is made with acute changes in cTn concentrations with at least one serial sample above the 99th percentile upper reference limit (URL), taken together with the patient's clinical presentation. Biotin has been reported to cause a negative bias, interpret results relative to patient's use of biotin. Lab Interpretation (test code = 19216-9) Normal [facility] WITH [id number] 03:56:22* Test Item Value Reference Range Interpretation Comme nts WBC (test code = 6690-2) 20.48 See_Comment H [Automated message] The system which generated this result transmitted reference range: 4.20 - 10.70 10*3/?L. The reference range was not used to interpret this result as normal/abnormal. RBC (test code = 789-8) 4.42 See_Comment [Automated message] The system which generated this result transmitted reference range: 4.26 - 5.52 10*6/?L. The reference range was not used to interpret this result as normal/abnormal. HGB (test code = 718-7) 9.6 g/dL 12.2-16.4 L HCT (test code = 4544-3) 33.6 % 38.4-49.3 L MCV (test code = 787-2) 76.0 fL 81.7-95.6 L MCH (test code = 785-6) 21.7 pg 26.1-32.7 L MCHC (test code = 786-4) 28.6 g/dL 31.2-35.0 L RDW-SD (test code = 12511-0) 50.8 fL 38.5-51.6 RDW-CV (test code = 788-0) 18.6 % 12.1-15.4 H PLT (test code = 777-3) 445 See_Comment H [Automated message] The system which generated this result transmitted reference range: 150 - 328 10*3/?L. The reference range was not used to interpret this result as normal/abnormal. MPV (test code = 47211-6) 9.2 fL 9.8-13.0 L NRBC/100 WBC (test code = 2307317648) 0.1 See_Comment [Automated message] The system which generated this result transmitted reference range: 0.0 - 10.0 /100 WBCs. The reference range was not used to interpret this result as normal/abnormal. NRBC x10^3 (test code = 6573513005) 0.03 See_Comment [Automated message] The system which generated this result transmitted reference range: 10*3/?L. The reference range was not used to interpret this result as normal/abnormal. GRAN MAT (NEUT) % (test code = 770-8) 87.4 % IMM GRAN % (test code = 5823085804) 1.00 % LYMPH % (test code = 736-9) 5.5 % MONO % (test code = 5905-5) 3.5 % EOS % (test code = 713-8) 2.2 % BASO % (test code = 706-2) 0.4 % GRAN MAT x10^3(ANC) (test code = 2128612919) 17.87 10*3/uL 1.99-6.95 H IMM GRAN x10^3 (test code = 2116572680) 0.21 10*3/uL 0.00-0.06 H LYMPH x10^3 (test code = 731-0) 1.13 10*3/uL 1.09-3.23 MONO x10^3 (test code = 742-7) 0.72 10*3/uL 0.36-1.02 EOS x10^3 (test code = 711-2) 0.46 10*3/uL 0.06-0.53 BASO x10^3 (test code = 704-7) 0.09 10*3/uL 0.01-0.09 Lab Interpretation (test code = 65063-6) Abnormal [facility] SouthCOMP. METABOLIC PANEL (25593)2022-12-12 03:40:45* Test Item Value Reference Range Interpretation Comme nts NA (test code = 7714841752) 142 mmol/L 135-145 K (test code = 1465117047) 4.0 mmol/L 3.5-5.0 CL (test code = 6649774475) 105 mmol/L 98-108 CO2 TOTAL (test code = 9473244712) 25 mmol/L 23-31 AGAP (test code = 6373538334) 12 2-16 BUN (test code = 8763846864) 14 mg/dL 7-23 GLUCOSE (test code = 8047644970) 83 mg/dL 70-110 CREATININE (test code = 7522987693) 0.98 mg/dL 0.60-1.25 TOTAL BILI (test code = 0169435855) 0.6 mg/dL 0.1-1.1 CALCIUM (test code = 9410637234) 8.4 mg/dL 8.6-10.6 L T PROTEIN (test code = 3599186865) 8.7 g/dL 6.3-8.2 H ALBUMIN (test code = 2153213141) 3.8 g/dL 3.5-5.0 ALK PHOS (test code = 1978216245) 77 U/L 34-122 ALTv (test code = 1742-6) 15 U/L 5-50 AST(SGOT) (test code = 0930774838) 31 U/L 13-40 eGFR (test code = 1734357674) 79.7 mL/min/1.73m2 DUYEN (test code = DUYEN) Association of Glomerular Filtration Rate (GFR) and Staging of Kidney Disease* + --+ --+ ------+| GFR (mL/min/1.73 m2) ?| With Kidney Damage ?| ?Without Kidney Damage+ --------+ --------+ +| ?>90 ?| ?Stage one ?| ? Normal ?+ ---+ ---+ -------+| ?60-89 ?| ?Stage two ?| ? Decreased GFR ? + --+ --+ ------+| ?30-59 ?| ?Stage three ?| ? Stage three ? + --+ --+ ------+| ?15-29 ?| ?Stage four ? | ? Stage four ?+ ---+ ---+ -------+| ?<15 (or dialysis) ? ?| ?Stage five ? | ? Stage five ?+ ---+ ---+ -------+ *Each stage assumes the associated GFR level has been in effect for at least three months. ?Stages 1 to 5, with or without kidney disease, indicate chronic kidney disease. Notes: Determination of stages one and two (with eGFR >59mL/min/1.73 m2) requires estimation of kidney damage for at least three months as defined by structural or functional abnormalities of the kidney, manifested by either:Pathological abnormalities or Markers of kidney damage (including abnormalities in the composition of the blood or urine or abnormalities in imaging tests). Lab Interpretation (test code = 62824-2) Abnormal [facility] HEMOGLOBIN A1C [id number] 14:19:00* Test Item Value Reference Range Interpretation Comme [facility] POCT HBA1C (test code = 4548-4) 5.3 % 4-6 General acute hospital HEMOGLOBIN A1C [id number] 14:19:00* Test Item Value Reference Range Interpretation Comme [facility] POCT HBA1C (test code = 4548-4) 5.3 % 4-6 [facility] History and Physical Notes Date/Time Note Provider Source 2023-08-01 10:52:09 [facility] Hospitalist Admission H&P Date of Service: 08/01/2023 CHIEF COMPLAINT: Right elbow pain HISTORY OF PRESENT ILLNESS Jess Guillen is a 53 year old male with history of HTN, lymphedema, morbid obese who presents with gradual onset of right elbow pain for the last 3 days. Patient states there is associated swelling, burning and pain radiating to the right elbow. Patient denies insect bites, or injury that he is aware of. Patient also denies chest pain, shortness of breath, fever, chills, nausea or vomiting. Patient's elbow x-ray done in the ER shows some small elbow joint effusion. Molis consulted for further evaluations. PAST MEDICAL HISTORY Past Medical History: Diagnosis Date Hypertension Lymphedema Obesity, morbid, BMI 50 or higher Prediabetes PAST SURGICAL HISTORY Past Surgical History: Procedure Laterality Date ARTERIOGRAM Right 12/21/2021 Surgeon: Cecile Casas MD; Location: [facility] COLONOSCOPY N/A 11/19/2020 Surgeon: Cristina Bustillos MD; Location: [facility] ESOPHAGOGASTRODUODENOSCOPY Left 06/17/2019 Surgeon: Jesse Cheng MD; Location: [facility] Location ESOPHAGOGASTRODUODENOSCOPY N/A 11/19/2020 Surgeon: Cristina Bustillos MD; Location: [facility] EXTREMITY LIPOSUCTION Right 02/11/2019 Surgeon: Gia Carlos MD; Location: [facility] FEMUR/KNEE SURG UNLISTED pt states has had nine sugeries to right leg LEG/ANKLE SURGERY PROC UNLISTED Right MASS EXCISION Right 02/11/2019 Surgeon: Edith Stacy MD; Location: [facility] [place] WIDE LOCAL EXCISION LESION LOWER EXTREMITY (SHX) Right 08/21/2018 Surgeon: Edith Stacy MD; Location: [facility] OR Location ALLERGIES Allergies Allergen Reactions Penicillin Swelling MEDICATIONS Current home medication list reviewed: Current Discharge Medication List STOP taking these medications amLODIPine (NORVASC) 5 mg tablet Comments: Reason for Stopping: hydroCHLOROthiazide 25 mg tablet Comments: Reason for Stopping: triamcinolone acetonide 0.1 % ointment Comments: Reason for Stopping: Zinc Oxide (UNNA-FLEX ELASTIC UNNA BOOT) 4 X 10 "-yard Bndg Comments: Reason for Stopping: ergocalciferol, vitamin d2, (VITAMIN D2) 1,250 mcg (50,000 unit) capsule Comments: Reason for Stopping: Non-Adherent Bandage (MEPITEL) 2 X 3 " Bndg Comments: Reason for Stopping: silver sulfate-nonadh bandage 6 X 8 " Bndg Comments: Reason for Stopping: sodium hypochlorite 0.125 % (DAKIN'S SOLUTION) solution Comments: Reason for Stopping: Foam Bandage-Silver Sulfate (MEPILEX AG) 6 X 6 " Bndg Comments: Reason for Stopping: acetaminophen (TYLENOL EXTRA STRENGTH) 500 mg tablet Comments: Reason for Stopping: FAMILY HISTORY Family History Problem Relation Age of Onset No Significant Medical Problems Mother SOCIAL HISTORY Social History Socioeconomic History Marital status: Occupational History Occupation: disability Tobacco Use Smoking status: Never Smokeless tobacco: Never Vaping Use Vaping Use: Some days Substance and Sexual Activity Alcohol use: Yes Drug use: No Sexual activity: Yes Social History Narrative Lives at home with alone REVIEW OF SYSTEMS Constitutional: negative fevers/chills, weight changes Eyes: negative acute blurry vision, eye discharge Ears, Nose, Mouth, Throat: negative dysphagia, runny nose, sore throat, tinnitus Cardiovascular: negative chest pain, paplitaitons Respiratory: negative sob, cough Gastrointestinal: negative abd pain, nausea, vomiting Genitourinary: Negative dysuria, hematuria Musculoskeletal: positive for right elbow swelling, chronic lymphedema Integumentray: negative rash, itching Neurological: negative syncope, focal weakness Psychiatric: negative hallucinations PHYSICAL EXAMINATION BP 133/85 | Pulse 75 | Temp 36 ?C (96.8 ?F) (Temporal Artery) | Resp 16 | Ht 1.905 m (6' 3") | Wt 202 kg (445 lb 4.8 oz) | SpO2 94% | BMI 55.66 kg/m? General: No acute distress HEENT: Normal oral mucosa, anicteric sclerae, NCAT Cardiovascular: RRR, strong symmetric radial pulses Lungs: CTAB Abdomen: Soft, NTND Musculoskeletal: Normal ROM, right leg with lymphedema wrap with [place] bandage. Right elbow warm to touch, swollen Genitourinary: Normal Skin: No rash, lesions Neuro: AAOx3, no focal deficits Psych: Normal affect LABS - reviewed pertinent labs as below: CBC BMP PT/INR WBC (10*3/?L) Date Value 07/31/2023 11.15 (H) NA (mmol/L) Date Value 07/31/2023 134 (L) No results found for: "PT" RBC (10*6/?L) Date Value 07/31/2023 4.46 K (mmol/L) Date Value 07/31/2023 4.0 INR (no units) Date Value 12/29/2021 1.0 PLT (10*3/?L) Date Value 07/31/2023 354 (H) CALCIUM (mg/dL) Date Value 07/31/2023 8.5 (L) HGB (g/dL) Date Value 07/31/2023 11.4 (L) CL (mmol/L) Date Value 07/31/2023 103 aPTT HCT (%) Date Value 07/31/2023 36.5 (L) BUN (mg/dL) Date Value 07/31/2023 17 APTT Patient (Seconds) Date Value 06/16/2019 23 CREATININE (mg/dL) Date Value 07/31/2023 0.98 IMAGING - reviewed, pertinent results as below: Hospital Encounter on 07/31/23 XR ELBOW 3+ VW RIGHT Narrative EXAM: XR ELBOW 3+ VW RIGHT HISTORY: right elbow pain and swelling, decreased ROM, no known injury COMPARISON: None] available FINDINGS: Radiographs of the right elbow demonstrate chronic appearing olecranon avulsion fracture with soft tissue swelling at the level of the triceps tendon. The joint spaces are maintained. Medial elbow soft tissue swelling. Small elbow joint effusion. Impression Chronic appearing olecranon avulsion fracture and soft tissue swelling at the medial elbow and triceps tendon. Small elbow joint effusion. Preliminary Report Dictated by Resident: Avel Carlos I, Urbano Fishmna MD., have reviewed this study and agree with the above report. ASSESSMENT/PLAN Jess Guillen 53-year-old male admitted for: Right elbow cellulitis --Right elbow warm to touch site marked -- Chronic appearing olecranon on avulsion fracture and soft tissue swelling at the medial elbow and tricuspid tendon. Small elbow joint effusion -- Consult orthopedic surgeon Dr. Barbosa was notified -- Continue vancomycin, ceftriaxone day 2 -- Pain management HTN -- Continue amlodipine 5 mg daily -- Continue hydrochlorothiazide 25 mg daily Prophylaxis: DVT- enoxaparin Stress Ulcer: no indication for prophylaxis Advanced Care Planning (Z71.89) Above assessment and plan discussed at length with patient, patient expressed full understanding. Questions and concerned addressed, I spent 18 minutes discussing the advance care plan. Surrogate decision maker: self Level of care expected after discharge: Self independent Code status: Full code Smoking Cessation: (Z71.6) Tobacco user?: Smoker if yes: Patient does not want to quit states he does not smoke a lot of cigarettes daily Time spent: 4 minutes discussing smoking cessation Patient will require inpatient stay of 2 midnights or more given high risk of morbidity and mortality. [place] TALKBACK HOST was viewed during this stay TIMUR Duffy ESTATE ACQUISITION ANALYST Associated attestation - Darek Saucedo DO - 08/01/2023 7:28 PM REAL ESTATE ACQUISITION ANALYST I have independently seen and evaluated this patient. I agree with the findings and documentation provided in the nurse practitioner's notes. Medicine team will continue to provide daily care. In summary this is a 53-year-old male with past medical history including hypertension, morbid obesity and lymphedema who presents for right upper extremity/elbow erythema and edema. Patient is now admitted for cellulitis started on IV antibiotics. Will consult with orthopedics. Rest of plan events outlined below. Darek Saucedo DO 08/01/2023 7:27 PM [facility] Notes Date/Time Note Provider Source 2024-09-30 10:45:00 Images from the original note were not included. Venipuncture collection performed by clean technique on the right anticubitus. Total of 1 attempts were made. Slight pressure and a bandage/dressing were applied to the site(s). The patient experienced no complications. The following specimens were processed according to instructions and sent to [facility] laboratories per lab order on 09/30/2024 : LT BLUE SST 1 RED LAV 2 PPT DK GREEN (LiHep) DK GREEN (SodH) BUI DK BLUE (K2) DK BLUE (S) ACD Blood Culture NIPT/NTD [facility] [employer] 2024-08-29 08:57:34 Images from the original note were not included. Notes: 05/14/24 Last Refilled: [facility] #[id number] - [place], [place] - [address] [facility] [address] Recent Visits Date Type Provider Dept 04/01/24 Office Visit Teresita Luque FNP [facility] 09/29/23 Office Visit Teresita Luque FNP [facility] 03/10/23 Office Visit Teresita Luque FNP [facility] Showing recent visits within past 540 days with a meds authorizing provider and meeting all other requirements Future Appointments Date Type Provider Dept 09/30/24 Appointment Teresita Luque FNP [facility] Showing future appointments within next 150 days with a meds authorizing provider and meeting all other requirements amLODIPine (NORVASC) 5 mg tablet Sig: Take 2 tablets by mouth in the morning. Disp: 180 tablet Refills: 1 Start: 08/29/2024 Class: eRX For: Essential hypertension Last ordered: 3 months ago (05/14/2024) by TIMUR Flores Patient comment: No more tablets Calcium Channel Blockers Wnrnhz2508/29/2024 08:43 AM Protocol Details Valid encounter within last 12 months [id number] [place] [place] [facility] [address] [facility] RAFI ESTATE ACQUISITION ANALYST Amanda Pablo MA [facility] 2024-07-30 10:43:40 Last Refilled: Disp Refills Start End LEONARD hydroCHLOROthiazide 25 mg tablet 90 tablet 1 04/01/2024 -- -- Sig: Take 1 tablet by mouth in the morning. Sent to pharmacy as: hydroCHLOROthiazide 25 mg tablet (ESIDRIX) Class: eRX Route: Oral Order: [id number] Date/Time Signed: 04/01/2024 09:54 E-Prescribing Status: Receipt confirmed by pharmacy (04/01/2024 9:54 AM CDT) Notes: Recent Visits Date Type Provider Dept 04/01/24 Office Visit Anene, Teresita, NUT FEEDER [facility] 09/29/23 Office Visit Teresita Luque FNP [facility] 03/10/23 Office Visit Teresita Luque FNP [facility] 02/23/23 Office Visit Teresita Luque NUT FEEDER [facility] Showing recent visits within past 540 days with a meds authorizing provider and meeting all other requirements Future Appointments Date Type Provider Dept 09/30/24 Appointment Teresita Luque FNP [facility] Showing future appointments within next 150 days with a meds authorizing provider and meeting all other requirements Wound Care Nurse Visit on 05/16/2024 Component Date Value WBC 05/16/2024 10.05 RBC 05/16/2024 4.67 HGB 05/16/2024 11.9 (L) HCT 05/16/2024 40.8 MCV 05/16/2024 87.4 MCH 05/16/2024 25.5 (L) MCHC 05/16/2024 29.2 (L) RDW-SD 05/16/2024 48.3 RDW-CV 05/16/2024 15.2 PLT 05/16/2024 526 (H) MPV 05/16/2024 9.6 (L) NRBC/100 WBC 05/16/2024 0.0 NRBC x10 3 05/16/2024 <0.01 GRAN MAT (NEUT) % 05/16/2024 64.5 IMM GRAN % 05/16/2024 0.40 LYMPH % 05/16/2024 24.0 MONO % 05/16/2024 6.5 EOS % 05/16/2024 3.8 BASO % 05/16/2024 0.8 GRAN MAT x10 3 (ANC) 05/16/2024 6.49 IMM GRAN x10 3 05/16/2024 0.04 LYMPH x10 3 05/16/2024 2.41 MONO x10 3 05/16/2024 0.65 EOS x10 3 05/16/2024 0.38 BASO x10 3 05/16/2024 0.08 CRP 05/16/2024 19.2 (H) Wound Care Nurse Visit on 04/01/2024 Component Date Value PSA 04/01/2024 3.76 TSH 04/01/2024 1.18 CHOL 04/01/2024 177 HDL 04/01/2024 55 HDLC RATIO 04/01/2024 3.2 TRIG 04/01/2024 79 LDL CHOL 04/01/2024 106 VLDL 04/01/2024 16 HGB A1C 04/01/2024 5.9 (H) Office Visit on 04/01/2024 Component Date Value WBC 04/01/2024 12.99 (H) RBC 04/01/2024 4.61 HGB 04/01/2024 12.4 HCT 04/01/2024 40.4 MCV 04/01/2024 87.6 MCH 04/01/2024 26.9 MCHC 04/01/2024 30.7 (L) RDW-SD 04/01/2024 49.3 RDW-CV 04/01/2024 15.7 (H) PLT 04/01/2024 322 MPV 04/01/2024 10.2 NRBC/100 WBC 04/01/2024 0.0 NRBC x10 3 04/01/2024 <0.01 GRAN MAT (NEUT) % 04/01/2024 74.5 IMM GRAN % 04/01/2024 0.40 LYMPH % 04/01/2024 15.2 MONO % 04/01/2024 7.6 EOS % 04/01/2024 1.8 BASO % 04/01/2024 0.5 GRAN MAT x10 3 (ANC) 04/01/2024 9.68 (H) IMM GRAN x10 3 04/01/2024 0.05 LYMPH x10 3 04/01/2024 1.98 MONO x10 3 04/01/2024 0.99 EOS x10 3 04/01/2024 0.23 BASO x10 3 04/01/2024 0.06 NA 04/01/2024 137 K 04/01/2024 4.5 CL 04/01/2024 102 CO2 TOTAL 04/01/2024 26 AGAP 04/01/2024 9 BUN 04/01/2024 15 GLUCOSE 04/01/2024 100 CREATININE 04/01/2024 0.84 TOTAL BILI 04/01/2024 0.9 CALCIUM 04/01/2024 8.7 T PROTEIN 04/01/2024 8.7 (H) ALBUMIN 04/01/2024 3.9 ALK PHOS 04/01/2024 52 ALTv 04/01/2024 14 AST(SGOT) 04/01/2024 30 eGFR 04/01/2024 102.3 Admission on 02/10/2024, Discharged on 02/10/2024 Component Date Value Influenza A NAAT 02/10/2024 Negative Influenza B NAAT 02/10/2024 Negative RSV by PCR 02/10/2024 Negative SARS-CoV-2 NAAT 02/10/2024 Negative COVID DMT Interpretation 02/10/2024 Value:Interpretation/Recommenda tions: Molecular NAAT Tests for Active Infection with the SARS-CoV-2 Virus: The patient has currently tested negative for the SARS-CoV-2 virus that causes COVID-19 illness. This most likely indicates that the patient does not have an active infection with the SARS-CoV-2 virus. However, infection is not completely ruled out as the false negative rate for molecular NAAT testing using a nasopharyngeal sample can be up to 30%, mostly dependent on the timing of sample collection in relation to illness onset and any deficiencies in sampling techniques. If the patient has symptoms concerning for COVID-19 illness, a repeat NAAT test (PCR, Rapid ID Now, etc.) should be performed, at which time the SARS-CoV-2 virus - if present - may have reached a detectable viral load (usually peaking by the end of the first week of symptoms). Tests for IgM and/or IgG Antibodies to the SARS-CoV-2 Virus: If the patient develops COVID-19 illness in the future, testing for IgM and IgG antibodies approximately 3 weeks after illness onset will likely indicate if the patient has produced antibodies to the SARS-CoV-2 virus. However, some patients may take longer to develop detectable antibodies, while some patients who were infected with SARS-CoV-2 may never develop antibodies. While antibodies to SARS-CoV-2 may provide some degree of immunity, at this time the strength and duration of the antibody response is unknown. Interpretation Result Comments: These interpretation comments are based upon the following COVID-19 tests the patient has had at [facility]: molecular nucleic acid amplification tests (NAAT) (specifically PCR testing and Rapid ID Now testing) and antibody tests. It does not take into account antigen testing or any additional testing that a patient may have had outside of the [facility] medical record. COVID Results 02/10/2024 Value:SARS-CoV-2 NAAT (no units) Date Value 02/10/2024 Negative 01/24/2020 Not Detected SARS-CoV-2 Rapid ID NOW (no units) Date Value 12/20/2021 Not Detected 11/16/2020 Not Detected 10/11/2019 Not Detected Wound Care Nurse Visit on 09/29/2023 Component Date Value TSH 09/29/2023 1.40 CHOL 09/29/2023 175 HDL 09/29/2023 47 HDLC RATIO 09/29/2023 3.7 TRIG 09/29/2023 103 LDL CHOL 09/29/2023 107 VLDL 09/29/2023 21 HGB A1C 09/29/2023 6.0 (H) UMU 09/29/2023 Positive (A) UMU Titer by IFA 09/29/2023 1:80 UMU Pattern 09/29/2023 Speckled UMU - Pathologist Interp* 09/29/2023 Value:UMU HEp-2 IIFA Pathologist Interpretation Report Patient Name: Jess Guillen Antinuclear Antibody (UMU) Test (Anti-Cell Antibodies Test) Indirect Immunofluorescence Assay on HEp-2 Cells Screening titer: 1:80 (adults, > 18 years old), 1:40 (pediatrics, <= 18 years old) Result: The antinuclear antibody (UMU) test is positive, demonstrating the AC-4/5-Speckled Pattern with a titer of 1:80. A titer greater than or equal to 1:160 is generally considered to be clinically significant. General Remarks: The AC-4/5-Speckled Pattern is one of the least specific UMU immunofluorescent patterns, associated with many autoantibodies, including antibodies against SS-A (Ro), SS-B (La), Mi-2, TIF1-gamma, TIF1-beta, Ku, U1RNP, U2RNP, Zamora, RNA polymerase III, and other currently unspecified autoantigens. As such, this pattern may be found in a wide variety of systemic autoimmune rheumatic diseases, including Sjogren's syndrome, systemic lupus erythematosus (SLE), systemic sclerosis, mixed connective tissue disease (MCTD), undifferentiated connective tissue disease (UCTD), dermatomyositis, polymyositis, and systemic sclerosis-autoimmune myopathy overlap syndrome. Additionally, a nuclear speckled pattern may be found in organ-specific autoimmune diseases (such as autoimmune thyroid disease, autoimmune hepatitis, etc.), other types of autoimmune disease, and certain non-autoimmune diseases/conditions. This pattern may also be seen in relatively healthy individuals, particularly at lower titers. For more information, the International Consensus on UMU Patterns (ICAP) guidelines can be found at www.anapatterns.org. UMU pattern clinical associations are neither absolute nor diagnostic, but they may serve as a guide to differential diagnosis formation and/or subsequent follow-up test selection in the appropriate clinical setting. Importantly, a nuclear speckled pattern with a titer of 1:80 is a non-specific finding whose clinical meaningfulness is uncertain and dependent on the patient's overall clinical presentation. This is because up to approximately 10-12% of individuals in the general healthy population are estimated to have a positive UMU with a titer of at least 1:80. A positive UMU may be seen in even higher percentages in the healthy elderly population and in individuals with a family history of rheumatic disease. The UMU may also be positive in conditions besides systemic autoimmune rheumatic diseases (SARDs), such as in other types of autoimmune disease; in a variety of inflammatory, infectious, and neoplastic conditions; and with certain medication usage. However, while higher UMU titers generally may increase the overall likelihood of a SARD in patients presenting with symptoms suggestive of SARD, SARD may occasionally present with low UMU titers. Clinical correlation - with possibly repeating the UMU and any other clinically indicated subserologies - is therefore needed to accurately assess the clinical significance of this non-specific UMU result as it pertains to the patient's overall clinical presentation. References: - Mel Coronel, Odessa R, Megha J, Dandre WINSTON, Macario ROWE. Guidelines for clinical use of the antinuclear antibody test and tests for specific autoantibodies to nuclear antigens. [employer]. Arch Pathol Lab Med. 2000;124(1):71-81. doi:10.5858/[id number] Sagrario - Norman Swain, Lex ARREOLA, Negrita Walton. Rational use of blood tests in the evaluation of rheumatic diseases. Mo Med. 2012;109(1):59-63. The UMU test is an important screening test for systemic autoimmune rheumatic disease (SARD). However, the UMU test is non-specific for SARD and may be positive in a variety of clinical settings, including autoimmune, inflammatory, infectious, and neoplastic/malignant conditions, as well as due to certain medications. Additionally, UMU positivity may be seen in varying percentages of healthy individuals, especially at lower titers, in the healthy elderly population, and in individuals with a family history of rheumatic disease. Therefore, a diagnosis cannot be based exclusively on UMU detection and/or pattern and thus should be made via the integration of patient history, physical exam findings, and other diagnostic tests as clinically indicated. Martina Cavazos MD 10/05/2023 1:30 PM Office Visit on 09/29/2023 Component Date Value WBC 09/29/2023 7.97 RBC 09/29/2023 4.57 HGB 09/29/2023 12.0 (L) HCT 09/29/2023 39.0 MCV 09/29/2023 85.3 MCH 09/29/2023 26.3 MCHC 09/29/2023 30.8 (L) RDW-SD 09/29/2023 52.8 (H) RDW-CV 09/29/2023 17.2 (H) PLT 09/29/2023 341 (H) MPV 09/29/2023 9.9 NRBC/100 WBC 09/29/2023 0.0 NRBC x10 3 09/29/2023 <0.01 GRAN MAT (NEUT) % 09/29/2023 62.5 IMM GRAN % 09/29/2023 0.40 LYMPH % 09/29/2023 24.2 MONO % 09/29/2023 5.5 EOS % 09/29/2023 6.4 BASO % 09/29/2023 1.0 GRAN MAT x10 3 (ANC) 09/29/2023 4.98 IMM GRAN x10 3 09/29/2023 0.03 LYMPH x10 3 09/29/2023 1.93 MONO x10 3 09/29/2023 0.44 EOS x10 3 09/29/2023 0.51 BASO x10 3 09/29/2023 0.08 NA 09/29/2023 139 K 09/29/2023 3.9 CL 09/29/2023 103 CO2 TOTAL 09/29/2023 29 AGAP 09/29/2023 7 BUN 09/29/2023 13 GLUCOSE 09/29/2023 90 CREATININE 09/29/2023 0.98 TOTAL BILI 09/29/2023 0.7 CALCIUM 09/29/2023 8.6 T PROTEIN 09/29/2023 8.8 (H) ALBUMIN 09/29/2023 3.8 ALK PHOS 09/29/2023 72 ALTv 09/29/2023 15 AST(SGOT) 09/29/2023 48 (H) eGFR 09/29/2023 91.1 Admission on 07/31/2023, Discharged on 08/02/2023 Component Date Value WBC 07/31/2023 11.15 (H) RBC 07/31/2023 4.46 HGB 07/31/2023 11.4 (L) HCT 07/31/2023 36.5 (L) MCV 07/31/2023 81.8 MCH 07/31/2023 25.6 (L) MCHC 07/31/2023 31.2 RDW-SD 07/31/2023 49.7 RDW-CV 07/31/2023 17.0 (H) PLT 07/31/2023 354 (H) MPV 07/31/2023 9.7 (L) NRBC/100 WBC 07/31/2023 0.0 NRBC x10 3 07/31/2023 <0.01 GRAN MAT (NEUT) % 07/31/2023 66.7 IMM GRAN % 07/31/2023 0.50 LYMPH % 07/31/2023 22.1 MONO % 07/31/2023 6.2 EOS % 07/31/2023 3.8 BASO % 07/31/2023 0.7 GRAN MAT x10 3 (ANC) 07/31/2023 7.44 (H) IMM GRAN x10 3 07/31/2023 0.06 LYMPH x10 3 07/31/2023 2.46 MONO x10 3 07/31/2023 0.69 EOS x10 3 07/31/2023 0.42 BASO x10 3 07/31/2023 0.08 NA 07/31/2023 134 (L) K 07/31/2023 4.0 CL 07/31/2023 103 CO2 TOTAL 07/31/2023 26 AGAP 07/31/2023 5 BUN 07/31/2023 17 GLUCOSE 07/31/2023 96 CREATININE 07/31/2023 0.98 CALCIUM 07/31/2023 8.5 (L) eGFR 07/31/2023 91.1 ESR 07/31/2023 69 (H) URIC ACID 07/31/2023 8.8 (H) LACTIC ACID 08/01/2023 1.73 Blood Culture-Aerobic 08/01/2023 No organisms isolated Blood Culture-Anaerobic 08/01/2023 No organisms isolated Blood Culture-Aerobic 08/01/2023 No organisms isolated Blood Culture-Anaerobic 08/01/2023 No organisms isolated CRP 08/01/2023 10.0 (H) WBC 08/02/2023 11.99 (H) RBC 08/02/2023 4.13 (L) HGB 08/02/2023 10.5 (L) HCT 08/02/2023 34.0 (L) MCV 08/02/2023 82.3 MCH 08/02/2023 25.4 (L) MCHC 08/02/2023 30.9 (L) RDW-SD 08/02/2023 50.1 RDW-CV 08/02/2023 16.8 (H) PLT 08/02/2023 366 (H) MPV 08/02/2023 9.4 (L) NRBC/100 WBC 08/02/2023 0.0 NRBC x10 3 08/02/2023 <0.01 GRAN MAT (NEUT) % 08/02/2023 73.9 IMM GRAN % 08/02/2023 0.40 LYMPH % 08/02/2023 17.8 MONO % 08/02/2023 6.0 EOS % 08/02/2023 1.3 BASO % 08/02/2023 0.6 GRAN MAT x10 3 (ANC) 08/02/2023 8.85 (H) IMM GRAN x10 3 08/02/2023 0.05 LYMPH x10 3 08/02/2023 2.14 MONO x10 3 08/02/2023 0.72 EOS x10 3 08/02/2023 0.16 BASO x10 3 08/02/2023 0.07 NA 08/02/2023 137 K 08/02/2023 3.7 CL 08/02/2023 104 CO2 TOTAL 08/02/2023 30 AGAP 08/02/2023 3 BUN 08/02/2023 15 GLUCOSE 08/02/2023 115 (H) CREATININE 08/02/2023 0.76 CALCIUM 08/02/2023 8.3 (L) eGFR 08/02/2023 106.1 I Ríos RN [facility] 2024-06-13 10:46:39 Will leave appt on schedule . I Thakur [facility] 2024-06-13 10:38:19 I spoke with balta and sofi together. Dr. Gifford will be doing the procedure and wants Sofi to preop the patient on 06/27/24, Sofi is in agreement to pre op patient on that day. I Shah RN [facility] 2024-06-13 10:27:09 Dr. Gifford will not be here until Jul 01 . Is it safe for patient to wit until than for appointment ? Please advice so we can call and reschedule current appt with balta. [facility] 2024-06-10 13:51:36 Routed to PSS [facility] 2024-06-10 12:05:15 Jess Guillen is a 54 year old male Pt was seen on 06/[address] Valerio and was told to f/u with their [facility] doctor so that they can go over the amputation and when they can get scheduled for it Please advise at [phone] (home) I Leon [facility] 2024-06-05 13:52:59 Patient requesting referral for ortho appt on Thursday 06/07. He reports appt is for 2nd opinion regarding amputation of right leg/foot lymphedema. Please review, complete, and sign if appropriate. [facility] 2024-05-31 16:08:06 Jess Guillen is a 54 year old male Patient is returning a miss call from nurse. See previous encounter dated 05.27.24 Please advise I Estrada [facility] 2024-05-30 14:17:22 LMTCB Prema Waggoner LVN 05/30/2024 I Waggoner LVN [facility] 2024-05-29 07:26:47 Please review and close. I Sheriff [facility] 2024-05-27 10:50:37 Pt is calling stating he is needing a second opinion from a orthopedic doctor. Pt has an appointment on 05/31 but would like to see if this could be done over the phone. Please advise. [phone] (home) ESTATE ACQUISITION ANALYST [facility] 2024-05-27 10:17:58 Called and spoke with patient. Patient requesting a recommendation for orthopedic surgeon for second opinion regarding possible leg amputation. Advised patient that Dr. Carlos does not generally provide specific names for recommendation but that there is an orthopedic department here in [place] that he could consult with if he would like. Patient verbalizes understanding. States that Dr. Carlos treated his leg wound in 2021 and that he was comfortable with her, states he has appointment scheduled with her on 06/11/24 to consult. Denies further questions or concerns. I Wilburn RN [facility] 2024-05-27 08:50:06 Jess Guillen Pt calling to request provider or nurse call him to discuss about having a second opinion on having his leg amputated. Pt states he was advised to have it done and wanted to discuss with Dr. Carlos since she has done some work on his leg before. Please contact pt and advise [phone] (home) I Jay [facility] 2024-05-16 15:15:00 Images from the original note were not included. Venipuncture collection performed by clean technique on the left anticubitus. Total of 1 attempts were made. Slight pressure and a bandage/dressing were applied to the site(s). The patient experienced no complications. The following specimens were processed according to instructions and sent to [facility] laboratories per lab order on 05/16/2024 : LT BLUE SST 1 RED LAV 1 PEDI PPT DK GREEN (LiHep) DK GREEN (SodH) BUI DK BLUE (K2) DK BLUE (S) ACD Blood Culture NIPT/NTD [facility] 2024-05-14 10:32:28 Last Refilled: Disp Refills Start End LEONARD amLODIPine (NORVASC) 5 mg tablet 180 tablet 1 04/01/2024 -- No Sig: Take 2 tablets by mouth in the morning. Sent to pharmacy as: amLODIPine 5 mg tablet (Norvasc) Class: eRX Route: Oral Order: [id number] Date/Time Signed: 04/01/2024 09:54 E-Prescribing Status: Receipt confirmed by pharmacy (04/01/2024 9:54 AM CDT) Notes: office visit note 04/01/24 Assessment/Plan Essential hypertension (primary encounter diagnosis) Comment: chronic Plan: Cbc with Diff, Comp. Metabolic Panel (69777), Thyroid Stimulating Hormone, Lipid Panel (73515)(Total Cholesterol, Triglycerides, HDL), hydroCHLOROthiazide 25 mg tablet, amLODIPine (NORVASC) 5 mg tablet- increased to 10 mg Monitor blood pressures at home routinely, first thing in the morning and last thing before bed, record the readings. If consistently >130/80, please RTC for medication management. If with acute chestpain, jaw pain, numbness and tingling radiating to arm, with or without respiratory distress, please go to the ER. Recent Visits Date Type Provider Dept 04/01/24 Office Visit Teresita Luque FNP [facility] 09/29/23 Office Visit Teresita Luque FNP [facility] 03/10/23 Office Visit Teresita Luque FNP [facility] 02/23/23 Office Visit Teresita Luque FNP [facility] Showing recent visits within past 540 days with a meds authorizing provider and meeting all other requirements Future Appointments Date Type Provider Dept 09/30/24 Appointment Teresita Luque FNP [facility] Showing future appointments within next 150 days with a meds authorizing provider and meeting all other requirements Wound Care Nurse Visit on 04/01/2024 Component Date Value PSA 04/01/2024 3.76 TSH 04/01/2024 1.18 CHOL 04/01/2024 177 HDL 04/01/2024 55 HDLC RATIO 04/01/2024 3.2 TRIG 04/01/2024 79 LDL CHOL 04/01/2024 106 VLDL 04/01/2024 16 HGB A1C 04/01/2024 5.9 (H) Office Visit on 04/01/2024 Component Date Value WBC 04/01/2024 12.99 (H) RBC 04/01/2024 4.61 HGB 04/01/2024 12.4 HCT 04/01/2024 40.4 MCV 04/01/2024 87.6 MCH 04/01/2024 26.9 MCHC 04/01/2024 30.7 (L) RDW-SD 04/01/2024 49.3 RDW-CV 04/01/2024 15.7 (H) PLT 04/01/2024 322 MPV 04/01/2024 10.2 NRBC/100 WBC 04/01/2024 0.0 NRBC x10 3 04/01/2024 <0.01 GRAN MAT (NEUT) % 04/01/2024 74.5 IMM GRAN % 04/01/2024 0.40 LYMPH % 04/01/2024 15.2 MONO % 04/01/2024 7.6 EOS % 04/01/2024 1.8 BASO % 04/01/2024 0.5 GRAN MAT x10 3 (ANC) 04/01/2024 9.68 (H) IMM GRAN x10 3 04/01/2024 0.05 LYMPH x10 3 04/01/2024 1.98 MONO x10 3 04/01/2024 0.99 EOS x10 3 04/01/2024 0.23 BASO x10 3 04/01/2024 0.06 NA 04/01/2024 137 K 04/01/2024 4.5 CL 04/01/2024 102 CO2 TOTAL 04/01/2024 26 AGAP 04/01/2024 9 BUN 04/01/2024 15 GLUCOSE 04/01/2024 100 CREATININE 04/01/2024 0.84 TOTAL BILI 04/01/2024 0.9 CALCIUM 04/01/2024 8.7 T PROTEIN 04/01/2024 8.7 (H) ALBUMIN 04/01/2024 3.9 ALK PHOS 04/01/2024 52 ALTv 04/01/2024 14 AST(SGOT) 04/01/2024 30 eGFR 04/01/2024 102.3 Admission on 02/10/2024, Discharged on 02/10/2024 Component Date Value Influenza A NAAT 02/10/2024 Negative Influenza B NAAT 02/10/2024 Negative RSV by PCR 02/10/2024 Negative SARS-CoV-2 NAAT 02/10/2024 Negative COVID DMT Interpretation 02/10/2024 Value:Interpretation/Recommenda tions: Molecular NAAT Tests for Active Infection with the SARS-CoV-2 Virus: The patient has currently tested negative for the SARS-CoV-2 virus that causes COVID-19 illness. This most likely indicates that the patient does not have an active infection with the SARS-CoV-2 virus. However, infection is not completely ruled out as the false negative rate for molecular NAAT testing using a nasopharyngeal sample can be up to 30%, mostly dependent on the timing of sample collection in relation to illness onset and any deficiencies in sampling techniques. If the patient has symptoms concerning for COVID-19 illness, a repeat NAAT test (PCR, Rapid ID Now, etc.) should be performed, at which time the SARS-CoV-2 virus - if present - may have reached a detectable viral load (usually peaking by the end of the first week of symptoms). Tests for IgM and/or IgG Antibodies to the SARS-CoV-2 Virus: If the patient develops COVID-19 illness in the future, testing for IgM and IgG antibodies approximately 3 weeks after illness onset will likely indicate if the patient has produced antibodies to the SARS-CoV-2 virus. However, some patients may take longer to develop detectable antibodies, while some patients who were infected with SARS-CoV-2 may never develop antibodies. While antibodies to SARS-CoV-2 may provide some degree of immunity, at this time the strength and duration of the antibody response is unknown. Interpretation Result Comments: These interpretation comments are based upon the following COVID-19 tests the patient has had at [facility]: molecular nucleic acid amplification tests (NAAT) (specifically PCR testing and Rapid ID Now testing) and antibody tests. It does not take into account antigen testing or any additional testing that a patient may have had outside of the [facility] medical record. COVID Results 02/10/2024 Value:SARS-CoV-2 NAAT (no units) Date Value 02/10/2024 Negative 01/24/2020 Not Detected SARS-CoV-2 Rapid ID NOW (no units) Date Value 12/20/2021 Not Detected 11/16/2020 Not Detected 10/11/2019 Not Detected Wound Care Nurse Visit on 09/29/2023 Component Date Value TSH 09/29/2023 1.40 CHOL 09/29/2023 175 HDL 09/29/2023 47 HDLC RATIO 09/29/2023 3.7 TRIG 09/29/2023 103 LDL CHOL 09/29/2023 107 VLDL 09/29/2023 21 HGB A1C 09/29/2023 6.0 (H) MUU 09/29/2023 Positive (A) UMU Titer by IFA 09/29/2023 1:80 UMU Pattern 09/29/2023 Speckled UMU - Pathologist Interp* 09/29/2023 Value:UMU HEp-2 IIFA Pathologist Interpretation Report Patient Name: Jess Guillen Antinuclear Antibody (UMU) Test (Anti-Cell Antibodies Test) Indirect Immunofluorescence Assay on HEp-2 Cells Screening titer: 1:80 (adults, > 18 years old), 1:40 (pediatrics, <= 18 years old) Result: The antinuclear antibody (UMU) test is positive, demonstrating the AC-4/5-Speckled Pattern with a titer of 1:80. A titer greater than or equal to 1:160 is generally considered to be clinically significant. General Remarks: The AC-4/5-Speckled Pattern is one of the least specific UMU immunofluorescent patterns, associated with many autoantibodies, including antibodies against SS-A (Ro), SS-B (La), Mi-2, TIF1-gamma, TIF1-beta, Ku, U1RNP, U2RNP, Zamora, RNA polymerase III, and other currently unspecified autoantigens. As such, this pattern may be found in a wide variety of systemic autoimmune rheumatic diseases, including Sjogren's syndrome, systemic lupus erythematosus (SLE), systemic sclerosis, mixed connective tissue disease (MCTD), undifferentiated connective tissue disease (UCTD), dermatomyositis, polymyositis, and systemic sclerosis-autoimmune myopathy overlap syndrome. Additionally, a nuclear speckled pattern may be found in organ-specific autoimmune diseases (such as autoimmune thyroid disease, autoimmune hepatitis, etc.), other types of autoimmune disease, and certain non-autoimmune diseases/conditions. This pattern may also be seen in relatively healthy individuals, particularly at lower titers. For more information, the International Consensus on UMU Patterns (ICAP) guidelines can be found at www.anapatterns.org. UMU pattern clinical associations are neither absolute nor diagnostic, but they may serve as a guide to differential diagnosis formation and/or subsequent follow-up test selection in the appropriate clinical setting. Importantly, a nuclear speckled pattern with a titer of 1:80 is a non-specific finding whose clinical meaningfulness is uncertain and dependent on the patient's overall clinical presentation. This is because up to approximately 10-12% of individuals in the general healthy population are estimated to have a positive UMU with a titer of at least 1:80. A positive UMU may be seen in even higher percentages in the healthy elderly population and in individuals with a family history of rheumatic disease. The UMU may also be positive in conditions besides systemic autoimmune rheumatic diseases (SARDs), such as in other types of autoimmune disease; in a variety of inflammatory, infectious, and neoplastic conditions; and with certain medication usage. However, while higher UMU titers generally may increase the overall likelihood of a SARD in patients presenting with symptoms suggestive of SARD, SARD may occasionally present with low UMU titers. Clinical correlation - with possibly repeating the UMU and any other clinically indicated subserologies - is therefore needed to accurately assess the clinical significance of this non-specific UMU result as it pertains to the patient's overall clinical presentation. References: - Mel Coronel, Odessa R, Megha J, Dandre WINSTON, Macario ROWE. Guidelines for clinical use of the antinuclear antibody test and tests for specific autoantibodies to nuclear antigens. [employer]. Arch Pathol Lab Med. 2000;124(1):71-81. doi:10.5858/[id number] Sagrario - Norman C, Lex EC, Negrita Walton. Rational use of blood tests in the evaluation of rheumatic diseases. Mo Med. 2012;109(1):59-63. The UMU test is an important screening test for systemic autoimmune rheumatic disease (SARD). However, the UMU test is non-specific for SARD and may be positive in a variety of clinical settings, including autoimmune, inflammatory, infectious, and neoplastic/malignant conditions, as well as due to certain medications. Additionally, UMU positivity may be seen in varying percentages of healthy individuals, especially at lower titers, in the healthy elderly population, and in individuals with a family history of rheumatic disease. Therefore, a diagnosis cannot be based exclusively on UMU detection and/or pattern and thus should be made via the integration of patient history, physical exam findings, and other diagnostic tests as clinically indicated. Martina Cavazos MD 10/05/2023 1:30 PM Office Visit on 09/29/2023 Component Date Value WBC 09/29/2023 7.97 RBC 09/29/2023 4.57 HGB 09/29/2023 12.0 (L) HCT 09/29/2023 39.0 MCV 09/29/2023 85.3 MCH 09/29/2023 26.3 MCHC 09/29/2023 30.8 (L) RDW-SD 09/29/2023 52.8 (H) RDW-CV 09/29/2023 17.2 (H) PLT 09/29/2023 341 (H) MPV 09/29/2023 9.9 NRBC/100 WBC 09/29/2023 0.0 NRBC x10 3 09/29/2023 <0.01 GRAN MAT (NEUT) % 09/29/2023 62.5 IMM GRAN % 09/29/2023 0.40 LYMPH % 09/29/2023 24.2 MONO % 09/29/2023 5.5 EOS % 09/29/2023 6.4 BASO % 09/29/2023 1.0 GRAN MAT x10 3 (ANC) 09/29/2023 4.98 IMM GRAN x10 3 09/29/2023 0.03 LYMPH x10 3 09/29/2023 1.93 MONO x10 3 09/29/2023 0.44 EOS x10 3 09/29/2023 0.51 BASO x10 3 09/29/2023 0.08 NA 09/29/2023 139 K 09/29/2023 3.9 CL 09/29/2023 103 CO2 TOTAL 09/29/2023 29 AGAP 09/29/2023 7 BUN 09/29/2023 13 GLUCOSE 09/29/2023 90 CREATININE 09/29/2023 0.98 TOTAL BILI 09/29/2023 0.7 CALCIUM 09/29/2023 8.6 T PROTEIN 09/29/2023 8.8 (H) ALBUMIN 09/29/2023 3.8 ALK PHOS 09/29/2023 72 ALTv 09/29/2023 15 AST(SGOT) 09/29/2023 48 (H) eGFR 09/29/2023 91.1 Admission on 07/31/2023, Discharged on 08/02/2023 Component Date Value WBC 07/31/2023 11.15 (H) RBC 07/31/2023 4.46 HGB 07/31/2023 11.4 (L) HCT 07/31/2023 36.5 (L) MCV 07/31/2023 81.8 MCH 07/31/2023 25.6 (L) MCHC 07/31/2023 31.2 RDW-SD 07/31/2023 49.7 RDW-CV 07/31/2023 17.0 (H) PLT 07/31/2023 354 (H) MPV 07/31/2023 9.7 (L) NRBC/100 WBC 07/31/2023 0.0 NRBC x10 3 07/31/2023 <0.01 GRAN MAT (NEUT) % 07/31/2023 66.7 IMM GRAN % 07/31/2023 0.50 LYMPH % 07/31/2023 22.1 MONO % 07/31/2023 6.2 EOS % 07/31/2023 3.8 BASO % 07/31/2023 0.7 GRAN MAT x10 3 (ANC) 07/31/2023 7.44 (H) IMM GRAN x10 3 07/31/2023 0.06 LYMPH x10 3 07/31/2023 2.46 MONO x10 3 07/31/2023 0.69 EOS x10 3 07/31/2023 0.42 BASO x10 3 07/31/2023 0.08 NA 07/31/2023 134 (L) K 07/31/2023 4.0 CL 07/31/2023 103 CO2 TOTAL 07/31/2023 26 AGAP 07/31/2023 5 BUN 07/31/2023 17 GLUCOSE 07/31/2023 96 CREATININE 07/31/2023 0.98 CALCIUM 07/31/2023 8.5 (L) eGFR 07/31/2023 91.1 ESR 07/31/2023 69 (H) URIC ACID 07/31/2023 8.8 (H) LACTIC ACID 08/01/2023 1.73 Blood Culture-Aerobic 08/01/2023 No organisms isolated Blood Culture-Anaerobic 08/01/2023 No organisms isolated Blood Culture-Aerobic 08/01/2023 No organisms isolated Blood Culture-Anaerobic 08/01/2023 No organisms isolated CRP 08/01/2023 10.0 (H) WBC 08/02/2023 11.99 (H) RBC 08/02/2023 4.13 (L) HGB 08/02/2023 10.5 (L) HCT 08/02/2023 34.0 (L) MCV 08/02/2023 82.3 MCH 08/02/2023 25.4 (L) MCHC 08/02/2023 30.9 (L) RDW-SD 08/02/2023 50.1 RDW-CV 08/02/2023 16.8 (H) PLT 08/02/2023 366 (H) MPV 08/02/2023 9.4 (L) NRBC/100 WBC 08/02/2023 0.0 NRBC x10 3 08/02/2023 <0.01 GRAN MAT (NEUT) % 08/02/2023 73.9 IMM GRAN % 08/02/2023 0.40 LYMPH % 08/02/2023 17.8 MONO % 08/02/2023 6.0 EOS % 08/02/2023 1.3 BASO % 08/02/2023 0.6 GRAN MAT x10 3 (ANC) 08/02/2023 8.85 (H) IMM GRAN x10 3 08/02/2023 0.05 LYMPH x10 3 08/02/2023 2.14 MONO x10 3 08/02/2023 0.72 EOS x10 3 08/02/2023 0.16 BASO x10 3 08/02/2023 0.07 NA 08/02/2023 137 K 08/02/2023 3.7 CL 08/02/2023 104 CO2 TOTAL 08/02/2023 30 AGAP 08/02/2023 3 BUN 08/02/2023 15 GLUCOSE 08/02/2023 115 (H) CREATININE 08/02/2023 0.76 CALCIUM 08/02/2023 8.3 (L) eGFR 08/02/2023 106.1 [facility] Therese Ríos RN [facility] 2024-05-14 08:33:01 Jess Guillen is a 54 year old male is requesting a refill for amLODIPine 5 mg tablet (Norvasc) because he was only supplied with 30 tablets on 04/01. He took his last dose today. Patient is requesting refill be sent to [id number] - [place], [place] - [address] AT [facility] [address] [facility] [id number] Please advise [phone] (home) ESTATE ACQUISITION ANALYST [facility] 2024-05-13 12:03:22 Post ED Visit Outreach Call 05/13/2024 Jess Guillen [id number] Jess Guillen is a 54 year old Black or male was admitted on 05/10/24 to [facility]. He was discharged on 05/10/24 with discharge disposition of HR- Routine Discharge. High ED Utilization (number of ER visits over past 90 days) 1 ED Diagnosis Foot Pain Avoidable ED Visit? No. Name of PCP- Teresita Luque FNP Date of Last Office Visit- 04/01/2024 Are you having any symptoms? Yes. Do you have all of your medications? Yes. Have you scheduled a follow up appointment with your physician? Patient has follow up with ortho and will call to schedule follow up with PCP as needed. Do you need assistance with scheduling a follow up appointment? No. Do you have transportation to your appointment? Yes. Do you have any questions or concerns? No. Interventions: Discuss ED alternatives for avoidable ED (urgent care, PCP appointment). Establish care with [facility] PCP (if no PCP) Confirm follow up visit with established PCP. 4) Consult Ambulatory Marketing Strategy Lead as needed. 5) Communicate with physician's office via phone or in basket message as needed. I Storey RN [facility] 2024-05-13 09:57:51 Refill denied: Requested Prescriptions Pending Prescriptions Disp Refills amLODIPine (NORVASC) 5 mg tablet 180 tablet 1 Sig: Take 2 tablets by mouth in the morning. Last fill date: 04/01/24 qty 180 with 1 refill I Waggoner LVN [facility] 2024-05-10 15:14:40 Pt given printed and verbal discharge instructions regarding sprain of R foot. Prescriptions provided x1 Discussed ibuprofen and to take with food to avoid GI distress. Pt verbalized understanding of instructions, pt awake alert oriented, resp reg unlabored, skin w/d, color appropriate for race, moves all ext well,pt encouraged to follow up with ortho. Advised to seek medical attention for new/prolonged/worsening of symptoms. No adverse reaction to meds given in ER noted upon discharge Awake, alert oriented, resp reg unlabored, skin w/d, pt leaving amb with steady gait, in no apparent distress. I Donato RN [facility] 2024-05-10 13:01:34 Patient arrived via wheelchair for right foot pain x10day, went to [facility] did an xray, too painful to walk on. HX 2010 crush injury to foot, lymphedema, drop foot I Torres RN [facility] 2024-04-01 10:15:00 Images from the original note were not included. Venipuncture collection performed by clean technique on the left anticubitus. Total of 2 attempts were made. Slight pressure and a bandage/dressing were applied to the site(s). The patient experienced no complications. The following specimens were processed according to instructions and sent to [facility] laboratories per lab order on 04/01/2024 : LT BLUE SST 1 RED LAV 2 PPT DK GREEN (LiHep) DK GREEN (SodH) BUI DK BLUE (K2) DK BLUE (S) ACD Blood Culture NIPT/NTD Jacqui Chappell [facility] 2024-02-12 11:26:04 Post ED Visit Outreach Call Date of ED Visit: 02/10/2024 High ED Utilization (number of ER visits over past 90 days): 1 ED Diagnosis: Febrile illness Acute cough Bronchitis Avoidable ED Visit? Y/N: N Name of PCP: TIMUR De Date of Last Office Visit: 09/29/2023 Do you have a few minutes to speak with me about how you are doing at home? Reports doing "Good". Are you having any symptoms? no Do you have all of your medications? yes Have you scheduled a follow up appointment with your physician? no Do you need assistance with scheduling a follow up appointment? Declines assistance at this time. Do you have transportation to your appointment? yes Do you have any questions or concerns? no Please remember to bring all of your medications to your follow up appointment. Alejandrina Taylor RN [facility] 2024-02-10 23:04:54 Pt given printed and verbal discharge instructions regarding bronchitis Prescriptions provided: -albuterol 90 mcg/actuation inhaler -benzonatate 200 mg capsule -levoFLOXacin 500 mg tablet -predniSONE 20 mg tablet Discussed antibiotic therapy and to take until all completed unless adverse reaction occurs - if occurs, discontinue medication and follow up with pcp/seek medical attention Pt verbalized understanding of instructions, pt awake alert oriented, resp reg unlabored, skin w/d, color appropriate for race, moves all ext well,pt encouraged to follow up with pcp Advised to seek medical attention for new/prolonged/worsening of symptoms No adverse reaction to meds given in ER noted upon discharge Awake, alert oriented, resp reg unlabored, skin w/d, pt leaving amb with steady gait, in no apparent distress Ana M Hyatt RN [facility] 2024-02-10 21:23:51 Patient arrived ambulatory with cane to ED c/o "can't breathe, I don't know if its allergies or not" and coughing that started today. SPO2 97% on room air in triage. Patient states feeling congested. Patient denies any breathing or cardiac problems in the past. Patient took Benadryl and benzonatate capsule early this AM. About two weeks finished abx for bronchitis. States feeling dehydrated and doing too much. Arun Andersen RN [facility] 2024-02-10 21:21:00 [facility] Emergency Department Note Patient Name: Jess Guillen Date of : 1970 53 year old male Treatment Room: Room/bed info not found Primary Care Physician: Teresita Luque Patient Escorted by: Self [9] Mode of Arrival: Personal means [1] EMS Treatment Prior to ED Arrival: FIELD ARTILLERY OFFICER treatment: Medication (comment) FIELD ARTILLERY OFFICER treatment comments: see triage note Travel and Exposure Screening: Symptoms Does patient have any of these symptoms?: (not recorded) Exposure Screening Has patient had contact with someone with a communicable disease in the last month?: (not recorded) Diseases exposed to:: (not recorded) Is Patient ?: (not recorded) Exposure Date: (not recorded) Chief Complaint: Chief Complaint Patient presents with Shortness of Breath History of Present Illness: Onset yesterday with trouble breathing characterized as nasal congestion. (+) chills. No fever. (+) cough, episodic productive. No wheezing. No respiratory distress. No shortness of breath. No chest pain. No known close sick contacts. No sore throat. Recent encounter: . 12/31/23. Urgent Care. 10 days of cough. No distress. No testing. Rx: azithromycin, medrol dose-yuniel, guaifenesin, tessalon History provided by: Patient Past Medical History/Immunizations: Past Medical History: Diagnosis Date Hypertension Lymphedema Obesity, morbid, BMI 50 or higher Prediabetes Tetanus received in last 5 years: Yes Allergies: Allergies Allergen Reactions Penicillin Swelling Past Social History: Tobacco Use Never smoked or used smokeless tobacco. Vaping Use Some days Alcohol Use Yes. Drug Use No. Sexual Activity Sexually active. Past Surgical History: Past Surgical History: Procedure Laterality Date ARTERIOGRAM Right 12/21/2021 Surgeon: Cecile Casas MD; Location: [facility] COLONOSCOPY N/A 11/19/2020 Surgeon: Cristina Bustillos MD; Location: [facility] ESOPHAGOGASTRODUODENOSCOPY Left 06/17/2019 Surgeon: Jesse Cheng MD; Location: [facility] Location ESOPHAGOGASTRODUODENOSCOPY N/A 11/19/2020 Surgeon: Cristina Bustillos MD; Location: [facility] EXTREMITY LIPOSUCTION Right 02/11/2019 Surgeon: Gia Carlos MD; Location: [facility] FEMUR/KNEE SURG UNLISTED pt states has had nine sugeries to right leg LEG/ANKLE SURGERY PROC UNLISTED Right MASS EXCISION Right 02/11/2019 Surgeon: Edith Stacy MD; Location: [facility] WIDE LOCAL EXCISION LESION LOWER EXTREMITY (SHX) Right 08/21/2018 Surgeon: Edith Stacy MD; Location: [facility] Review of Systems: Review of Systems Constitutional: Negative. HENT: Positive for congestion (nasal). Negative for sore throat. Eyes: Negative. Respiratory: Positive for cough. Negative for shortness of breath and wheezing. Cardiovascular: Negative. Gastrointestinal: Negative. Genitourinary: Negative. Musculoskeletal: Negative. Skin: Negative. Neurological: Negative. Psychiatric/Behavioral: Negative. Physical Exam: ED Triage Vitals [02/10/242128] Weight 193 kg (425 lb 7.2 oz) Actual or estimated Actual Height 1.93 m (6' 4") BP (!) 169/85 Pulse 91 Resp 22 Temp 38.2 ?C (100.8 ?F) Temp source Oral SpO2 97 % Measured on Room air Physical Exam Vitals and nursing note reviewed. Constitutional: General: He is not in acute distress. Appearance: Normal appearance. He is obese. He is not ill-appearing, toxic-appearing or diaphoretic. HENT: Head: Normocephalic and atraumatic. Right Ear: External ear normal. Left Ear: External ear normal. Nose: Nose normal. Mouth/Throat: Mouth: Mucous membranes are moist. Eyes: Extraocular Movements: Extraocular movements intact. Conjunctiva/sclera: Conjunctivae normal. Cardiovascular: Rate and Rhythm: Normal rate and regular rhythm. Pulmonary: Effort: Pulmonary effort is normal. No respiratory distress. Breath sounds: Wheezing (bilateral mild expiratory wheezing) present. No rhonchi or rales. Comments: No accessory muscle use; phonation is clear; speaks easily in completed sentences. Chest: Chest wall: No tenderness. Abdominal: General: There is no distension. Palpations: Abdomen is soft. Tenderness: There is no abdominal tenderness. Musculoskeletal: General: Normal range of motion. Cervical back: Normal range of motion. Right lower leg: Edema (lymphedema) present. Left lower leg: Edema (lymphedema) present. Skin: General: Skin is warm and dry. Neurological: General: No focal deficit present. Mental Status: He is alert. Psychiatric: Mood and Affect: Mood normal. Behavior: Behavior normal. Thought Content: Thought content normal. Judgment: Judgment normal. Radiology: XR CHEST 2 VW Final Result Ordering physician: VENKATA EMERSON Indication: Fever, cough and wheezing Comparison: None Technical quality: Adequate Findings: PA and lateral views of the chest. The cardiopericardial silhouette is within normal limits. There is thickening of the rubin of the central airways. The visualized bony thorax is intact. IMPRESSION Impression: Thickening of the rubin of the central airways may reflect infectious or inflammatory bronchitis. END REPORT RL: [id number] AFC: [id number] Lab Results: Lab Results INFLUENZA A/B RSV COVID NAAT - Normal Result Value Ref Range Influenza A NAAT Negative Negative Influenza B NAAT Negative Negative RSV by PCR Negative Negative SARS-CoV-2 NAAT Negative Negative EKG: If EKG completed, see Procedure Note. Orders and Treatments: Orders Placed This Encounter Procedures XR CHEST 2 VW Influenza A B RSV COVID NAAT Lab Only COVID Interpretation Orders Placed This Encounter Medications ipratropium-albuteroL (DUONEB) 0.5 mg-3 mg(2.5 mg base)/3 mL nebulizer solution 3 mL benzonatate (TESSALON PERLES) capsule 200 mg oxymetazoline (OXYMETAZOLINE HCL) 0.05 % nasal spray 2 [place] predniSONE (DELTASONE) tablet 40 mg acetaminophen (TYLENOL) tablet 650 mg levoFLOXacin (LEVAQUIN) tablet 500 mg levoFLOXacin 500 mg tablet predniSONE 20 mg tablet benzonatate 200 mg capsule albuterol 90 mcg/actuation inhaler First Provider Eval: ED Events Date/Time Event User Comments 02/10/242122 Medical Screening Begins VENKATA EMERSON MD -- 02/10/242122 First Provider Evaluation VENKATA EMERSON MD -- ED COURSE Diagnosis/Impression as of 02/10/24 2300 Febrile illness Acute cough Bronchitis Procedures: Procedures MDM: Medical Decision Making Primary impression: bronchitis Secondary impression: febrile illness, upper respiratory infection, cough Differential Diagnoses, including but not limited to: electrolyte / glucose abnl, anemia, SAMMY, arrhythmia, acute coronary event Problems Addressed: Acute cough: acute illness or injury Bronchitis: acute illness or injury Febrile illness: acute illness or injury Amount and/or Complexity of Data Reviewed Independent Historian: Details: self Labs: ordered. Decision-making details documented in ED Course. Radiology: ordered. Decision-making details documented in ED Course. Discussion of management or test interpretation with external provider(s): N/a Risk OTC drugs. Prescription drug management. Risk Details: Unremarkable OBS in ED. Findings and plan discussed with patient. No findings that require acute hospitalization today. Flowsheet Documentation: Scoring Tools: No data recorded Disposition/Condition: ED Disposition ED Disposition Disch - Home Condition Stable Comment -- Discharge Medications: Patient's Medications START taking these medications ALBUTEROL 90 MCG/ACTUATION INHALER Inhale 2 Puffs every 4 (four) hours as needed for Wheezing or Shortness of Breath. BENZONATATE 200 MG CAPSULE Take 1 capsule by mouth 3 (three) times daily as needed for Cough. LEVOFLOXACIN 500 MG TABLET Take 1 tablet by mouth every 24 (twenty-four) hours for 7 days. PREDNISONE 20 MG TABLET Take 2 tablets by mouth in the morning for 7 days. CONTINUE taking these medications which have NOT CHANGED ACETAMINOPHEN (TYLENOL EXTRA STRENGTH) 500 MG TABLET Take 1 tablet by mouth every 6 (six) hours as needed for Pain. AMLODIPINE (NORVASC) 5 MG TABLET Take 1 tablet by mouth in the morning. BACITRACIN 500 UNIT/GRAM OINTMENT Apply to affected area(s) 2 (two) times daily. ERGOCALCIFEROL, VITAMIN D2, (VITAMIN D2) 1,250 MCG (50,000 UNIT) CAPSULE Take 1 capsule by mouth weekly. FOAM BANDAGE-SILVER SULFATE (MEPILEX AG) 6 X 6 " BNDG Use as directed. Place over open wounds. GUAIFENESIN 400 MG TABLET Take 1 tablet by mouth every 4 (four) hours as needed for Cough. HYDROCHLOROTHIAZIDE 25 MG TABLET Take 1 tablet by mouth in the morning. METHYLPREDNISOLONE (MEDROL, YUNIEL,) 4 MG TABLETS Take by mouth SEE-INSTRUCTIONS. follow package directions NON-ADHERENT BANDAGE (MEPITEL) 2 X 3 " BNDG Use as directed SILVER SULFATE-NONADH BANDAGE 6 X 8 " BNDG Use as directed SODIUM HYPOCHLORITE 0.125 % (DAKIN'S SOLUTION) SOLUTION Apply to area(s) daily. TRIAMCINOLONE ACETONIDE 0.1 % OINTMENT Apply to area(s) 2 (two) times daily. ZINC OXIDE (UNNA-FLEX ELASTIC UNNA BOOT) 4 X 10 "-YARD BNDG Use as directed START taking Modified Medications as Prescribed No medications on file STOP taking these medications AZITHROMYCIN (ZITHROMAX Z-YUNIEL) 250 MG TABLET Take 1 tablet by mouth in the morning. BENZONATATE 100 MG CAPSULE Take 2 capsules by mouth every 8 (eight) hours as needed for Cough. Follow-up: PCP Electronically signed by: Venkata Emerson MD 02/10/24 2300 [facility] 2023-09-29 11:30:00 Images from the original note were not included. Venipuncture collection performed by clean technique on the left anticubitus. Total of 1 attempts were made. Slight pressure and a bandage/dressing were applied to the site(s). The patient experienced no complications. The following specimens were processed according to instructions and sent to [facility] laboratories per lab order on 09/29/2023 : LT BLUE SST 1 RED LAV 2 PPT DK GREEN (LiHep) DK GREEN (SodH) BUI DK BLUE (K2) DK BLUE (S) ACD Blood Culture NIPT/NTD ' 1 lt green T [facility] 2023-09-11 15:09:02 Patient has appointment with PCP in September. [facility] 2023-09-11 09:07:17 Pt wanted to keep appt for next month Pt will call if he needs sooner Diane Loco [facility] 2023-09-08 11:35:25 F/u with pcp ORT-ORTHOPAEDIC SURGERY STAFF [facility] 2023-09-06 15:36:24 Patient is requesting another antibiotic for his elbow. He states when he is off of antibiotic it stiffens up again. [id number] - [place], [place] - [address] [facility] [address] Leah Blackman Ok [facility] 2023-09-04 10:37:12 Needs a follow up if this continues. FM-FAMILY MEDICINE STAFF [facility] 2023-09-04 10:31:06 Patients elbow is swelling and getting stiff and painful again, he is asking for advise on what he needs to do, he has aury antibiotics left over and is taking them now but does not want to continue taking antibiotics and not getting diagnosis for what is going on with his elbow. I offered appointment and he wanted to check PCP first. [facility] 2023-09-04 09:56:58 Copied from [facility] #[id number]. Topic: Clinical - Medical Advice >> Sep 04, 2023 9:52 AM Patient Career Development Coordinator wrote: Pt requesting to speak to nurse in regards to pt right elbow hurting. Pt was offered urgent care but declined and only wants to speak to clinic nurse in regards to a medication given to him. Cephalexin [facility] [place] Leisa Luke [facility] 2023-08-23 08:38:38 Noted, will wait for fax to give to provider. ESTATE ACQUISITION ANALYST [facility] 2023-08-23 08:30:08 Patient wanted provider to know that Leigh Ann Meredith his PT therapist will send a form over for a new leg brace. ESTATE ACQUISITION ANALYST Evangelina Morel [facility] 2023-08-03 14:54:28 TRANSITIONAL CARE MANAGEMENT ASSESSMENT 08/03/2023 Jess Guillen [id number] Jess Guillen is a 53 year old Black or male was admitted on 07/31/23 to [facility]. He was discharged on 08/02/23 with discharge disposition of HR- Routine Discharge. Admitting Physician: Navi Lockhart Discharge Diagnosis: Right elbow cellulitis --Right elbow warm to touch site marked -- Chronic appearing olecranon on avulsion fracture and soft tissue swelling at the medial elbow and tricuspid tendon. Small elbow joint effusion -- Consult orthopedic surgeon Dr. Barbosa was notified -- Continue vancomycin, ceftriaxone day 2 -- Pain management HTN -- Continue amlodipine 5 mg daily -- Continue hydrochlorothiazide 25 mg daily Linked Episodes Type: Episode: Status: Noted: Resolved: Last update: Updated by: TRANSITION OF CARE TCM Active 08/02/2023 08/03/2023 10:43 AM Brandon Graham, RN Comments: TCM [id number] outreach documentation: Discharge Assessment Chart Assessed: 08/03/23 TCM Outreach Completed: 08/03/23 Do you have a few minutes to speak with me about how you are doing at home?: Yes (Pt reports he is doing ok.) Discharge Instructions Do you understand your at-home instructions?: Yes (No questions at this time.) Medications Have you filled your prescriptions and do you have them in your home? : Yes Do you know how to take your medications?: Yes (No questions.) Can you provide me with the names or descriptions of any ldit-dkt-[id number] or supplements you are currently taking?: Yes (Tylenol PRN) Supplies Did you receive applicable home medical supplies/equipment?: N/A Follow Up Appointment Has a follow up appointment been scheduled?: No May I assist with scheduling this appointment?: Unable to schedule-referred to HFU Team Do you have any questions about your follow up appointments?: No Are you able to get to your appointment? Who will be taking you?: Yes (Pt states he has transportation.) Home Health Assistance Has the home health nurse contacted you since you've been home?: N/A Survey - Recognition Is there anything you would like to share about your recent hospitalization, or anyone you would like to recognize?: No Do you have any suggestions for improvement?: No Do you have any other questions or concerns at this time?: No Future Appointments: Future Appointments Provider Department Dept Phone 08/11/2023 1:00 PM Leigh Ann Meredith, FIELD ARTILLERY OFFICER [facility] Physical[facility]Occupational Re[facility], [place] [phone] 09/29/2023 10:30 AM Teresita Luque FNP [facility] Family Medicine, [facility] [phone] I Graham RN [facility] 2023-08-03 10:44:14 CM made follow up call to patient post-discharge. No answer and no voicemail. ESTATE ACQUISITION ANALYST [facility] 2023-08-02 10:44:02 Problem: Pain Goal: Control of pain at or below patient's documented comfort goal Outcome: Adequate for discharge Problem: Discharge Planning Goal: Adequate for discharge Outcome: Adequate for discharge Problem: Falls, Risk of Goal: Absence of falls Outcome: Adequate for discharge Problem: Fluid Volume - Imbalanced Goal: Absence of imbalanced fluid volume signs and symptoms Outcome: Adequate for discharge Problem: Skin integrity Impaired (Risk or Actual) Goal: Wound healing Outcome: Adequate for discharge Goal: Prevention of new skin breakdown Outcome: Adequate for discharge Problem: Venous Thromboembolism, (actual or risk of) Goal: Absence of venous thromboembolism (Risk) Outcome: Adequate for discharge I Michelle RN [facility] 2023-08-02 00:30:21 Problem: Pain Goal: Control of pain at or below patient's documented comfort goal Outcome: Progressing as expected Problem: Discharge Planning Goal: Adequate for discharge Outcome: Progressing as expected Problem: Falls, Risk of Goal: Absence of falls Outcome: Progressing as expected Problem: Fluid Volume - Imbalanced Goal: Absence of imbalanced fluid volume signs and symptoms Outcome: Progressing as expected Problem: Skin integrity Impaired (Risk or Actual) Goal: Wound healing Outcome: Progressing as expected Goal: Prevention of new skin breakdown Outcome: Progressing as expected Problem: Venous Thromboembolism, (actual or risk of) Goal: Absence of venous thromboembolism (Risk) Outcome: Progressing as expected [facility] Jayant Darby RN [facility] 2023-08-01 16:03:56 Problem: Pain Goal: Control of pain at or below patient's documented comfort goal Outcome: Progressing as expected Problem: Discharge Planning Goal: Adequate for discharge Outcome: Progressing as expected Problem: Falls, Risk of Goal: Absence of falls Outcome: Progressing as expected Problem: Fluid Volume - Imbalanced Goal: Absence of imbalanced fluid volume signs and symptoms Outcome: Progressing as expected Problem: Skin integrity Impaired (Risk or Actual) Goal: Wound healing Outcome: Progressing as expected Goal: Prevention of new skin breakdown Outcome: Progressing as expected Problem: Venous Thromboembolism, (actual or risk of) Goal: Absence of venous thromboembolism (Risk) Outcome: Progressing as expected [facility] 2023-08-01 10:54:28 Summary: Vancomycin Monitoring Vancomycin Therapeutic Monitoring Note Pharmacy to monitor vancomycin dosing for patient Jess Guillen, [id number]. Primary Physician: Dr. Saucedo ID Physician, if following: N/A Indication for Vancomycin and Goal Trough: Skin and Soft Tissue Infections - Trough 10-15 mcg/ml Age: [age] year old Weight: Wt Readings from Last 1 Encounters: 08/01/23 202 kg (445 lb 4.8 oz) Duration of Antibiotics: TBD (08/01/23 - present) Concurrent Antibiotics: Ceftriaxone 1 gm IV Q24H (08/01/23 - present) Microbiology: Blood culture (08/01/23) culture in progress Laboratory Data and Vancomycin Dosing: Date Scr (mg/dL) CrCL (mL/min) Dosing Regimen and frequency @ Times (mg) Vancomycin Level @ Time (mcg/mL) 08/01/23 0.98 158.4 1500 mg IV given @ 0123, scheduled for 1300 - - - - - - - Assessment and Plan: Plan is to: Start vancomycin scheduled at a dose of: Vancomycin 1500 mg IV Q12H (~8 mg/kg) Plan to draw next trough level on: _08/02/23_ @ _1230_ prior to the 4th dose. Thank you for allowing pharmacy to participate in the care of this patient. Please feel free to contact us with any questions or concerns. Rebeca Rasmussen PharmD, [facility] Pager: [phone] 08/01/2023 11:12 I Rasmussen [facility] 2023-08-01 05:28:23 Problem: Pain Goal: Control of pain at or below patient's documented comfort goal Outcome: Progressing as expected Problem: Discharge Planning Goal: Adequate for discharge Outcome: Progressing as expected Problem: Falls, Risk of Goal: Absence of falls Outcome: Progressing as expected Problem: Fluid Volume - Imbalanced Goal: Absence of imbalanced fluid volume signs and symptoms Outcome: Progressing as expected Problem: Skin integrity Impaired (Risk or Actual) Goal: Wound healing Outcome: Progressing as expected Goal: Prevention of new skin breakdown Outcome: Progressing as expected Problem: Venous Thromboembolism, (actual or risk of) Goal: Absence of venous thromboembolism (Risk) Outcome: Progressing as expected I Mccabe RN [facility] 2023-08-01 02:22:29 Patient admitted to med/surg for diagnosis of right elbow pain and cellulitis of elbow Patient agrees to admission, discussed plan of care with patient and family. Patient is awake, alert, oriented, resp reg unlabored, color appropriate for race, PIV intact No adverse reaction to medications administered while in ED Belongings with patient to unit Report to MARCIO Magaña ESTATE ACQUISITION ANALYST [facility] 2023-07-31 22:20:24 Pt arrived c/o burning R elbow pain that began 3 days ago. Pt reports it is a burning/stinging pain. The site is warm to the touch. Pt states he is able to to flex his elbow. Pt denies injury. PMH: HTN, Lymphedema on RLE ESTATE ACQUISITION ANALYST Jennifer Goncalves RN [facility] 2023-03-10 11:00:00 Formatting of this n ote is different from the original. Images from the original note were not included. Venipuncture collection performed by clean technique on the right anticubitus. Total of 1 attempts were made. Slight pressure and a bandage/dressing were applied to the site(s). The patient experienced no complications. The following specimens were processed according to instructions and sent to [facility] laboratories per lab order on 03/10/2023 : LT BLUE SST 1 RED LAV 2 PPT DK GREEN (LiHep) DK GREEN (SodH) BUI DK BLUE (K2) DK BLUE (S) ACD Blood Culture NIPT/NTD [facility]
[2024-10-22] MEDS ORDERED: ONDANSETRON 4 MG/2 ML VIAL ONE (14:38)
[2024-10-22] MEDS ORDERED: methocarbamoL 750 MG TAB ONE (14:39)
[2024-10-22] MEDS ORDERED: HYDROCODONE/APAP 7.5/325 MG TAB ONE (14:39)
[2024-10-22 15:01] LABS: Absolute Basophils 0.1 K/uL (0-0.5); Absolute Eosinophils 0.1 K/uL (0-0.5); Absolute Lymphocytes (CBC) 1.7 K/uL (0.7-4.9); Absolute Monocytes 0.8 K/uL (0.1-1.3); Basophils % 0.8 % (0-1.3); Eosinophils % 0.8 % (0-4.4); Hematocrit 35.6 % (39.6-49.0); Hemoglobin 11.7 g/dL (13.6-17.9); Lymphocytes % 14.6 % (15.3-44.8); MCH 27.9 pg (27.0-35.0); MCV 84.6 fL (80-100); Neutrophils % 76.8 % (41.7-73.7); Platelets 713 thou/uL (152-406); RBC Red Blood Cell Count 4.21 M/uL (4.33-5.43); Red Cell Distribution Width 15.9 % (12.1-15.2)
--- NOTE | 2024-10-22 15:05 | RAD REPORT ---
EXAM: Chest Single View HISTORY: 54 years Male CHEST PAIN COMPARISON: 01/12/2015 FINDINGS: LUNGS/PLEURA: The lungs are clear. No pleural effusions or pneumothorax. No pulmonary edema. CARDIAC/MEDIASTINUM: The cardiac silhouette is within normal limits. UPPER ABDOMEN: No significant abnormality. BONES: No acute abnormality. LINES/TUBES/OTHER: N/A IMPRESSION: No evidence of acute cardiopulmonary disease. No significant change from prior.
--- NOTE | 2024-10-22 15:05 | RAD REPORT ---
EXAMINATION: Ankle Left 3 View VIEWS: Three views CLINICAL INDICATION: Male, 54 years old. PAIN COMPARISON: No prior exam. IMPRESSION: No acute fracture. No malalignment or dislocation. Moderate degenerative changes are present at the ankle joint, particularly laterally. Calcaneal spurs .
--- NOTE | 2024-10-22 15:06 | RAD REPORT ---
EXAMINATION: Shoulder Left 2+ Views CLINICAL INDICATION: Male, 54 years old. PAIN COMPARISON: No prior exam. FINDINGS: No acute fracture. No malalignment/dislocation. No significant focal degenerative change. Other: n/a IMPRESSION: No acute osseous abnormality.
[2024-10-22 15:20] LABS: Anion Gap 9.9 mEq/L (5.0-15.0); Potassium 3.9 mEq/L (3.5-5.1); Troponin High Sensitivity 5.4 pg/mL (<58.9)
--- NOTE | 2024-10-22 15:39 | ER ---
Nurse's Notes [facility] Name: Dejuan Rahman Age: 54 yrs Sex: Male : 1970 Arrival Date: 10/22/2024 Time: 13:43 Bed 6 Private MD: Diagnosis: Pain in left shoulder;Pain in left ankle and joints of left foot Presentation: 10/22 14:06 Chief complaint: Patient states: left shoulder pain X 1 week, and I feel like my left iw ankle is swollen. Coronavirus screen: At this time, the client does not indicate any symptoms associated with coronavirus-19. Ebola Screen: No symptoms or risks identified at this time. Risk Assessment: Do you want to hurt yourself or someone else? Patient reports no desire to harm self or others. 14:06 Method Of Arrival: Wheelchair iw 14:06 Acuity: BERNARDINO 3 iw 14:35 Initial Sepsis Screen: Does the patient meet any 2 criteria? No. Patient's initial bp sepsis screen is negative. Does the patient have a suspected source of infection? No. Patient's initial sepsis screen is negative. 16:35 Onset of symptoms is unknown. bp Historical: - Allergies: 14:38 PENICILLINS; iw - PMHx: 14:08 lymphedema; iw - Immunization history:: Adult Immunizations unknown. - Infectious Disease History:: Denies. - Social history:: Smoking status: Patient denies any tobacco usage or history of. Screenin:50 [facility] ED Fall Risk Assessment (Adult) History of falling in the last 3 months, bp including since admission No falls in past 3 months (0 pts) Confusion or Disorientation No (0 pts) Intoxicated or Sedated No (0 pts) Impaired Gait No (0 pts) Mobility Assist Device Used No (0 pt) Altered Elimination No (0 pt) Score/Fall Risk Level 0 - 2 = Low Risk Oriented to surroundings. Abuse screen: Denies threats or abuse. Denies injuries from another. Nutritional screening: No deficits noted. Tuberculosis screening: No symptoms or risk factors identified. Assessment: 14:51 General: Appears in no apparent distress. uncomfortable, obese, Behavior is calm, bp cooperative, appropriate for age. Vital Signs: 14:35 BP 110 / 62; Pulse 85; Resp 16; Temp 98; Pulse Ox 99% ; bp 14:45 BP 131 / 71; Pulse 80; Pulse Ox 99% on R/A; rs6 ED Course: 13:48 Patient arrived in ED. cj3 13:48 Stacy Meredith PA-C [facility]. sb4 13:48 Leon Leung DO is Attending Physician. sb4 14:07 Triage completed. iw 14:16 Urbano Stock, RN is Primary Nurse. bp 14:37 Arm band placed on. iw 14:47 Warm blanket given. rs6 14:47 Inserted saline lock: 20 gauge in right forearm, using aseptic technique. Blood rs6 collected. Flushed with 10 mL NS. 14:50 XRAY Chest (1 view) In Process Unspecified. EDMS 14:50 Shoulder Left (2 View) XRAY In Process Unspecified. EDMS 14:50 Ankle Left 3 View XRAY In Process Unspecified. EDMS 14:50 Patient has correct armband on for positive identification. bp 16:34 No provider procedures requiring assistance completed. IV discontinued, intact, bp bleeding controlled, No redness/swelling at site. Pressure dressing applied. 16:35 Provided Education on: NA. bp Administered Medications: 14:49 Drug: Methocarbamol PO 750 mg PO once Route: PO; bp 16:19 Follow up: Response: No adverse reaction bp 14:49 Drug: Ondansetron IVP 4 mg IVP once; over 2 minutes Route: IVP; Site: right antecubital;bp 16:19 Follow up: Response: No adverse reaction bp 14:50 Drug: Hydrocodone-Acetaminophen PO (7.5 mg-325 mg) 1 tabs PO once Route: PO; bp 16:19 Follow up: Response: No adverse reaction bp Medication: 16:35 VIS not applicable for this client. bp Outcome: 15:39 Discharge ordered by . sb4 16:34 Discharged to home via wheelchair, with family, bp 16:34 Condition: stable 16:34 Discharge instructions given to patient, Instructed on discharge instructions, follow up and referral plans. Demonstrated understanding of instructions, follow-up care, 16:35 Patient left the ED. bp Signatures: Dispatcher [employer] Amy Levi RN RN iw Urbano Stock, RN RN bp Stacy Meredith PA-C PA-C sb4 Mirza Zamora rs6 Araceli Galloway cj3
--- NOTE | 2024-10-22 15:39 | EDPHYS ---
Physician Documentation [facility] Name: Dejuan Rahman Age: 54 yrs Sex: Male : 1970 Arrival Date: 10/22/2024 Time: 13:43 Bed 6 Private MD: ED Physician Leon Leung HPI: 10/22 14:18 This 54 yrs old Black Male presents to ER via Wheelchair with complaints of Neck Pain, sb4 Shoulder Pain, Foot Pain. 14:18 left shoulder pain, left neck pain, left ankle pain/swelling, generally weak. suffers sb4 from morbid obesity and severe lymphadema in right leg. has difficulty ambulating at a baseline, worse the past week. endorses sob with exertion. no chest pain, nausea, vomiting, fever, chills. Historical: - Allergies: 14:38 PENICILLINS; iw - PMHx: 14:08 lymphedema; iw - Immunization history:: Adult Immunizations unknown. - Infectious Disease History:: Denies. - Social history:: Smoking status: Patient denies any tobacco usage or history of. ROS: 14:18 Constitutional: Negative for fever, chills, and weight loss, sb4 14:18 Respiratory: Positive for dyspnea on exertion, 14:18 MS/extremity: Positive for pain, swelling, of the anterior aspect of left ankle, per HPI, Exam: 14:21 Head/Face: Normocephalic, atraumatic. Eyes: Extra-ocular motions intact. Periorbital sb4 areas with no swelling, redness, or edema. ENT: Mucous membranes moist. Cardiovascular: Regular rate and rhythm with a normal S1 and S2. Respiratory: No increased work of breathing, no retractions or nasal flaring. Skin: Warm, dry with normal turgor. Normal color with no rashes, no lesions, and no evidence of cellulitis. 14:21 Constitutional: The patient appears alert, awake, obese, 14:21 Musculoskeletal/extremity: Joints: the left shoulder displays pain at rest, painful range of motion, severe lymphedema entire right lower extremity. mild swelling left ankle. no pitting edema. Vital Signs: 14:35 BP 110 / 62; Pulse 85; Resp 16; Temp 98; Pulse Ox 99% ; bp 14:45 BP 131 / 71; Pulse 80; Pulse Ox 99% on R/A; rs6 MDM: 13:49 Medical Screening Exam initiated sb4 15:23 Data reviewed: vital signs, nurses notes, lab test result(s), EKG, radiologic studies. sb4 Care significantly affected by the following chronic conditions: Hypertension, Obesity. 10/22 14:15 Order name: Basic Metabolic Panel; Complete Time: 15:22 sb4 10/22 14:15 Order name: CBC with Diff; Complete Time: 15:10 sb4 10/22 14:15 Order name: Troponin HS; Complete Time: 15:22 sb4 10/22 14:15 Order name: XRAY Chest (1 view); Complete Time: 15:10 sb4 10/22 14:15 Order name: Shoulder Left (2 View) XRAY; Complete Time: 15:10 sb4 10/22 14:15 Order name: Ankle Left 3 View XRAY; Complete Time: 15:10 sb4 10/22 14:15 Order name: Cardiac monitoring; Complete Time: 14:27 sb4 10/22 14:15 Order name: EKG - Nurse/Tech; Complete Time: 14:50 sb4 10/22 14:15 Order name: IV Saline Lock; Complete Time: 14:50 sb4 10/22 14:15 Order name: Labs collected and sent; Complete Time: 14:50 sb4 10/22 14:15 Order name: O2 Per Protocol; Complete Time: 14:27 sb4 10/22 14:15 Order name: O2 Sat Monitoring; Complete Time: 14:27 sb4 EC:41 Rate is 80 beats/min. Rhythm is regular, Normal Sinus Rhythm. MI interval is normal at sb4 134 msec. QRS interval is normal at 84 msec. QT interval is normal at 378 msec. No Q waves. T waves are Normal. No ST changes noted. Interpreted by me. Reviewed by me. Administered Medications: 14:49 Drug: Methocarbamol PO 750 mg PO once Route: PO; bp 16:19 Follow up: Response: No adverse reaction bp 14:49 Drug: Ondansetron IVP 4 mg IVP once; over 2 minutes Route: IVP; Site: right antecubital;bp 16:19 Follow up: Response: No adverse reaction bp 14:50 Drug: Hydrocodone-Acetaminophen PO (7.5 mg-325 mg) 1 tabs PO once Route: PO; bp 16:19 Follow up: Response: No adverse reaction bp Disposition: 14:47 I was immediately available on-site in the Emergency Department for consultation in the ms3 care of the patient. Disposition Summary: 10/22/24 15:39 Discharge Ordered Notes: Location: Home sb4 Problem: new sb4 Symptoms: have improved sb4 Condition: Stable sb4 Diagnosis - Pain in left shoulder sb4 - Pain in left ankle and joints of left foot sb4 Followup: sb4 - With: Private Physician - When: 1 week - Reason: Recheck today's complaints, Re-evaluation by your physician Discharge Instructions: - Discharge Summary Sheet sb4 - Joint Pain sb4 - Musculoskeletal Pain sb4 - How to Use Cold Therapy, [id number] sb4 Forms: - Patient Portal Instructions sb4 - Leadership Thank You Letter sb4 Prescriptions: - Diclofenac Sodium 75 mg Oral Tablet Sustained Release - take 1 tablet ORAL route 2 times per day; 30 tablet; Refills: 0, Product sb4 Selection Permitted - methocarbamol 750 mg Oral tablet - take 1 tablet ORAL route every 6 hours; 20 tablet; Refills: 0, Product sb4 Selection Permitted Signatures: Dispatcher [employer] Amy Levi RN RN iw Urbano Stock RN RN Leon Stearns DO DO ms3 Stacy Meredith PA-C PA-C sb4 Corrections: (The following items were deleted from the chart) 14:15 14:15 BASIC METABOLIC PANEL+C.LAB.BRZ ordered. EDMS EDMS 14:15 14:15 CBC+H.LAB.BRZ ordered. EDMS EDMS 14:15 14:15 Troponin High Sensitivity+C.LAB.BRZ ordered. EDMS EDMS 14:15 14:15 Chest Single View+RAD.RAD.BRZ ordered. EDMS EDMS 14:15 14:15 Shoulder Left 2 View+RAD.RAD.BRZ ordered. EDMS EDMS 14:15 14:15 Ankle Left 3 View+RAD.RAD.BRZ ordered. EDMS EDMS
[2024-10-23 06:09] VITALS: TEMP 98; O2SAT 99
[2024-10-23 06:12] VITALS: BP 131/71
--- NOTE | 2024-10-23 12:35 | EKG ---
Test Date: 2024-10-22 Test Time: 14:34:11 Medicine Technologist: BP MEASUREMENT RESULTS: Intervals: Rate: 80 ND: 134 QRSD: 84 QT: 378 QTc: 435 [place]: P: 56 ND: 134 QRS: 40 T: -64 INTERPRETIVE STATEMENTS: Normal sinus rhythm T wave abnormality, consider inferior ischemia T wave abnormality, consider anterolateral ischemia Abnormal ECG Compared to ECG 01/12/2015 23:05:32 Possible ischemia now present Sinus tachycardia no longer present T-wave abnormality still present Electronically Signed On 10-23-24 12:34:33 CDT by Josh Julien
== END 2024-10-22 16:35 | disposition home or self-care (01) ==
LOC: ER 13:43
DX: M25.512 Pain in left shoulder (principal); M25.572 Pain in left ankle and joints of left foot; I89.0 Lymphedema, not elsewhere classified
CPT/HCPCS: 85025; 80048; 36415; 84484; 71045; 73030; 73610; J2405; 93005